=== PATIENT | male | born 1960 | race Caucasian/White ===

== ENCOUNTER → 2017-05-08 14:49 | Outpatient (CLI) | payer OTHER, SELFPAY ==
[2017-05-08 18:41] LABS: Microalbumin,Random Urine 9.8 mg/L (NO RANGE EST.); Microalbumin:Creatinine Ratio 6.6 mg/g CRE (<30 mg/g CRE)
[2017-05-08 18:47] LABS: Cholesterol 210 mg/dL (200); High Density Lipoprotein 43 mg/dL; Thyroid Stim Hormone (TSH) 1.05 uIU/mL (0.358-3.74); Triglycerides 196 mg/dL; Very Low Density Lipoprotein 39 mg/dL (5-40)
[2017-05-09 11:24] LABS: Vitamin B12 899 pg/mL (211-911)
== END ==
PROVIDERS: Family Provider Family Medicine; PCP Family Medicine; Visit Provider Family Medicine
DX: E78.00 Pure hypercholesterolemia, unspecified (principal); R20.2 Paresthesia of skin; I10 Essential (primary) hypertension
CPT/HCPCS: 36415; 80061; 82043; 82570; 82607; 84443

== ENCOUNTER → 2017-08-29 16:18 | Outpatient (CLI) | payer OTHER, SELFPAY ==
--- NOTE | 2017-08-29 | COLBX_PTH ---
PATIENT: ARI LEIGH LOC: [facility] U#:[id number] AGE/SX: 64/M ROOM: RE08/29/[address]: Dr. Jag Quintero MD : 1960 BED: DIS: SPEC #: [id number] RECD: 08/29/17 11:16 STATUS: LAITH JOSH #: [id number] JOSE: 08/29/17 00:[address]: Jag Quintero DEPT: SURGICAL PATHOLOGY RECD BY: Bob Hathaway ENTERED: 09/04/17 11:16 SP TYPE: COLON BX OTHR DR: Dr. Juan Polanco MD [facility] Tissues: Cecum, NOS Procedures: Surgery Specimen Level IV HEADER OPERATION: Colonoscopy with polypectomy PRE-OP DIAGNOSIS: Screening / polyp TISSUE SUBMITTED: Cecum polyp, rule out adenoma MICROSCOPIC DIAGNOSIS Cecal polyp, biopsy: Fragments of tubular adenoma. AM:terrell 09/05/17 MICROSCOPIC DESCRIPTION Slides are reviewed. GROSS DESCRIPTION Received in fixative is one container labeled with the patient's name and designated cecal biopsy. The specimen consists of multiple irregular fragments of light ho soft tissue that in aggregate measure 0.5 x 0.3 x 0.1 cm. The specimen is totally submitted in one cassette. / SJ:terrell 09/01/17 TC:5 CPT: 80199
== END ==
PROVIDERS: Family Provider Family Medicine; PCP Family Medicine; Visit Provider Internal Medicine Gastroenterology
DX: Z12.11 Encounter for screening for malignant neoplasm of colon (principal); D12.0 Benign neoplasm of cecum
CPT/HCPCS: 88305

== ENCOUNTER → 2018-08-10 12:10 | Outpatient (CLI) | payer BC, SELFPAY ==
--- NOTE | 2018-08-10 12:15 | US_ITS ---
STUDY: THYROID ULTRASOUND REASON FOR EXAM: Male, 57 years old. Nodule felt by physician TECHNIQUE: Ultrasound evaluation of the thyroid was performed with real-time and static kim-scale imaging. COMPARISON: None. FINDINGS: RIGHT LOBE: The right lobe of the thyroid gland measures 3.9 x 2.3 x 2.4 cm. There is a homogeneous echotexture. There are no demonstrated solid, cystic or complex lesions. LEFT LOBE: The left lobe of the thyroid gland measures 4.3 x 1.9 x 1.7 cm. There is a homogeneous echotexture. There is a solid 0.5 x 0.5 x 0.3 m nodule. This nodule is likely too small to be accurately evaluated with thyroid uptake study. Recommend a 6 month follow-up to assure stability. If it increases in size in the interim, biopsy would be recommended. ISTHMUS: The isthmus measures 0.4 cm. The regional lymph nodes are normal. US/Thyroid IMPRESSION: Normal sized homogeneous thyroid gland without 5 x 5 x 3 mm nodule in the mid left thyroid lobe. Recommend 6 month follow-up to assure stability Electronically Signed: Hernesto Titus MD at 18:09 EDT , Service support ,
== END ==
PROVIDERS: Family Provider Family Medicine; PCP Family Medicine; Referring Provider Family Medicine; Visit Provider Family Medicine
DX: E04.1 Nontoxic single thyroid nodule (principal)
CPT/HCPCS: 76536

== ENCOUNTER → 2018-10-20 12:19 | Outpatient (CLI) | payer BC, SELFPAY ==
[2018-10-20 14:28] LABS: ALB/GLOB Ratio 1.3 RATIO (0.9-2.4); AST(SGOT) 15 U/L (15-37); Alanine Aminotransfer ALT/SGPT 49 U/L (16-61); Albumin, Serum 4.1 g/dL (3.2-5.0); Alkaline Phosphatase 110 U/L (45-117); Anion Gap 8 (5-15); BUN 19 mg/dL (7-18); BUN/Creat Ratio 19.2 RATIO (10-20); Calcium,Total 9.5 mg/dL (8.5-10.1); Chloride 104 mmol/L (98-107); Cholesterol 177 mg/dL (200); Creatinine, Serum 0.99 mg/dL (0.70-1.30); EST Glomerular Filtration Rate 82 mL/min (>60); Est Glom Filt Rate - Afr Amer 99 mL/min (>60); Globulin 3.1 g/dL (2.2-4.2); Glucose 167 mg/dL (74-106); High Density Lipoprotein 46 mg/dL; Potassium 4.1 mmol/L (3.5-5.1); Protein, Total 7.2 g/dL (6.4-8.2); Sodium Level 140 mmol/L (136-145); Triglycerides 179 mg/dL; Very Low Density Lipoprotein 36 mg/dL (5-40)
[2018-10-20 14:30] LABS: Microalbumin,Random Urine 7.4 mg/L (NO RANGE EST.); Microalbumin:Creatinine Ratio 7.5 mg/g CRE (<30 mg/g CRE)
== END ==
PROVIDERS: Family Provider Family Medicine; PCP Family Medicine; Referring Provider Family Medicine; Visit Provider Family Medicine
DX: I10 Essential (primary) hypertension (principal); E78.00 Pure hypercholesterolemia, unspecified
CPT/HCPCS: 36415; 80053; 80061; 82043; 82570

== ENCOUNTER → 2018-11-19 12:18 | Outpatient (CLI) | payer BC, SELFPAY ==
[2018-11-19 13:52] LABS: Absolute Lymphocyte Count 1.36 X10^3/uL (0.83-4.51); Absolute Neutrophil Count 4.4 X10^3/uL (2.0-7.7); Basophil# 0.03 X10^3/uL; Basophil% 0.5 % (0-1); Eosinophil# 0.17 X10^3/uL; Eosinophils% 2.6 % (0-5); Hematocrit 40.2 % (40-54); Hemoglobin 13.4 g/dL (13.0-16.5); Lymphocyte # 1.36 X10^3/ul (4.0); Lymphocyte % 21.2 % (19-41); Mean Corp Hgb Conc 33.3 g/dL (32-36); Mean Corpuscular Hgb 32.3 pg (27.0-32.0); Mean Corpuscular Volume 96.9 fL (80-94); Mean Platelet Vol. 10.1 fl (6.2-12.0); Monocyte# 0.43 X10^3/uL; Monocyte% 6.7 % (0-10); NRBC Flagged by Analyzer 0 % (0-5); Neutrophil # 4.38 X10^3/uL (2.7-7.7); Neutrophil % 68.2 % (47-70); Platelet Count 207 K/mm3 (150-450); RBC Distribution Width CV 13.7 % (11.6-14.6); RBC Distribution Width SD 48.3 fl (35.1-43.9); Red Blood Count 4.15 M/mm3 (4.6-6.2); White Blood Count 6.4 K/mm3 (4.4-11.0)
== END ==
PROVIDERS: Family Provider Family Medicine; PCP Family Medicine; Referring Provider Internal Medicine Rheumatology; Visit Provider Internal Medicine Rheumatology
DX: D64.9 Anemia, unspecified (principal)
CPT/HCPCS: 36415; 85025

== ENCOUNTER → 2019-04-09 12:16 | Outpatient (CLI) | payer BC, SELFPAY ==
[2019-04-09 14:16] LABS: Color, Urine Yellow (Yellow); Glucose, Dipstick 1000 mg/dl (Normal); Ketone-Dipstick Negative (Negative); Leukocyte Esterase-Dipstick 25 /ul (Negative); Nitrite-Dipstick Negative (Negative); Occult Blood-Urine Negative /ul (Negative); Protein-Dipstick Negative (Negative); Specific Gravity, Urine 1.025 (1.002-1.030); Urine Bilirubin Dipstick Negative (Negative); Urine Clarity Clear (Clear); Urine Urobilinogen Normal (Normal)
[2019-04-09 14:17] LABS: Absolute Lymphocyte Count 1.37 X10^3/uL (0.83-4.51); Absolute Neutrophil Count 4.3 X10^3/uL (2.0-7.7); Basophil# 0.03 X10^3/uL; Basophil% 0.5 % (0-1); Eosinophil# 0.15 X10^3/uL; Eosinophils% 2.3 % (0-5); Hematocrit 45.9 % (40-54); Hemoglobin 15.2 g/dL (13.0-16.5); Lymphocyte # 1.37 X10^3/ul (4.0); Lymphocyte % 21.4 % (19-41); Mean Corp Hgb Conc 33.1 g/dL (32-36); Mean Corpuscular Hgb 31.1 pg (27.0-32.0); Mean Corpuscular Volume 94.1 fL (80-94); Mean Platelet Vol. 10.2 fl (6.2-12.0); Monocyte# 0.45 X10^3/uL; NRBC Flagged by Analyzer 0 % (0-5); Neutrophil % 67.4 % (47-70); Platelet Count 211 K/mm3 (150-450); RBC Distribution Width CV 13.4 % (11.6-14.6); RBC Distribution Width SD 45.6 fl (35.1-43.9); Red Blood Count 4.88 M/mm3 (4.6-6.2); White Blood Count 6.4 K/mm3 (4.4-11.0)
[2019-04-09 14:26] LABS: Bacteria RARE /hpf (None Seen); Mucous, Urine RARE /hpf (<or=2+); Red Blood Cells-Urine 0-5 SEEN /hpf (0-5); Squamous Epithelial Cells - UA 0-5 SEEN /hpf (0-5); White Blood Cells 0-5 SEEN /hpf (0-5)
[2019-04-09 14:40] LABS: Microalbumin,Random Urine 22.8 mg/L (NO RANGE EST.); Microalbumin:Creatinine Ratio 11.9 mg/g CRE (<30 mg/g CRE)
[2019-04-09 14:54] LABS: ALB/GLOB Ratio 1.1 RATIO (0.9-2.4); AST(SGOT) 24 U/L (15-37); Alanine Aminotransfer ALT/SGPT 57 U/L (16-61); Albumin, Serum 4.1 g/dL (3.2-5.0); Alkaline Phosphatase 129 U/L (45-117); Anion Gap 7 (5-15); BUN 18 mg/dL (7-18); BUN/Creat Ratio 16.8 RATIO (10-20); Chloride 103 mmol/L (98-107); Cholesterol 225 mg/dL (200); Creatinine, Serum 1.07 mg/dL (0.70-1.30); EST Glomerular Filtration Rate 75 mL/min (>60); Est Glom Filt Rate - Afr Amer 91 mL/min (>60); Globulin 3.8 g/dL (2.2-4.2); Glucose 224 mg/dL (74-106); High Density Lipoprotein 35 mg/dL; PSA,Total- Diagnostic 4.83 ng/mL (0.0-4.0); Potassium 4.1 mmol/L (3.5-5.1); Protein, Total 7.9 g/dL (6.4-8.2); Sodium Level 137 mmol/L (136-145); Triglycerides 175 mg/dL; Very Low Density Lipoprotein 35 mg/dL (5-40)
== END ==
PROVIDERS: Family Provider Family Medicine; PCP Family Medicine; Referring Provider Family Medicine; Visit Provider Family Medicine
DX: I10 Essential (primary) hypertension (principal); R35.8 Other polyuria; E88.81 Metabolic syndrome and other insulin resistance; E78.00 Pure hypercholesterolemia, unspecified
CPT/HCPCS: 36415; 80053; 80061; 81001; 82043; 82570; 83036; 84153; 85025

== ENCOUNTER → 2019-05-14 12:08 | Outpatient (CLI) | payer BC, SELFPAY ==
[2019-05-14 14:10] LABS: AST(SGOT) 12 U/L (15-37); Alanine Aminotransfer ALT/SGPT 38 U/L (16-61); Albumin, Serum 4.4 g/dL (3.2-5.0); Alkaline Phosphatase 93 U/L (45-117); Bilirubin, Direct 0.18 mg/dL (0.00-0.30); Globulin 3.2 g/dL (2.2-4.2); Protein, Total 7.6 g/dL (6.4-8.2)
== END ==
PROVIDERS: PCP Family Medicine; Referring Provider Internal Medicine Rheumatology; Visit Provider Internal Medicine Rheumatology
DX: R74.8 Abnormal levels of other serum enzymes (principal)
CPT/HCPCS: 36415; 80076

== ENCOUNTER 2019-08-17 13:44 | Outpatient (RCR) | payer BC, SELFPAY | END 2019-08-29 23:59 | LOC: DC 13:44 | PROVIDERS: PCP Family Medicine; Visit Provider Family Medicine | DX: Z71.3 Dietary counseling and surveillance (principal); E11.9 Type 2 diabetes mellitus without complications | CPT/HCPCS: 97802 ==

== ENCOUNTER 2019-09-21 13:00 | Outpatient (RCR) | payer BC, SELFPAY | END 2019-09-28 23:59 | LOC: DC 13:00 | PROVIDERS: PCP Family Medicine; Visit Provider Family Medicine | DX: Z71.3 Dietary counseling and surveillance (principal); E11.9 Type 2 diabetes mellitus without complications | CPT/HCPCS: 97803; G0108 ==

== ENCOUNTER 2019-10-06 12:24 | Outpatient (RCR) | payer BC, SELFPAY | END 2019-10-29 23:59 | LOC: DC 12:24 | PROVIDERS: PCP Family Medicine; Visit Provider Family Medicine | DX: Z71.3 Dietary counseling and surveillance (principal); E11.9 Type 2 diabetes mellitus without complications | CPT/HCPCS: G0108 ==

== ENCOUNTER 2019-11-03 14:11 | Outpatient (RCR) | payer BC, SELFPAY | END 2019-11-03 23:59 | disposition home or self-care (01) | LOC: DC 14:11 | PROVIDERS: PCP Family Medicine; Visit Provider Family Medicine | DX: Z71.3 Dietary counseling and surveillance (principal); E11.9 Type 2 diabetes mellitus without complications | CPT/HCPCS: 97803 ==

== ENCOUNTER → 2020-03-01 16:49 | Outpatient (CLI) | payer BC, SELFPAY ==
[2020-03-01 18:12] LABS: Absolute Lymphocyte Count 1.13 X10^3/uL (0.83-4.51); Absolute Neutrophil Count 3.4 X10^3/uL (2.0-7.7); Basophil# 0.03 X10^3/uL; Basophil% 0.6 % (0-1); Eosinophil# 0.14 X10^3/uL; Eosinophils% 2.8 % (0-5); Hematocrit 45.4 % (40-54); Hemoglobin 14.9 g/dL (13.0-16.5); Lymphocyte # 1.13 X10^3/ul (4.0); Lymphocyte % 22.9 % (19-41); Mean Corp Hgb Conc 32.8 g/dL (32-36); Mean Corpuscular Hgb 32.8 pg (27.0-32.0); Mean Platelet Vol. 10.2 fl (6.2-12.0); Monocyte% 4.1 % (0-10); NRBC Flagged by Analyzer 0 % (0-5); Neutrophil # 3.41 X10^3/uL (2.7-7.7); Neutrophil % 69.2 % (47-70); Platelet Count 223 K/mm3 (150-450); RBC Distribution Width CV 14.3 % (11.6-14.6); RBC Distribution Width SD 52.3 fl (35.1-43.9); Red Blood Count 4.54 M/mm3 (4.6-6.2); White Blood Count 4.9 K/mm3 (4.4-11.0)
[2020-03-01 18:46] LABS: Hemoglobin A1c 5.7 % (3.8-5.6)
[2020-03-01 19:09] LABS: ALB/GLOB Ratio 1.1 RATIO (0.9-2.4); AST(SGOT) 20 U/L (15-37); Alanine Aminotransfer ALT/SGPT 56 U/L (16-61); Albumin, Serum 4.3 g/dL (3.2-5.0); Alkaline Phosphatase 94 U/L (45-117); Anion Gap 9 (5-15); BUN 21 mg/dL (7-18); BUN/Creat Ratio 19.4 RATIO (10-20); Calcium,Total 9.8 mg/dL (8.5-10.1); Chloride 105 mmol/L (98-107); Cholesterol 222 mg/dL (200); Creatinine, Serum 1.08 mg/dL (0.70-1.30); EST Glomerular Filtration Rate 74 mL/min (>60); Est Glom Filt Rate - Afr Amer 89 mL/min (>60); Globulin 3.8 g/dL (2.2-4.2); Glucose 103 mg/dL (74-106); High Density Lipoprotein 59 mg/dL; PSA,Total- Diagnostic 4.53 ng/mL (0.0-4.0); Potassium 3.8 mmol/L (3.5-5.1); Protein, Total 8.1 g/dL (6.4-8.2); Sodium Level 139 mmol/L (136-145); Triglycerides 188 mg/dL; Very Low Density Lipoprotein 38 mg/dL (5-40)
== END ==
PROVIDERS: PCP Family Medicine; Referring Provider Family Medicine; Visit Provider Family Medicine
DX: M06.9 Rheumatoid arthritis, unspecified (principal); E11.9 Type 2 diabetes mellitus without complications; R97.20 Elevated prostate specific antigen [PSA]
CPT/HCPCS: 36415; 80053; 80061; 83036; 84153; 85025

== ENCOUNTER → 2020-06-09 12:24 | Outpatient (CLI) | payer BC, SELFPAY ==
[2020-06-09 15:06] LABS: AST(SGOT) 15 U/L (15-37); Alanine Aminotransfer ALT/SGPT 44 U/L (16-61); Albumin, Serum 4.2 g/dL (3.2-5.0); Alkaline Phosphatase 111 U/L (45-117); Bilirubin, Direct 0.13 mg/dL (0.00-0.30); Globulin 3.6 g/dL (2.2-4.2); Protein, Total 7.8 g/dL (6.4-8.2)
== END ==
PROVIDERS: PCP Family Medicine; Referring Provider Internal Medicine Rheumatology; Visit Provider Internal Medicine Rheumatology
DX: R74.8 Abnormal levels of other serum enzymes (principal)
CPT/HCPCS: 36415; 80076

== ENCOUNTER → 2020-08-11 10:16 | Outpatient (CLI) | payer BC, SELFPAY ==
[2020-08-11 12:08] LABS: Absolute Lymphocyte Count 1.18 X10^3/uL (0.83-4.51); Absolute Neutrophil Count 3.4 X10^3/uL (2.0-7.7); Basophil# 0.04 X10^3/uL; Basophil% 0.8 % (0-1); Eosinophils% 3.9 % (0-5); Hematocrit 41.7 % (40-54); Lymphocyte # 1.18 X10^3/ul (0.83-4.51); Lymphocyte % 22.8 % (19-41); Mean Corp Hgb Conc 33.6 g/dL (32-36); Mean Corpuscular Hgb 31.5 pg (27.0-32.0); Mean Corpuscular Volume 93.9 fL (80-94); Mean Platelet Vol. 10.4 fl (6.2-12.0); Monocyte% 5.8 % (0-10); NRBC Flagged by Analyzer 0 % (0-5); Neutrophil # 3.42 X10^3/uL (2.7-7.7); Neutrophil % 66.1 % (47-70); Platelet Count 226 K/mm3 (150-450); RBC Distribution Width CV 13.2 % (11.6-14.6); RBC Distribution Width SD 45.3 fl (35.1-43.9); Red Blood Count 4.44 M/mm3 (4.6-6.2); White Blood Count 5.2 K/mm3 (4.4-11.0)
[2020-08-11 12:56] LABS: Vitamin D,25 Hydroxy 43.1 ng/mL
[2020-08-11 12:59] LABS: ALB/GLOB Ratio 1.2 RATIO (0.9-2.4); AST(SGOT) 19 U/L (15-37); Alanine Aminotransfer ALT/SGPT 45 U/L (16-61); Alkaline Phosphatase 99 U/L (45-117); Anion Gap 8 (5-15); BUN 18 mg/dL (7-18); BUN/Creat Ratio 17.1 RATIO (10-20); Chloride 105 mmol/L (98-107); Cholesterol 189 mg/dL (200); Creatinine, Serum 1.05 mg/dL (0.70-1.30); EST Glomerular Filtration Rate 76 mL/min (>60); Est Glom Filt Rate - Afr Amer 92 mL/min (>60); Globulin 3.3 g/dL (2.2-4.2); Glucose 184 mg/dL (74-106); High Density Lipoprotein 46 mg/dL; PSA,Total- Diagnostic 4.46 ng/mL (0.0-4.0); Potassium 3.9 mmol/L (3.5-5.1); Protein, Total 7.3 g/dL (6.4-8.2); Sodium Level 139 mmol/L (136-145); Thyroid Stim Hormone (TSH) 1.26 uIU/mL (0.358-3.74); Triglycerides 140 mg/dL; Very Low Density Lipoprotein 28 mg/dL (5-40)
[2020-08-11 13:14] LABS: Hemoglobin A1c 7.7 % (3.8-5.6)
== END ==
PROVIDERS: PCP Family Medicine; Referring Provider Family Medicine; Visit Provider Family Medicine
DX: E11.65 Type 2 diabetes mellitus with hyperglycemia (principal); R97.20 Elevated prostate specific antigen [PSA]; M06.9 Rheumatoid arthritis, unspecified
CPT/HCPCS: 36415; 80053; 80061; 82306; 83036; 84153; 84443; 85025

== ENCOUNTER → 2020-09-01 07:43 | Outpatient (CLI) | payer BC, SELFPAY ==
--- NOTE | 2020-09-01 07:48 | US_ITS ---
STUDY: ABDOMINAL ULTRASOUND - RIGHT UPPER QUADRANT REASON FOR VISIT: Male, 59 years old ELEVATED LIVER ENZYMES TECHNIQUE: Ultrasound evaluation of the right upper quadrant was performed with real-time and static kim-scale imaging. TECHNICAL QUALITY: Adequate. COMPARISON: None. FINDINGS: Liver: The liver measures 14.9 cm. There is increased echogenicity consistent with fatty infiltration. The bile ducts are within normal limits. There is hepatic color flow. The direction of portal flow is hepatopetal. There is no demonstrated mass lesion. Gallbladder: Normal distended gallbladder. The gallbladder wall measures 2.6 mm. There is a negative sonographic Dillard''s sign. There is no pericholecystic fluid. There are no gallstones. Common Bile Duct (C.B.D.): The common bile duct measures 5.4 mm. Pancreas: Normal size of the head, body and tail of the pancreas. There is increased echogenicity of the pancreas. There is no demonstrated pancreatic mass or cyst. Right Kidney: Normal size of the right kidney. The right kidney measures 11.3 cm x 5.4 cm x 5.8 cm. Normal renal cortex. The right cortex measures 2 cm. There is no demonstrated renal mass or cyst. There is no right hydronephrosis. US/Liver IMPRESSION: Fatty infiltration of the liver. Electronically Signed: Nilson Payan MD at 13:09 EDT , Service support ,
== END ==
PROVIDERS: PCP Family Medicine; Visit Provider Internal Medicine Rheumatology
DX: R74.8 Abnormal levels of other serum enzymes (principal)
CPT/HCPCS: 76705

== ENCOUNTER → 2020-10-06 12:41 | Outpatient (CLI) | payer BC, SELFPAY ==
[2020-10-06 16:27] LABS: AST(SGOT) 14 U/L (15-37); Alanine Aminotransfer ALT/SGPT 40 U/L (16-61); Albumin, Serum 4.4 g/dL (3.2-5.0); Alkaline Phosphatase 95 U/L (45-117); Bilirubin, Direct 0.09 mg/dL (0.00-0.30); Globulin 3.6 g/dL (2.2-4.2)
== END ==
PROVIDERS: PCP Family Medicine; Referring Provider Internal Medicine Rheumatology; Visit Provider Internal Medicine Rheumatology
DX: R74.8 Abnormal levels of other serum enzymes (principal)
CPT/HCPCS: 36415; 80076

== ENCOUNTER 2021-05-15 09:00 | Outpatient (CLI) | payer BC, SELFPAY ==
[2021-05-15 10:58] LABS: Microalbumin,Random Urine 10.1 mg/L (NO RANGE EST.)
[2021-05-15 11:00] LABS: Hemoglobin A1c 5.9 % (3.8-5.6)
[2021-05-15 11:20] LABS: ALB/GLOB Ratio 1.1 RATIO (0.9-2.4); AST(SGOT) 19 U/L (15-37); Alanine Aminotransfer ALT/SGPT 49 U/L (16-61); Albumin, Serum 3.8 g/dL (3.2-5.0); Alkaline Phosphatase 84 U/L (45-117); Anion Gap 7 (5-15); BUN 18 mg/dL (7-18); Chloride 112 mmol/L (98-107); Cholesterol 186 mg/dL (200); Creatinine, Serum 1.06 mg/dL (0.70-1.30); EST Glomerular Filtration Rate 75 mL/min (>60); Est Glom Filt Rate - Afr Amer 91 mL/min (>60); Globulin 3.5 g/dL (2.2-4.2); Glucose 130 mg/dL (74-106); High Density Lipoprotein 42 mg/dL; PSA,Total - Annual Screen 5.46 ng/mL (0.00-4.00); Potassium 3.6 mmol/L (3.5-5.1); Protein, Total 7.3 g/dL (6.4-8.2); Sodium Level 143 mmol/L (136-145); Triglycerides 131 mg/dL; Very Low Density Lipoprotein 26 mg/dL (5-40)
== END 2021-05-15 23:59 | disposition home or self-care (01) ==
LOC: MFPLAB 09:04
PROVIDERS: PCP Family Medicine; Referring Provider Family Medicine; Visit Provider Family Medicine
DX: Z00.00 Encounter for general adult medical examination without abnormal findings (principal); E11.8 Type 2 diabetes mellitus with unspecified complications; N40.0 Benign prostatic hyperplasia without lower urinary tract symptoms
CPT/HCPCS: 36415; 80053; 80061; 82043; 82570; 83036; 84153; G0103

== ENCOUNTER 2021-07-03 11:53 | Outpatient (CLI) | payer BC, SELFPAY | END 2021-07-03 23:59 | disposition home or self-care (01) | LOC: MTLAB 11:54 | PROVIDERS: PCP Family Medicine; Referring Provider Family Medicine; Visit Provider Family Medicine | DX: R97.20 Elevated prostate specific antigen [PSA] (principal) | CPT/HCPCS: 36415; 84153 ==

== ENCOUNTER → 2021-10-04 | Outpatient (CLI) | payer BC, SELFPAY ==
--- NOTE | 2021-10-04 08:00 | PROSBIL_PTH ---
PATIENT: ARI LEIGH LOC: [facility] U#:[id number] AGE/SX: 60/M ROOM: RE10/04/[address]: Dr. Tawanda Benoit MD : 1960 BED: DIS: 10/04/2021 SPEC #: [id number] RECD: 10/04/21 16:23 STATUS: LAITH MORENO #: [id number] JOSE: 10/04/21 08:[address]: Tawanda Benoit DEPT: SURGICAL PATHOLOGY RECD BY: Jaylin Villa ENTERED: 10/05/21 08:38 SP TYPE: PROST BX [place] DR: Dr. Juan Polanco MD Tissues: A - PROSTATE RIGHT B - PROSTATE RIGHT C - PROSTATE RIGHT D - PROSTATE LEFT E - PROSTATE LEFT F - PROSTATE LEFT Procedures: PROSTATE BX HEADER OPERATION: Prostate biopsy PRE-OP DIAGNOSIS: Elevated PSA TISSUE SUBMITTED: A - Right apex, B - Right mid, C - Right base, D - Left apex, E - Left mid, F - Left base MICROSCOPIC DIAGNOSIS A. Right prostate, apex, core biopsy: Prostatic tissue, negative for malignancy. Focal mild chronic inflammation. B. Right prostate, mid, core biopsy: Prostatic tissue, negative for malignancy. C. Right prostate, base, core biopsy: Prostatic tissue, negative for malignancy. D. Left prostate, apex, core biopsy: Prostatic tissue, negative for malignancy. E. Left prostate, mid, core biopsy: Prostatic tissue, negative for malignancy. Focal atrophy and mild chronic inflammation. F. Left prostate, base, core biopsy: Prostatic tissue, negative for malignancy. SJ:terrell 10/08/2021 MICROSCOPIC DESCRIPTION Slides are reviewed. GROSS DESCRIPTION A - Received is one container designated prostate, right apex. The specimen consists of two elongated fragments of light ho-white soft tissue measuring 1.2 and 1.5 cm in length and 0.1 cm in diameter. The specimen is totally submitted in one cassette. B - Received is one container designated prostate, right mid. The specimen consists of two elongated fragments of light ho-white soft tissue measuring 0.8 and 1.7 cm in length and 0.1 cm in diameter. The specimen is totally submitted in one cassette. C - Received is one container designated prostate, right base. The specimen consists of one elongated fragment of light ho-white soft tissue measuring 2 cm in length and 0.1 cm in diameter. The specimen is totally submitted in one cassette. D - Received is one container designated prostate, left apex. The specimen consists of two elongated fragments of light ho-white soft tissue measuring 0.8 and 1.5 cm in length and 0.1 cm in diameter. The specimen is totally submitted in one cassette. E - Received is one container designated prostate, left mid. The specimen consists of two elongated fragments of light ho-white soft tissue measuring 0.3 and 1.2 cm in length and 0.1 cm in diameter. The specimen is totally submitted in one cassette. F - Received is one container designated prostate, left base. The specimen consists of two elongated fragments of light ho-white soft tissue measuring 1 and 1.5 cm in length and 0.1 cm in diameter. The specimen is totally submitted in one cassette. / SJ:rg 10/05/2021 TC:3 CPT: 89942 x6
== END | disposition home or self-care (01) ==
LOC: LABSPEC 16:39
PROVIDERS: PCP Family Medicine; Referring Provider Urology; Visit Provider Urology
DX: R97.20 Elevated prostate specific antigen [PSA] (principal)
CPT/HCPCS: 88305; G0416

== ENCOUNTER → 2021-11-22 | Outpatient (CLI) | payer BC, SELFPAY ==
--- NOTE | 2021-11-22 16:41 | RAD_ITS ---
STUDY: X-RAY - LEFT KNEE REASON FOR EXAM: Male, 61 years old. PAIN TECHNIQUE: 4 view(s) of the knee. Standing COMPARISON: None. FINDINGS: Normal visualized distal femur. Normal visualized proximal tibia and fibula. Normal proximal tibiofibular articulation. There is moderate degenerative arthrosis of the medial femorotibial compartment with moderate joint space narrowing. There is mild degenerative arthrosis of the lateral femorotibial compartment. There is mild degenerative arthrosis of the patellofemoral articulation. Moderate to severe medial compartment joint space height loss The soft tissue structures are unremarkable. RAD/Knee 4 or More Views IMPRESSION: Degenerative changes as above Electronically Signed: Clement Schaffer DO at 0:47 EDT ,
== END | disposition home or self-care (01) ==
LOC: MTRAD 16:41
PROVIDERS: PCP Family Medicine; Referring Provider Family Medicine; Visit Provider Family Medicine
DX: M25.562 Pain in left knee (principal)
CPT/HCPCS: 73564

== ENCOUNTER 2022-02-04 08:17 | Outpatient (RCR) | payer BC, SELFPAY ==
--- NOTE | 2022-02-04 09:27 | HP.OTEVAL ---
Patient's Visit Information REA LEIGH is a 61 year old M, referred to Occupational Therapy by Dr. Aaron Davis DO, with a diagnosis of Right Palmar fascial fibromatosis (Dupuytren's). Date of Evaluation: 02/04/22 Occupational Therapist: Suly Vera, CAESAR/Rossy, CHT - Subjective This 61 year old male was seen for OT eval with dx of left palmar fascial fibromatosis (Dupuytran's) and had the xiaflex injection with manipulation done- pt states he is in brace at night - and reports dr. 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 pt is right handed- - ROM MP: right LF -15/85 left LF-10/90 right RF -20/80 left -10/80 PIP: right LF +15/85 left LF -5/90 right RF +25/95 left -10/100 DIP: right LF 0/45 left LF 0/55 right RF 0/45 left RF 0/50 - Strength [employer] Director: right 95# left 85# Lateral Pinch: right 14# left 14# Tripod Pinch: right 16# left 14# - Sensation Sensation Comments: denies - - Quick DASH-Disab of Arm,Shoulder& Hand Quick DASH Score: 12.5000 - Goals Goal:ROM equal to unaffected hand: Yes Goal:Full use of affected hand in daily activities including: Yes - Rehabilitation General Assessment: pt arrives after having Ziaflex injection with manipulation on left LF to decrease MCP and PIP PIP contractures- pt presents today with great extension of left LF but limited ability to form a composite fist- Pt wants to make full composite fist so arrives today with questions on what he can do to gain ROM. Therapist ed. pt on dx, and PROM AROM and place hand hold ex. and scar massage- pt was given handout and demo. understanding of his Exercise and agree to POC. Rehabilitation Potential: Good - Anticipated Interventions A/AAROM/PROM, Orthoses, Home Program - Visit Plan TEXT: Thank you for the opportunity to evaluate your patient. For Medicare and Medicare HMO plans, please review the plan of care and approve it. It will need to be FAXED BACK to us at [phone] for Medicare purposes. Please let me know if there are questions or concerns regarding this plan of care. Physician Signature: Date:
--- NOTE | 2022-04-18 13:28 | HP.OT.NRP ---
REA CHRISTIANE CARRERAGARTNER was seen in my office for initial evaluation on 02/04/22. The following Plan of Care was established for this patient: Anticipated Interventions: A/AAROM/PROM, Orthoses, Home Program This patient was last seen in our office 02/04/22. Pertinent comments regarding their Occupational therapy will appear below: pt was seen for one OT session and at this time has not scheduled further apts. pt d/c due to time lapse in services. At this point I will be discontinuing this patient from occupational therapy. I would be happy to see this patient again in the future if found appropriate by the physician. Thank you! Suly Vera, OTR/L, CHT
== END 2022-02-04 19:00 | disposition home or self-care (01) ==
LOC: OT 08:17
PROVIDERS: PCP Family Medicine; Referring Provider Student in an Organized Health Care Education/Training Program; Visit Provider Student in an Organized Health Care Education/Training Program
DX: M72.0 Palmar fascial fibromatosis [Dupuytren] (principal)
CPT/HCPCS: 97110; 97166

== ENCOUNTER → 2022-03-08 | Outpatient (CLI) | payer BC, SELFPAY ==
[2022-03-08 15:47] LABS: AST(SGOT) 13 U/L (15-37); Alanine Aminotransfer ALT/SGPT 51 U/L (16-61); Albumin, Serum 4.3 g/dL (3.2-5.0); Alkaline Phosphatase 95 U/L (45-117); Bilirubin, Direct 0.14 mg/dL (0.00-0.30); Globulin 3.1 g/dL (2.2-4.2); Protein, Total 7.4 g/dL (6.4-8.2)
== END | disposition home or self-care (01) ==
LOC: MTLAB 12:33
PROVIDERS: PCP Family Medicine; Referring Provider Internal Medicine Rheumatology; Visit Provider Internal Medicine Rheumatology
DX: R74.8 Abnormal levels of other serum enzymes (principal)
CPT/HCPCS: 36415; 80076

== ENCOUNTER → 2022-04-04 | Outpatient (CLI) | payer BC, SELFPAY ==
[2022-04-04 14:12] LABS: PSA,Total- Diagnostic 5.19 ng/mL (0.0-4.0)
== END | disposition home or self-care (01) ==
LOC: LAB 12:31
PROVIDERS: PCP Family Medicine; Referring Provider Urology; Visit Provider Urology
DX: R97.20 Elevated prostate specific antigen [PSA] (principal)
CPT/HCPCS: 36415; 84153

== ENCOUNTER 2022-09-16 19:25 | Observation (INO) | payer OTHER, SELFPAY ==
[2022-09-16] VITALS (12 sets, daily range): BP systolic 164–213; BP diastolic 93–113; PULSE 77–88; RESP 12–20; TEMP 36.4–36.6; O2SAT 92–99; BMI 31.5; BMI 31.2
--- NOTE | 2022-09-16 19:38 | CT_ITS ---
We are attempting to reach an attending provider to discuss findings. An addendum with communication details will be sent when the communication is complete. INDICATION: Neuro deficit, acute, stroke suspected EXAMINATION: CT BRAIN - CT Head Stroke Protocol W/O Contrast Injection TECHNIQUE: Multiple axial images were obtained of the head without intravenous contrast. A radiation dose optimization technique was used for this scan. IV Contrast dosage and agent: None. COMPARISON: FINDINGS: BRAIN PARENCHYMA: No intra- or extra-axial hemorrhage. No evidence of acute infarct. No intracranial mass or mass effect. There is preservation of the kim/white matter interface. Posterior fossa structures are unremarkable. CSF SPACES: Appropriate for age. No hydrocephalus. Basal cisterns are patent. CALVARIUM, SKULL BASE, PARANASAL SINUSES AND MASTOID AIR CELLS: Clear. No discrete lytic or blastic abnormalities. ORBITS: Both globes, extraocular muscles, optic nerves and retrobulbar fat appear unremarkable. ASPECTS Score for Acute Strokes: 10 CT/STROKE Brain/Head without Cont IMPRESSION: Negative Brain CT without contrast. Electronically Signed: Alec Lee DO at 19:54 EDT ,
--- NOTE | 2022-09-16 19:45 | EDS_ITS ---
HPI History of Present Illness Chief Complaint: Stroke Alert Informant: patient Onset/Context/Timing Onset: Today Narrative Narrative: Patient presents to triage with stroke symptoms. Patient states he worked today and felt fine. Around 7 PM this evening he was doing dishes when he started feeling dizzy and his left knee popped. He states it fell like it gave out on him. Family reports that he had left-sided facial droop and he had some vision loss from his left eye. Symptoms are all improving at this time but he states is not quite back to baseline. He does report a history of diabetes. He does admit that he has been out of his diabetes medications and has not taken them in quite some time. [facility] Medical History Diabetes High cholesterol HTN (hypertension) Home Medications leucovorin calcium 5 mg tablet 5 mg PO QWEEK 09/16/22 [History Last Taken Unknown] methotrexate sodium 2.5 mg tablet 2.5 mg PO QWEEK 09/16/22 [History Last Taken Unknown] Allergy/AdvReac Type Severity Reaction Status Date / Time No Known Allergies Allergy Verified 09/16/22 19:31 Social History Smoking Status: Never smoker ROS ROS ED Constitutional Constitutional ED: Denies chills or fever(s) Eyes Eyes: Reports change in vision; Denies discharge from eye(s) ENT ENT ED: Denies discharge from eye(s), rhinorrhea or sore throat Cardiovascular Cardiovascular: Denies chest pain or palpitations Respiratory/Chest Respiratory/Chest: Denies cough or dyspnea Gastrointestinal Gastrointestinal: Denies abdominal pain, nausea or vomiting Genitourinary Genitourinary ED: Denies dysuria Musculoskeletal Musculoskeletal: Denies back pain or extremity pain Integumentary Denies Abrasions or rash Neurologic Neurologic: Reports paresthesias and weakness; Denies headache(s) Psychiatric Psychiatric: Denies anxiety or depression Allergic/Immunologic Allergic/Immunologic ED: Denies lip swelling or urticaria EXAM Physical Exam Const Vital Signs: 09/16/22 19:28 09/16/22 19:41 09/16/22 19:38 Temperature 97.5 F L Temperature Source Temporal Pulse Rate 86 88 83 Respiratory Rate 16 16 Blood Pressure 203/113 H 213/112 H Blood Pressure Mean 143 145 Pulse Ox 97 97 Oxygen Delivery Method Room Air 09/16/22 19:51 09/16/22 20:08 09/16/22 20:30 Temperature 97.9 F Temperature Source Oral Pulse Rate 85 87 87 Respiratory Rate 15 18 20 H Blood Pressure 200/93 H 184/93 H 164/100 H Blood Pressure Mean 128 123 121 Pulse Ox 93 92 97 Oxygen Delivery Method Room Air Room Air Room Air 09/16/22 21:00 09/16/22 21:30 Temperature Temperature Source Pulse Rate 86 77 Respiratory Rate 16 12 Blood Pressure 174/94 H 169/99 H Blood Pressure Mean 120 122 Pulse Ox 96 97 Oxygen Delivery Method Room Air Room Air Positive well nourished and well developed General Appearance ED: well developed HEENT Reports normocephalic and head/scalp atraumatic Eyes PERRL and EOMs intact bilaterally Neck supple Chest Wall inspection of chest normal and palpation of chest normal Resp normal respiratory effort and clear to auscultation bilaterally Cardio regular rate and regular rhythm GI normal to inspection, nondistended, normoactive bowel sounds Palpation: soft Extremity normal to inspection Neuro oriented x3 and no sensory deficits noted Sensorium / Orientation: alert Motor Exam: strength 5/5 throughout Psych mental status grossly normal Skin no rashes or lesions noted NIHSS NIHSS Initial: 1a Level of Consciousness: 0 1b LOC Questions (Score 2 if aphasic/stupor): 0 1c LOC Commands (Only score 1st attempt): 0 2 Best Gaze (If aphasic, use reflexive mvmts.): 0 3 Visual: 0 4 Facial Palsy: 0 5 Motor Arm Right (UN = amputation/fusion): 0 5 Motor Arm Left: 0 6 Motor Leg Right: 0 6 Motor Leg Left: 0 7 Limb ataxia (Only + if out of proportion): 0 8 Sensory (Aphasia/stupor=0 or 1, coma=2): 0 9 Best Language: 0 10 Dysarthria (mute, coma=2, intubated=UN): 0 11 Extinction and Inattention (only scored if +): 0 Total Score: 0 MDM MDM MDM Narrative Medical decision making narrative: Stroke work-up initiated. Neurologist from [facility] evaluate the patient online and again felt his NIH was 0. She recommended CTA to ensure no LVO but would require observation for the remainder of the stroke work-up. Lab Data Attestation: I reviewed the patient's lab results. Labs: Laboratory Results - last 24 hr 09/16/22 09/16/22 09/16/22 19:30 19:40 19:40 WBC 6.4 RBC 4.93 Hgb 15.7 Hct 45.1 MCV 91.5 MCH 31.8 MCHC 34.8 RDW Std Deviation 44.8 H RDW Coeff of Jason 13.4 Plt Count 185 MPV 10.3 Immature Gran % (Auto) 0.600 Neut % (Auto) 60.6 Lymph % (Auto) 27.8 [place] % (Auto) 7.5 Eos % (Auto) 3.0 Baso % (Auto) 0.5 Absolute Neuts (auto) 3.9 Absolute Lymphs (auto) 1.77 Nucleated RBC % 0 PT 12.6 INR 0.9 APTT 27.4 Sodium Potassium Chloride Carbon Dioxide Anion Gap BUN Creatinine Estim Creat Clear Calc Est GFR (MDRD) Af Amer Est GFR (MDRD) Non-Af BUN/Creatinine Ratio Glucose Calcium Troponin I High Sens POC Glucose 250 H 09/16/22 19:40 WBC RBC Hgb Hct MCV MCH MCHC RDW Std Deviation RDW Coeff of Jason Plt Count MPV Immature Gran % (Auto) Neut % (Auto) Lymph % (Auto) [place] % (Auto) Eos % (Auto) Baso % (Auto) Absolute Neuts (auto) Absolute Lymphs (auto) Nucleated RBC % PT INR APTT Sodium 139 Potassium 3.8 Chloride 107 Carbon Dioxide 26.0 Anion Gap 6 BUN 23 H Creatinine 1.12 Estim Creat Clear Calc 69.70 Est GFR (MDRD) Af Amer 85 Est GFR (MDRD) Non-Af 70 BUN/Creatinine Ratio 20.5 H Glucose 270 H Calcium 10.2 H Troponin I High Sens 6 POC Glucose Radiography Chest X-Ray - ED: 1 View, Read by ED Physician, Normal, Heart, Lungs and Medias tinum Diagnostic Testing: Clinical Impression(s) from Imaging Studies Brain CT 09/16/22 19:38 IMPRESSION: Negative Brain CT without contrast. Electronically Signed: Alec Lee DO at 19:54 EDT Reading Location ID and State: [facility] / [place] Tel [phone], Service support , ADDENDUM: 09/16/222001 IMPRESSION: Negative Brain CT without contrast. N.B. : The above Results were Read Back by Alec Lee DO to Jacinda Chung MD, and understanding confirmed on 09/16/2022 19:55:16 (ET). Electronically Signed: Alec Lee DO at 19:54 EDT , ADDENDUM: 09/16/222007 IMPRESSION: Negative Brain CT without contrast. N.B. : The above Results were Read Back by Alec Lee DO to Jacinda Chung MD, and understanding confirmed on 09/16/2022 20:01:11 (ET). Electronically Signed: Alec Lee DO at 19:54 EDT , Chest X-Ray 09/16/22 19:55 IMPRESSION: No radiographic evidence of acute cardiopulmonary disease. Electronically Signed: Alec Lee DO at 20:43 EDT , Head/Neck CTA 09/16/22 20:45 IMPRESSION: Short segment high-grade stenosis at the proximal right posterior cerebral artery. Moderate stenosis of the intracranial segment of right vertebral artery. Electronically Signed: Alec Lee DO at 21:19 EDT , EKG Initial EKG: Attestation: I personally reviewed and interpreted this EKG as follows: Interpretation: Sinus Rhythm (Sinus at 91 with PACs. No acute ischemia.) Treatment and Re-Evaluation Narrative: Patient has an NIH stroke score of 0 at this time and appears to have had a TIA. CBC is unremarkable. Coags are normal. Glucose on arrival is 250 and chemistry studies confirm a glucose of 270. Renal function reveals a BUN of 23 and a creatinine 1.12. Troponin is normal at 6. Portable chest x-ray per my interpretation is normal. Radiology interpretation is reviewed. Head CT noncontrast shows no acute findings. CTA of the head and neck reveals a 80 to 90% stenosis in the right posterior cerebral artery. I spoke with both Dr. Mayes as well as the stroke neurologist regarding this. They both agree that this is medical management and no intervention will be required. This is been discussed with the patient. I will speak with the hospitalist regarding admission for remainder of stroke work-up. Discharge Plan Triage Chief Complaint: Stroke Alert ED Provider: Jacinda Chung Dx/Rx/DC Orders Clinical Impression: Brain TIA Prescriptions: No Action methotrexate sodium 2.5 mg tablet 2.5 mg PO QWEEK Rx Instructions: FRIDAY leucovorin calcium 5 mg tablet 5 mg PO QWEEK Rx Instructions: FRIDAY Primary Care Provider: Juan Polanco Referrals: Juan Polanco MD [Primary Care Provider] - Disposition Disposition: Acute Care Hospital [facility]
[2022-09-16 19:52] LABS: Bedside Glucose 250 mg/dL (74-106)
--- NOTE | 2022-09-16 19:55 | RAD_ITS ---
INDICATION: Neuro deficit, acute, stroke suspected EXAMINATION/TECHNIQUE: X-RAY - XR Chest 1 View COMPARISON: FINDINGS: LINES/DEVICES: None. LUNGS: No consolidation, edema or effusion. No pneumothorax. MEDIASTINUM AND CARDIOVASCULAR STRUCTURES: Cardiac silhouette not enlarged. Central airways and mediastinal contour are unremarkable. BONES AND SOFT TISSUES: There are multiple probable old left rib fractures. RAD/Chest 1 View IMPRESSION: No radiographic evidence of acute cardiopulmonary disease. Electronically Signed: Alec Lee DO at 20:43 EDT ,
[2022-09-16 19:57] LABS: Absolute Lymphocyte Count 1.77 X10^3/uL (0.83-4.51); Absolute Neutrophil Count 3.9 X10^3/uL (2.0-7.7); Basophil# 0.03 X10^3/uL; Basophil% 0.5 % (0-1); Eosinophil# 0.19 X10^3/uL; Hematocrit 45.1 % (40-54); Hemoglobin 15.7 g/dL (13.0-16.5); Lymphocyte # 1.77 X10^3/ul (0.83-4.51); Lymphocyte % 27.8 % (19-41); Mean Corp Hgb Conc 34.8 g/dL (32-36); Mean Corpuscular Hgb 31.8 pg (27.0-32.0); Mean Corpuscular Volume 91.5 fL (80-94); Mean Platelet Vol. 10.3 fl (6.2-12.0); Monocyte# 0.48 X10^3/uL; Monocyte% 7.5 % (0-10); NRBC Flagged by Analyzer 0 % (0-5); Neutrophil # 3.86 X10^3/uL (2.7-7.7); Neutrophil % 60.6 % (47-70); Platelet Count 185 K/mm3 (150-450); RBC Distribution Width CV 13.4 % (11.6-14.6); RBC Distribution Width SD 44.8 fl (35.1-43.9); Red Blood Count 4.93 M/mm3 (4.6-6.2); White Blood Count 6.4 K/mm3 (4.4-11.0)
[2022-09-16 20:10] LABS: International Normalized Ratio 0.9; Prothrombin Time (Protime)PT. 12.6 SECONDS (11.7-14.9)
[2022-09-16 20:11] LABS: Partial Thromboplast Time 27.4 Seconds (24.1-36.2)
[2022-09-16 20:20] LABS: Anion Gap 6 (5-15); BUN 23 mg/dL (7-18); BUN/Creat Ratio 20.5 RATIO (10-20); Calcium,Total 10.2 mg/dL (8.5-10.1); Chloride 107 mmol/L (98-107); Creatinine, Serum 1.12 mg/dL (0.70-1.30); EST Glomerular Filtration Rate 70 mL/min (>60); Est Glom Filt Rate - Afr Amer 85 mL/min (>60); Glucose 270 mg/dL (74-106); Potassium 3.8 mmol/L (3.5-5.1); Sodium Level 139 mmol/L (136-145); Troponin-I HS 6 pg/mL (3.0-78.0)
--- NOTE | 2022-09-16 20:45 | CT_ITS ---
INDICATION: TIA EXAMINATION: CTA BRAIN/NECK WITH CONTRAST TECHNIQUE: Routine carotid CT angiogram protocol was performed without and with IV contrast. In addition, images were obtained of the [place] of [place]. NASCET criteria using the distal ICAs for comparison were used for evaluation of stenoses. 3D reconstructions were reviewed. A radiation dose optimization technique was used for this scan. IV Contrast dosage and agent: COMPARISON: None. FINDINGS: --CTA NECK: AORTIC ARCH AND BRANCHES: Normal anatomy, patent. RIGHT CCA: No occlusion, significant stenosis or dissection. RIGHT CAROTID BULB: Mild atherosclerotic calcifications with no hemodynamically significant stenosis. RIGHT ICA: No occlusion, significant stenosis or dissection. LEFT CCA: No occlusion, significant stenosis or dissection. LEFT CAROTID BULB: Mild atherosclerotic calcifications with no hemodynamically significant stenosis. LEFT ICA: No occlusion, significant stenosis or dissection. RIGHT VERTEBRAL ARTERY: No occlusion, significant stenosis or dissection. LEFT VERTEBRAL ARTERY: No occlusion, significant stenosis or dissection. NECK SOFT TISSUES: Unremarkable. --CTA HEAD: --Anterior circulation: ICAs: Atherosclerotic calcifications at the cavernous segments bilaterally with up to 50% luminal stenosis on the right and less than 50% on the left. ACAs: No significant stenosis at the visualized segments. ACOM: Present. MCAs: No significant stenosis at the visualized segments. --Posterior circulation: PCOMs: Nonvisualization bilaterally. 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 There is a 5 mm segment of 80-90% luminal stenosis at the proximal right posterior cerebral artery. BASILAR ARTERY: No significant stenosis. VERTEBRAL ARTERIES: Mildly calcified left vertebral artery without hemodynamically significant stenosis. Atherosclerotic calcifications and intraluminal thrombus at the intracranial segment of the right vertebral artery with approximately 70% luminal stenosis. No evidence of intracranial aneurysm or vascular malformation. CT/CTA Head AND Neck W/ Contrast IMPRESSION: Short segment high-grade stenosis at the proximal right posterior cerebral artery. Moderate stenosis of the intracranial segment of right vertebral artery. Electronically Signed: Alec Lee DO at 21:19 EDT ,
--- NOTE | 2022-09-16 22:09 | PCM.HP.STD ---
HPI - General General Date of Admission: 09/16/22 Date of Service: 09/16/22 Chief Complaint: Numbness and tingling of left side of lips. HPI Narrative ARI LEIGH, is a 61 M with a significant history of hypertension; diabetes mellitus and occasional cigar smoker who presented to emergency department with numbness and tingling of his left lip that started about 20 minutes before presentation. The numbness and tingling of his left lips is intermittent. Also patient felt lightheaded. His symptoms started while doing dishes. He heard a popping sound in his left knee. He reports that chronically he has left knee pain. Thereafter he was seen veering towards left side with ambulation. NIH assessment by ED doctor by stroke neurologist was 0. Patient was not deemed to be a candidate of tPA. CTA head and neck showed high-grade stenosis at the proximal right posterior cerebral artery. Moderate stenosis of the intracranial segment of the right artery. Emergency plan doctor discussed the case with stroke tele-neurologist at [facility], and vascular surgeon at [facility] and patient was deemed not to be a surgical candidate but rather a candidate of medical therapy. [facility] Medical History (Updated 09/17/22 @ 07:[address] Adam Real MD) Diabetes High cholesterol HTN (hypertension) Home Medications leucovorin calcium 5 mg tablet 5 mg PO QWEEK 09/16/22 [History Last Taken Unknown] methotrexate sodium 2.5 mg tablet 2.5 mg PO QWEEK 09/16/22 [History Last Taken Unknown] Allergy/AdvReac Type Severity Reaction Status Date / Time No Known Allergies Allergy Verified 09/16/22 19:31 Family History (Updated 09/16/22 @ 22:[address] Adam Real MD) Other CVA (cerebral vascular accident) Diabetes Surgical History no surgical history no surgical history Social History (Updated 09/16/22 @ 22:[address] Adam Real MD) Smoking Status: Current some day smoker tobacco type: cigars ROS ROS Narrative Pertinent positives and pertinent negatives as noted in HPI. All other systems were reviewed and are negative Vital Signs Vital Signs Vital Signs: 09/16/22 19:28 09/16/22 19:41 09/16/22 19:38 Temperature 97.5 F L Temperature Source Temporal Pulse Rate 86 88 83 Respiratory Rate 16 16 Blood Pressure 203/113 H 213/112 H Blood Pressure Mean 143 145 Pulse Ox 97 97 Oxygen Delivery Method Room Air 09/16/22 19:51 09/16/22 20:08 09/16/22 20:30 Temperature 97.9 F Temperature Source Oral Pulse Rate 85 87 87 Respiratory Rate 15 18 20 H Blood Pressure 200/93 H 184/93 H 164/100 H Blood Pressure Mean 128 123 121 Pulse Ox 93 92 97 Oxygen Delivery Method Room Air Room Air Room Air 09/16/22 21:00 09/16/22 21:30 Temperature Temperature Source Pulse Rate 86 77 Respiratory Rate 16 12 Blood Pressure 174/94 H 169/99 H Blood Pressure Mean 120 122 Pulse Ox 96 97 Oxygen Delivery Method Room Air Room Air Weight Weight: 99.79 kg Body Mass Index (BMI) 31.5 Physical Exam Narrative Physical exam: General: Well-nourished, well-developed. Head: Normocephalic, atraumatic, no tenderness Eyes: Vision is grossly intact. EOMI ENT, no trauma, moist mucous membranes, no rhinorrhea Neck: Nontender, No thyromegaly. CVS: Regular rate and rhythm. S1-S2 present. No murmur, gallop or rub. Respiratory : clear to auscultation bilaterally, chest wall nontender Abdomen: Soft, nontender, nondistended, normal bowel sounds, no masses : Deferred Back: Nontender, no CVA tenderness, no midline spinal tenderness, deformities, step-offs Extremities: Nontender full range of motion, no trauma Skin: Normal color, no trauma, abrasions Neuro: Alert, oriented, cranial nerves II through XII grossly intact. Psychiatry: Normal mood. Normal affect. Not depressed. Not anxious. Results Lab / Micro Data Result Diagrams: 09/17/22 05:45 09/17/22 05:45 Labs: Laboratory Results - last 24 hr 09/16/22 19:30: POC Glucose 250 H 09/16/22 19:40: WBC 6.4, RBC 4.93, Hgb 15.7, Hct 45.1, MCV 91.5, MCH 31.8, MCHC 34.8, RDW Std Deviation 44.8 H, RDW Coeff of Jason 13.4, Plt Count 185, MPV 10.3, Immature Gran % (Auto) 0.600, Neut % (Auto) 60.6, Lymph % (Auto) 27.8, [place] % (Auto) 7.5, Eos % (Auto) 3.0, Baso % (Auto) 0.5, Absolute Neuts (auto) 3.9, Absolute Lymphs (auto) 1.77, Nucleated RBC % 0 09/16/22 19:40: PT 12.6, INR 0.9, APTT 27.4 09/16/22 19:40: Sodium 139, Potassium 3.8, Chloride 107, Carbon Dioxide 26.0, Anion Gap 6, BUN 23 H, Creatinine 1.12, Estim Creat Clear Calc 69.70, Est GFR (MDRD) Af Amer 85, Est GFR (MDRD) Non-Af 70, BUN/Creatinine Ratio 20.5 H, Glucose 270 H, Calcium 10.2 H, Troponin I High Sens [address] 09/16/22 19:38 IMPRESSION: Negative Brain CT without contrast. Electronically Signed: Alec Lee DO at 19:54 EDT Reading Location ID and State: [facility] / [place] Tel [phone], Service support , ADDENDUM: 09/16/222001 IMPRESSION: Negative Brain CT without contrast. N.B. : The above Results were Read Back by Alec Lee DO to Jaicnda Chung MD, and understanding confirmed on 09/16/2022 19:55:16 (ET). Electronically Signed: Alec Lee DO at 19:54 EDT Reading Location ID and State: [facility] / [place] Tel [phone], Service support , ADDENDUM: 09/16/222007 IMPRESSION: Negative Brain CT without contrast. N.B. : The above Results were Read Back by Alec Lee DO to Jacinda Chung MD, and understanding confirmed on 09/16/2022 20:01:11 (ET). Electronically Signed: Alec Lee DO at 19:54 EDT Reading Location ID and State: [facility] / [place] Tel [phone], Service support , Chest X-Ray 09/16/22 19:55 IMPRESSION: No radiographic evidence of acute cardiopulmonary disease. Electronically Signed: Alec Lee DO at 20:43 EDT , Head/Neck CTA 09/16/22 20:45 IMPRESSION: Short segment high-grade stenosis at the proximal right posterior cerebral artery. Moderate stenosis of the intracranial segment of right vertebral artery. Electronically Signed: Alec Lee DO at 21:19 EDT , Assessment & Plan Assessment/Plan (1) Brain TIA: (2) High cholesterol: (3) Diabetes: (4) HTN (hypertension): PLAN: Plan Acute CVA Serial NINDS NIH Scale ordered Impression of head/neck CTA by radiology: Short segment high-grade stenosis at the proximal right posterior cerebral artery. Moderate stenosis of the intracranial segment of right vertebral artery. Upon my personal head CT image review: I agree with radiologist interpretation Lipid profile and A1c ordered. Physical therapy, and occupational therapy to work with patient. N.p.o. until bedside swallow eval. Daily aspirin and Plavix. High intensity statin Permissive hypertension. Control blood pressure with labetalol for systolic blood pressure of more than 220 or diastolic blood pressure of more than 120. MRI of head ordered Echocardiogram ordered. Hypertension Blood pressure is severely elevated. Consider as a permissive hypertension. Treatment and parameters as above. Trend blood pressures. Diabetes mellitus Patient with hyperglycemia on presentation Accu-Chek with correction scale insulin ordered. DVT prophylaxis: SCDs ordered. Charges/Coding Visit Charges Inpatient E&M: 18693 Init Hosp L3
--- NOTE | 2022-09-16 23:11 | ECHOCS_ITS ---
Reason For Study: TIA/CVA Procedure This was a 2D Doppler, Color Flow transthoracic echocardiogram. The study was technically difficult. Contrast injection was performed. Exam performed portable in patient room. Left Ventricle Normal size and thickness. The left ventricular ejection fraction is 60 %. Normal diastology for age. Right Ventricle Normal right ventricle. Atria The left and right atria are normal. Bubble contrast study is negative for PFO/ASD. Mitral Valve Trivial mitral valve insufficiency. Tricuspid Valve Trivial tricuspid valve insufficiency. Unable to estimate RV systolic pressure due to insufficient tricuspid regurgitant envelope. Aortic Valve Normal aortic valve. Pulmonic Valve The pulmonic valve is not well visualized. Great Vessels Normal sized aortic root. Pericardium/Pleural No pericardial effusion. Medication Diluted definity 2ml given slow IV push to enhance endocardial definition. Performed a rapid injection of agitated mix of 9 cc saline and 1cc air to assess for atrial septal defect. MMode/2D Measurements & Calculations Ao root diam: 3.6 cm LAV(MOD-bp): 57.3 ml LVAd ap4: 36.8 cm2 LAV(MOD-bp) Indexed: 26.5 ml/m2 LVLd ap4: 9.2 cm LAV(MOD-sp2): 41.9 ml EDV(MOD-sp4): 122.8 ml LAV(MOD-sp4): 60.2 ml EDV(sp4-el): 124.4 ml LVAs ap4: 20.0 cm2 LVLs ap4: 7.3 cm ESV(MOD-sp4): 47.0 ml ESV(sp4-el): 46.5 ml EF(MOD-sp4): 61.7 % EF(sp4-el): 62.6 % SV(MOD-sp4): 75.8 ml SV(sp4-el): 77.9 ml LA A4 area: 20.9 cm2 LA dimension(2D): 3.6 cm RA A4 area: 13.5 cm2 Time Measurements MV dec time: 0.26 sec Doppler Measurements & Calculations MV E max tyrone: 56.0 cm/sec Lat Peak E' [place]: 10.8 cm/sec Med Peak E' [place]: 6.0 cm/sec MV A max tyrone: 81.5 cm/sec E/E' lat: 5.2 E/E' med: 9.4 MV E/A: 0.69 MV V2 max: 86.7 cm/sec MV dec slope: 218.0 cm/sec2 Ao V2 max: 117.3 cm/sec MV max P.0 mmHg Ao max P.5 mmHg MV V2 mean: 50.7 cm/sec Ao V2 mean: 84.3 cm/sec MV mean P.2 mmHg Ao mean P.2 mmHg MV V2 VTI: 25.8 cm Ao V2 VTI: 25.0 cm AV (velocity ratio): 0.79 LV V1 max: 102.3 cm/sec PA V2 max: 80.7 cm/sec LV V1 max P.2 mmHg PA V2 mean: 60.4 cm/sec LV V1 mean P.2 mmHg LV V1 mean: 68.6 cm/sec LV V1 VTI: 19.8 ECHO/Echo Complete W/ Contrast Interpretation Summary The left ventricular ejection fraction is 60 %. Bubble contrast study is negative for PFO/ASD. Ordering Physician: Adam Real Referring Physician: Juan Polanco MD Performed By: Bebe Tabares RCS
[2022-09-17 00:12] VITALS: BMI 31.2
[2022-09-17 01:24] VITALS: O2SAT 100
[2022-09-17] MEDS: Acetaminophen 325 MG Tablet 650 MG PO (02:29)
[2022-09-17 02:30] VITALS: BP 171/103; PULSE 75; RESP 18; TEMP 36.7; O2SAT 98
[2022-09-17 05:45] VITALS: BP 185/98; PULSE 78; RESP 18; TEMP 36.8; O2SAT 97
[2022-09-17 06:08] LABS: Absolute Lymphocyte Count 1.17 X10^3/uL (0.83-4.51); Absolute Neutrophil Count 4.8 X10^3/uL (2.0-7.7); Basophil# 0.04 X10^3/uL; Basophil% 0.6 % (0-1); Eosinophil# 0.21 X10^3/uL; Eosinophils% 3.2 % (0-5); Hematocrit 41.4 % (40-54); Hemoglobin 14.4 g/dL (13.0-16.5); Lymphocyte # 1.17 X10^3/ul (0.83-4.51); Lymphocyte % 17.6 % (19-41); Mean Corp Hgb Conc 34.8 g/dL (32-36); Mean Corpuscular Hgb 31.8 pg (27.0-32.0); Mean Corpuscular Volume 91.4 fL (80-94); Mean Platelet Vol. 10.3 fl (6.2-12.0); Monocyte# 0.34 X10^3/uL; Monocyte% 5.1 % (0-10); NRBC Flagged by Analyzer 0 % (0-5); Neutrophil # 4.81 X10^3/uL (2.7-7.7); Neutrophil % 72.6 % (47-70); Platelet Count 170 K/mm3 (150-450); RBC Distribution Width CV 13.2 % (11.6-14.6); RBC Distribution Width SD 43.7 fl (35.1-43.9); Red Blood Count 4.53 M/mm3 (4.6-6.2); White Blood Count 6.6 K/mm3 (4.4-11.0)
[2022-09-17 06:50] LABS: Anion Gap 6 (5-15); BUN 20 mg/dL (7-18); BUN/Creat Ratio 18.9 RATIO (10-20); Calcium,Total 9.3 mg/dL (8.5-10.1); Chloride 106 mmol/L (98-107); Cholesterol 171 mg/dL (200); Creatinine, Serum 1.06 mg/dL (0.70-1.30); EST Glomerular Filtration Rate 75 mL/min (>60); Est Glom Filt Rate - Afr Amer 91 mL/min (>60); Estimated Creatinine Clearance 73.65 ml/min; Glucose 261 mg/dL (74-106); High Density Lipoprotein 39 mg/dL; Potassium 3.7 mmol/L (3.5-5.1); Sodium Level 137 mmol/L (136-145); Triglycerides 228 mg/dL; Very Low Density Lipoprotein 46 mg/dL (5-40)
[2022-09-17 07:14] VITALS: O2SAT 96
[2022-09-17] MEDS: Aspirin 81 MG TAB.CHEW PO (08:53)
[2022-09-17 08:55] VITALS: BP 177/95; PULSE 88; RESP 16; TEMP 36.7; O2SAT 97
[2022-09-17 09:21] LABS: Bedside Glucose 241 mg/dL (74-106)
--- NOTE | 2022-09-17 09:30 | MRI_ITS ---
HISTORY: Acute CVA, left facial droop, left vision loss, and dizziness. TECHNIQUE: Multiplanar and multisequence MR images of the brain were obtained without contrast. 279 images. COMPARISON: CT prior day. FINDINGS: BRAIN PARENCHYMA: Very mild periventricular white matter changes. No abnormal focus of restricted diffusion. No acute intracranial hemorrhage identified. CSF SPACES: Mild generalized volume loss. No significant midline shift or other mass effect.No extra-axial fluid collection. VASCULAR SYSTEM: Major intracranial flow voids are maintained. PARANASAL SINUSES AND MASTOID AIR CELLS: Mild bubbly fluid in the right frontal sinus again seen. Small right maxillary sinus mucous retention cyst. Trace fluid in the left mastoid air cells. ORBITS: Symmetric contents. MRI/Brain without Contrast IMPRESSION: No evidence for acute infarct. Mild chronic involutional and white matter changes. Electronically Signed: Cyn Lee MD at 10:58 EDT ,
--- NOTE | 2022-09-17 10:15 | PN.HOSP_ITS ---
Reason for Visit Reason for Visit: Diagnoses Type 2 diabetes mellitus without complications (09/16/22) Pure hypercholesterolemia, unspecified (09/16/22) Transient cerebral ischemic attack, unspecified (09/16/22) Essential (primary) hypertension (09/16/22) Subjective Subjective Patient sitting up in bed, finishing breakfast. Observed NIHSS performed w/bedside RN. He denies concerns or questions at this time. States that he feels fine, just has a tingling to his top lip and left fingertips. Objective Data Objective Data Vital Signs: Vital Signs Temp Pulse Resp BP Pulse Ox O2 Del Method 98.1 F 88 16 177/95 H 97 Room Air 09/17/22 08:55 09/17/22 08:55 09/17/22 08:55 09/17/22 08:55 09/17/22 08:55 09/17/22 09:17 Oxygen Delivery Method Room Air Weight: 98.8 kg Body Mass Index (BMI) 31.2 Lab / Micro Data Result Diagrams: 09/17/22 05:45 09/17/22 05:45 Labs: Laboratory Results - last 24 hr 09/16/22 19:30: POC Glucose 250 H 09/16/22 19:40: WBC 6.4, RBC 4.93, Hgb 15.7, Hct 45.1, MCV 91.5, MCH 31.8, MCHC 34.8, RDW Std Deviation 44.8 H, RDW Coeff of Jason 13.4, Plt Count 185, MPV 10.3, Immature Gran % (Auto) 0.600, Neut % (Auto) 60.6, Lymph % (Auto) 27.8, [place] % (Auto) 7.5, Eos % (Auto) 3.0, Baso % (Auto) 0.5, Absolute Neuts (auto) 3.9, Absolute Lymphs (auto) 1.77, Nucleated RBC % 0 09/16/22 19:40: PT 12.6, INR 0.9, APTT 27.4 09/16/22 19:40: Sodium 139, Potassium 3.8, Chloride 107, Carbon Dioxide 26.0, Anion Gap 6, BUN 23 H, Creatinine 1.12, Estim Creat Clear Calc 69.70, Est GFR (MDRD) Af Amer 85, Est GFR (MDRD) Non-Af 70, BUN/Creatinine Ratio 20.5 H, Glucose 270 H, Calcium 10.2 H, Troponin I High Sens 6 09/17/22 05:45: WBC 6.6, RBC 4.53 L, Hgb 14.4, Hct 41.4, MCV 91.4, MCH 31.8, MCHC 34.8, RDW Std Deviation 43.7, RDW Coeff of Jason 13.2, Plt Count 170, MPV 10.3, Immature Gran % (Auto) 0.900, Neut % (Auto) 72.6 H, Lymph % (Auto) 17.6 L, [place] % (Auto) 5.1, Eos % (Auto) 3.2, Baso % (Auto) 0.6, Absolute Neuts (auto) 4.8, Absolute Lymphs (auto) 1.17, Nucleated RBC % 0 09/17/22 05:45: Sodium 137, Potassium 3.7, Chloride 106, Carbon Dioxide 25.0, Anion Gap 6, BUN 20 H, Creatinine 1.06, Estim Creat Clear Calc 73.65, Est GFR (MDRD) Af Amer 91, Est GFR (MDRD) Non-Af 75, BUN/Creatinine Ratio 18.9, Glucose 261 H, Calcium 9.3, Triglycerides 228 H, Cholesterol 171, LDL Cholesterol 86, VLDL Cholesterol 46 H, HDL Cholesterol 39 L 09/17/22 08:52: POC Glucose 241 H Radiography Diagnostic Testing: Radiology Impression Brain CT 09/16/22 19:38 IMPRESSION: Negative Brain CT without contrast. Electronically Signed: Alec Lee DO at 19:54 EDT Reading Location ID and State: [facility] / [place] Tel [phone], Service support , ADDENDUM: 09/16/222001 IMPRESSION: Negative Brain CT without contrast. N.B. : The above Results were Read Back by Alec Lee DO to Jacinda Chung MD, and understanding confirmed on 09/16/2022 19:55:16 (ET). Electronically Signed: Alec Lee DO at 19:54 EDT , ADDENDUM: 09/16/222007 IMPRESSION: Negative Brain CT without contrast. N.B. : The above Results were Read Back by Alec Lee DO to Jacinda Chung MD, and understanding confirmed on 09/16/2022 20:01:11 (ET). Electronically Signed: Alec Lee DO at 19:54 EDT , Chest X-Ray 09/16/22 19:55 IMPRESSION: No radiographic evidence of acute cardiopulmonary disease. Electronically Signed: Alec Lee DO at 20:43 EDT , Head/Neck CTA 09/16/22 20:45 IMPRESSION: Short segment high-grade stenosis at the proximal right posterior cerebral artery. Moderate stenosis of the intracranial segment of right vertebral artery. Electronically Signed: Alec Lee DO at 21:19 EDT , NIHSS NIHSS 1a. Level of Consciousness: Alert; keenly responsive 1b. LOC Questions: Answers BOTH questions correctly. 1c. LOC Commands: Performs both tasks correctly. 2. Best Gaze: Normal 3. Visual: No visual loss 4. Facial Palsy: Normal symmetrical movements 5a. Left Arm: No drift; arm holds 90 (or 45) degrees for full 10 seconds 5b. Right Arm: No drift; arm holds 90 (or 45) degrees for full 10 seconds 6a. Left Leg: No drift; leg holds 30-degree position for full 5 seconds 6b. Right Leg: No drift; leg holds 30-degree position for full 5 seconds 7. Limb Ataxia: Absent 8. Sensory: Normal; no sensory loss 9. Best Language: No aphasia; normal 10. Dysarthria: Normal 11. Extinction and Inattention: No abnormality Total: 0 Physical Exam Const alert, oriented x3, no apparent distress and healthy appearing HEENT head/scalp atraumatic and moist oral mucous membranes Eyes PERRL, EOMs intact bilaterally and conjunctivae normal Neck supple and no JVD Resp normal respiratory effort, no retractions, no use of accessory muscles and clear to auscultation bilaterally Cardio regular rate, regular rhythm, S1 normal heart sound, S2 normal heart sound, no murmurs, no rub, no gallops and no clicks GI normal to inspection, nondistended, normoactive bowel sounds, soft to palpation and non-tender Extremity normal to inspection, full ROM and no clubbing, cyanosis or edema Neuro CN's II-XII intact bilaterally, moves all extremities, no focal motor deficits and no sensory deficits noted Neuro Narrative: Only mild complaints of tingling, no numbness to upper left side of lip and left fingertips. No loss of sensation. Motor Exam: strength 5/5 throughout Psych affect normal Assessment & Plan Assessment/Plan (1) HTN (hypertension): (2) Brain TIA: (3) High cholesterol: (4) Diabetes: PLAN: Plan 1. Brain TIA * 05/01/22: Blood Flow Screening completed as outpatient; normal carotid artery screening, normal aortic ultrasound, normal ankle/brachial index. * no complaints of ALBARADO, occasional dizziness upon position changes, no balance issues, gait steady. * 09/17 Brain MRI pending 2. HTN * known history of, pt not willing to take medicine to control it prior to this hospitalization; counseled importance of maintaining BP control to lessen increasing stenosis of arteries and general health complications. 3. HLD/DM II * started atorvastatin, counseled diet modification and limited fat intake to reduce likelihood of increasing plaque formation to carotid arteries. Pt, and family, educated on plaque formation narrowing carotid arteries and being a source of clotting material that could obstruct the blood supply to the brain and cause a stroke. * counseled monitoring carbohydrate intake, pt states he really does not want to take any additional medicines. Encouraged pt * 4. Rheumatoid arthritis * continue home regimen of weekly methotrexate and leucovorin, takes on Sundays. Maintain monitoring appointments for serum levels of drugs, CBC, BUN/Cr, and LFTs per PCP. DVT: SCDs
[2022-09-17 11:00] LABS: Bedside Glucose 286 mg/dL (74-106)
[2022-09-17 11:34] LABS: Hemoglobin A1c 9.8 % (3.8-5.6)
--- NOTE | 2022-09-17 12:32 | DCINST_ITS ---
Discharge Instructions Diet Discharge Diet: Low fat / Low cholesterol Activity Discharge Activity: Return to Normal Activity Dressing / Incision Call your doctor if you observe: Fever of 101 or Higher, Shortness of breath, Dizziness, Fainting spells, Swelling in the ankles, Chest pain and Increased palpitations (irregular heartbeat) Follow Up Care Test Results: Test results from this visit will be discussed in further detail at your follow- up appointment, if applicable. Discharge Plan Admission Admit Date/Time: 09/16/22 22:09 Attending Provider: Aaron Hdez Primary Care Provider: Juan Polanco Consulting Providers: Adam Real Discharge Orders/Prescriptions Prescriptions: New atorvastatin 80 mg Tablet 80 mg PO QHS 30 Days Qty: 30 0RF aspirin 81 mg Tablet,Chewable 81 mg PO BREAKFAST 30 Days Qty: 30 0RF amlodipine [Norvasc] 10 mg tablet 10 mg PO DAILY Qty: 30 0RF Continued methotrexate sodium 2.5 mg tablet 2.5 mg PO QWEEK Rx Instructions: FRIDAY leucovorin calcium 5 mg tablet 5 mg PO QWEEK Rx Instructions: FRIDAY Referrals / Follow Up: Juan Polanco MD [Primary Care Provider] - Within 1 Week Disposition Disposition (needs filled in before D/C Order can be placed): Home, Self Care
--- NOTE | 2022-09-17 12:34 | PCM.DC.SUM ---
Providers Date of Admission: 09/16/22 Primary Care Physician: Dr. Juan Polanco MD Reason For Visit: ACUTE CVA Diagnosis Discharge Diagnosis (1) HTN (hypertension): Status: Chronic Code(s): I10 - Essential (primary) hypertension (2) Brain TIA: Status: Acute Code(s): G45.9 - Transient cerebral ischemic attack, unspecified (3) High cholesterol: Status: Acute Code(s): E78.00 - Pure hypercholesterolemia, unspecified (4) Diabetes: Status: Acute Code(s): E11.9 - Type 2 diabetes mellitus without complications Medications at Discharge Home Medications leucovorin calcium 5 mg tablet 5 mg PO QWEEK 09/16/22 methotrexate sodium 2.5 mg tablet 2.5 mg PO QWEEK 09/16/22 amlodipine 10 mg tablet (Norvasc) 10 mg PO DAILY #30 tabs 09/17/22 aspirin 81 mg chewable tablet 81 mg PO BREAKFAST 30 days #30 tabs 09/17/22 atorvastatin 80 mg tablet 80 mg PO QHS 30 days #30 tabs 09/17/22 Hospital Course Operations None Procedures 2-D Echocardiogram Summary of Care Provided Minutes Spent on Discharge: 36 Hospital Course: Per HPI: ARI LEIGH, is a 61 M with a significant history of hypertension; diabetes mellitus and occasional cigar smoker who presented to emergency department with numbness and tingling of his left lip that started about 20 minutes before presentation.? The numbness and tingling of his left lips is intermittent.? Also patient felt lightheaded.? His symptoms started while doing dishes.? He heard a popping sound in his left knee.? He reports that chronically he has left knee pain.? Thereafter he was seen veering towards left side with ambulation.? NIH assessment by ED doctor by stroke neurologist was 0.? Patient was not deemed to be a candidate of tPA. CTA head and neck showed high-grade stenosis at the proximal right posterior cerebral artery.? Moderate stenosis of the intracranial segment of the right artery.? Emergency plan doctor discussed the case with stroke tele-neurologist at [facility], and vascular surgeon at [facility] and patient was deemed? not to be a surgical candidate but rather a candidate of medical therapy. Hospital Course: 1. TIA/HTN/HLD?61-year-old male presents to the hospital with signs and symptoms consistent of a TIA versus CVA. CTA of the head and neck showed posterior blood vessel stenosis however vascular surgery was contacted and felt that he was not a surgical candidate and recommended medical management. He was supposed to be on blood pressure as well as cholesterol medications as an outpatient however he never got refills. MRI of his brain was negative for any acute infarct, and echo was unremarkable. Most of his symptoms have resolved, he still has some numbness in his fingertips as well as his left lip. I discussed with him and his family the plan for possible discharge today and they both expressed understanding of the risk benefits going home and would like to go home today. We will continue with his home rheumatoid arthritis medications as well as adding Lipitor, aspirin, and Norvasc. I recommended he follow-up with his PCP in 3 to 5 days to monitor his blood pressure and make any medication additions necessary. 2. Rheumatoid arthritis?I discussed with him that coronary artery disease is a risk with rheumatoid arthritis and so he does need to continue these medications indefinitely. Prior to admission he did notice that his left knee popped and he does have a little bit of a joint effusion however he does have an appointment with rheumatology at the [facility], I discussed with him the need to contact his mechanical operator for possible steroid injection or adjustment on medications. He denies any significant pain in his left knee and mobility is intact. Physical Exam Narrative General: Alert, Oriented x3, Cooperative, No apparent distress HEENT: Atraumatic, PERRLA, EOMI, Normocephalic Oral: Moist Mucosa Neck: Supple, No JVD Lungs: Clear to auscultation, Normal air movement, No rhonchi, No wheeze, No rales Cardiovascular: Regular rate, Regular Rhythm, Normal S1, Normal S2, No murmurs Abdomen: Soft, Non Tender, Non-Distended, No Hepato-splenomegaly Extremities: No edema, Capillary Refill Less than 3 Seconds Skin: No rashes, No breakdown Musculoskeletal: No Tenderness to Palpation of Joints or Extremities Neurological: Cranial nerves II-XII grossly intact, Motor Exam 5/5 strength throughout, Sensory exam intact to light touch and pain Psych/Mental Status: Normal Affect, Appropriate Weight / BMI Weight Weight: 217 lb 13.067 oz Body Mass Index (BMI) 31.2 ABG / Lab / Microbiology Data Result Diagrams: 09/17/22 05:45 09/17/22 05:45 Laboratory: Laboratory Results - last 24 hr 09/16/22 19:30: POC Glucose 250 H 09/16/22 19:40: WBC 6.4, RBC 4.93, Hgb 15.7, Hct 45.1, MCV 91.5, MCH 31.8, MCHC 34.8, RDW Std Deviation 44.8 H, RDW Coeff of Jason 13.4, Plt Count 185, MPV 10.3, Immature Gran % (Auto) 0.600, Neut % (Auto) 60.6, Lymph % (Auto) 27.8, Harding % (Auto) 7.5, Eos % (Auto) 3.0, Baso % (Auto) 0.5, Absolute Neuts (auto) 3.9, Absolute Lymphs (auto) 1.77, Nucleated RBC % 0 09/16/22 19:40: PT 12.6, INR 0.9, APTT 27.4 09/16/22 19:40: Sodium 139, Potassium 3.8, Chloride 107, Carbon Dioxide 26.0, Anion Gap 6, BUN 23 H, Creatinine 1.12, Estim Creat Clear Calc 69.70, Est GFR (MDRD) Af Amer 85, Est GFR (MDRD) Non-Af 70, BUN/Creatinine Ratio 20.5 H, Glucose 270 H, Calcium 10.2 H, Troponin I High Sens 6 09/17/22 05:45: WBC 6.6, RBC 4.53 L, Hgb 14.4, Hct 41.4, MCV 91.4, MCH 31.8, MCHC 34.8, RDW Std Deviation 43.7, RDW Coeff of Jason 13.2, Plt Count 170, MPV 10.3, Immature Gran % (Auto) 0.900, Neut % (Auto) 72.6 H, Lymph % (Auto) 17.6 L, Harding % (Auto) 5.1, Eos % (Auto) 3.2, Baso % (Auto) 0.6, Absolute Neuts (auto) 4.8, Absolute Lymphs (auto) 1.17, Nucleated RBC % 0 09/17/22 05:45: Sodium 137, Potassium 3.7, Chloride 106, Carbon Dioxide 25.0, Anion Gap 6, BUN 20 H, Creatinine 1.06, Estim Creat Clear Calc 73.65, Est GFR (MDRD) Af Amer 91, Est GFR (MDRD) Non-Af 75, BUN/Creatinine Ratio 18.9, Glucose 261 H, Calcium 9.3, Triglycerides 228 H, Cholesterol 171, LDL Cholesterol 86, VLDL Cholesterol 46 H, HDL Cholesterol 39 L 09/17/22 05:45: Hemoglobin A1c 9.8 H 09/17/22 08:52: POC Glucose 241 H 09/17/22 10:40: POC Glucose 286 H Radiography Diagnostic Testing: Radiology Impression Brain CT 09/16/22 19:38 IMPRESSION: Negative Brain CT without contrast. Electronically Signed: Alec Lee DO at 19:54 EDT , ADDENDUM: 09/16/222001 IMPRESSION: Negative Brain CT without contrast. N.B. : The above Results were Read Back by Alec Lee DO to Jacinda Chung MD, and understanding confirmed on 09/16/2022 19:55:16 (ET). Electronically Signed: Alec Lee DO at 19:54 EDT , ADDENDUM: 09/16/222007 IMPRESSION: Negative Brain CT without contrast. N.B. : The above Results were Read Back by Alec Lee DO to Jacinda Chung MD, and understanding confirmed on 09/16/2022 20:01:11 (ET). Electronically Signed: Alec Lee DO at 19:54 EDT , Chest X-Ray 09/16/22 19:55 IMPRESSION: No radiographic evidence of acute cardiopulmonary disease. Electronically Signed: Alec Lee DO at 20:43 EDT , Head/Neck CTA 09/16/22 20:45 IMPRESSION: Short segment high-grade stenosis at the proximal right posterior cerebral artery. Moderate stenosis of the intracranial segment of right vertebral artery. Electronically Signed: Alec DO Jesus at 21:19 EDT , Echocardiogram 09/16/22 23:11 Interpretation Summary The left ventricular ejection fraction is 60 %. Bubble contrast study is negative for PFO/ASD. Ordering Physician: Adam Real Referring Physician: Juan Polanco MD Performed By: Bebe Tabares RCS Brain MRI 09/17/22 09:30 IMPRESSION: No evidence for acute infarct. Mild chronic involutional and white matter changes. Electronically Signed: Cyn Lee MD at 10:58 EDT , D/C Instructions Discharge Diet: Low fat / Low cholesterol Call your doctor if you observe: Fever of 101 or Higher, Shortness of breath, Dizziness, Fainting spells, Swelling in the ankles, Chest pain and Increased palpitations (irregular heartbeat) Meaningful Use Info Meaningful Use Diagnoses (Choose all that apply): None applicable Discharge Plan Admission Admit Date/Time: 09/16/22 22:09 Attending Provider: Aaron Hdez Primary Care Provider: Juan Polanco Consulting Providers: Adam Real Discharge Orders/Prescriptions Prescriptions: New atorvastatin 80 mg Tablet 80 mg PO QHS 30 Days Qty: 30 0RF aspirin 81 mg Tablet,Chewable 81 mg PO BREAKFAST 30 Days Qty: 30 0RF amlodipine [Norvasc] 10 mg tablet 10 mg PO DAILY Qty: 30 0RF Continued methotrexate sodium 2.5 mg tablet 2.5 mg PO QWEEK Rx Instructions: FRIDAY leucovorin calcium 5 mg tablet 5 mg PO QWEEK Rx Instructions: FRIDAY Referrals / Follow Up: Juan Polanco MD [Primary Care Provider] - Within 1 Week Disposition Disposition (needs filled in before D/C Order can be placed): Home, Self Care Charges/Coding Visit Charges Inpatient E&M: 62968 Disch Hosp >30min
[2022-09-17 13:34] VITALS: BMI 31.2
[2022-09-17 13:46] VITALS: BP 168/100; PULSE 68; RESP 16; TEMP 36.9; O2SAT 98
--- NOTE | 2022-09-17 14:31 | PHA.DC.MC ---
Pharmacy Service has performed discharge medication reconciliation and counseling for this patient. 1. ATORVASTATIN 80MG PO QHS 2. ASPIRIN 81MG PO QHS 3. AMLODIPINE 10MG PO DAILY The patient's discharge medication list was reviewed for discrepancies and discrepancies were resolved. Home Medications leucovorin calcium 5 mg tablet 5 mg PO QWEEK 09/16/22 methotrexate sodium 2.5 mg tablet 2.5 mg PO QWEEK 09/16/22 amlodipine 10 mg tablet (Norvasc) 10 mg PO DAILY #30 tabs 09/17/22 aspirin 81 mg chewable tablet 81 mg PO BREAKFAST 30 days #30 tabs 09/17/22 atorvastatin 80 mg tablet 80 mg PO QHS 30 days #30 tabs 09/17/22 The patient was counseled on the following discharge medications and changes in medications for homegoing were reviewed. The Reason for Use, instructions for use, and potential side effects were reviewed for all new medications. The patient's questions regarding all of their medications were answered. The patient was able to verbally demonstrate an understanding of their discharge medications. Patient counseled by pharmacy innovation assistantJs.
[2022-09-17] MEDS: amLODIPine 10 MG Tablet PO (14:46)
== END 2022-09-17 12:34 | disposition home or self-care (01) ==
LOC: ED 22:06 → PCU 23:55
PROVIDERS: Admitting Provider Hospitalist; Emergency Provider Emergency Medicine; PCP Family Medicine; Visit Provider Family Medicine
DX: G45.9 Transient cerebral ischemic attack, unspecified (principal); M06.9 Rheumatoid arthritis, unspecified; E11.9 Type 2 diabetes mellitus without complications; I10 Essential (primary) hypertension; E78.00 Pure hypercholesterolemia, unspecified; R29.810 Facial weakness; R42 Dizziness and giddiness; H53.9 Unspecified visual disturbance; Z79.899 Other long term (current) drug therapy; F17.290 Nicotine dependence, other tobacco product, uncomplicated; R20.2 Paresthesia of skin
CPT/HCPCS: 36415; 70450; 70496; 70498; 70551; 71045; 80048; 80061; 82962; 83036; 84484; 85025; 85610; 85730; 93005; 93306; 94762; 97161; 97166; 99221; 99285; Q9957; Q9967; A4216; C8929; G0378

== ENCOUNTER 2022-09-18 11:20 | Emergency (ER) | payer OTHER, SELFPAY ==
[2022-09-18 11:21] VITALS: BP 172/102; PULSE 75; RESP 16; TEMP 36.3; O2SAT 97; BMI 30.8
[2022-09-18 11:33] VITALS: PULSE 78; RESP 14; O2SAT 96
[2022-09-18] MEDS: Metoclopramide 10 MG/2 ML Vial IV (12:31)
[2022-09-18] MEDS: DiphenhydrAMINE 50 MG/ML Syringe 25 MG IV (12:31)
--- NOTE | 2022-09-18 12:34 | EX.ED.DYSGE1 ---
HPI History of Present Illness Chief Complaint: Hypertension Narrative Narrative: 61-year-old male presenting with headache. He states he has a pressure in the right side of his head which has been there for a few days. Patient recently admitted to the hospital for strokelike symptoms. He had CT imaging done as well as an MRI. He continues to have pain. Apparently the patient had not been on his blood pressure medicines and had restarted them yesterday when he was discharged home. He is on amlodipine 10 mg. states she is trying to get him some relief and gave him Sudafed. She is also concerned because his blood pressure is still elevated. Patient denies any new or changing symptoms. He has had some intermittent tingling in his fingers which is not new on the left hand. He also states he has a visual deficit in the left visual field which has also been there for 3 days. Patient's called the primary care office to see what they can give him to relieve his headache pressure and they were told to come to the emergency room. The patient's states already has been in the hospital and had a stroke work-up and is started on his blood pressure medicines and she states they still make her come to the emergency room. Her primary care doctor was out of the office today. [facility] Medical History Diabetes High cholesterol HTN (hypertension) Home Medications leucovorin calcium 5 mg tablet 5 mg PO QWEEK 09/16/22 [History Last Taken Unknown] methotrexate sodium 2.5 mg tablet 2.5 mg PO QWEEK 09/16/22 [History Last Taken Unknown] amlodipine 10 mg tablet (Norvasc) 10 mg PO DAILY #30 tabs 09/17/22 [Rx Last Taken Unknown] aspirin 81 mg chewable tablet 81 mg PO BREAKFAST 30 days #30 tabs 09/17/22 [Rx Last Taken Unknown] atorvastatin 80 mg tablet 80 mg PO QHS 30 days #30 tabs 09/17/22 [Rx Last Taken Unknown] Allergy/AdvReac Type Severity Reaction Status Date / Time No Known Allergies Allergy Verified 09/18/22 11:24 Family History Other CVA (cerebral vascular accident) Diabetes Social History Smoking Status: Current some day smoker tobacco type: cigars ROS ROS ED Constitutional Constitutional ED: Denies chills or fever(s) Eyes Eyes: Denies change in vision or diplopia ENT ENT ED: Denies rhinorrhea or sore throat Cardiovascular Cardiovascular: Denies chest pain or palpitations Respiratory/Chest Respiratory/Chest: Denies cough or dyspnea Gastrointestinal Gastrointestinal: Denies abdominal pain, nausea or vomiting Genitourinary Genitourinary ED: Denies dysuria or hematuria Musculoskeletal Musculoskeletal: Denies arthralgias or back pain Neurologic Neurologic: Reports headache(s) and paresthesias LUE Psychiatric Psychiatric: Denies anxiety EXAM Physical Exam Const Vital Signs: 09/18/22 11:21 09/18/22 11:33 Temperature 97.4 F L Temperature Source Temporal Pulse Rate 75 78 Respiratory Rate 16 14 Blood Pressure 172/102 H Blood Pressure Mean 125 Pulse Ox 97 96 Oxygen Delivery Method Room Air Room Air Positive well nourished General Appearance ED: NAD HEENT Reports moist mucous membranes Eyes PERRL and EOMs intact bilaterally Resp normal respiratory effort Cardio regular rate and regular rhythm GI normal to inspection, nondistended, normoactive bowel sounds Neuro oriented x3 Sensorium / Orientation: alert Motor Exam: strength 5/5 throughout Skin no rashes or lesions noted MDM MDM MDM Narrative Medical decision making narrative: Patient presenting with pressure in his head. He also has had some tingling in his fingertips in the left hand. None of the symptoms are new. His blood pressure was 172/102 on arrival. When I saw him in the room was 176/99. When I trend his blood pressures this is about where its been since he has been hospitalized. There is no new changes in his blood pressure. Patient and his expressed frustration that they just want to follow-up and headache relief. IV line was established and I gave the patient Reglan and Benadryl to try to help with headache. I do not believe he needs blood work or imaging. I did speak with Dr. Palacios who is on-call for his PCP and after discussing this with her she felt that the patient could follow-up in office in the next 2 days before the weekend. She recommended keeping a blood pressure diary. I had a long discussion with the and the family about blood pressure control and help with slowly normalize over time. Discussed with them that he might have some fatigue over this timeframe especially since he was just discharged from the hospital. Impression: 1. Headache 2. Hypertension Lab Data Attestation: I reviewed the patient's lab results. Discharge Plan Triage Chief Complaint: Hypertension ED Provider: Aayush Delacruz Dx/Rx/DC Orders Prescriptions: No Action methotrexate sodium 2.5 mg tablet 2.5 mg PO QWEEK Rx Instructions: FRIDAY leucovorin calcium 5 mg tablet 5 mg PO QWEEK Rx Instructions: FRIDAY atorvastatin 80 mg Tablet 80 mg PO QHS 30 Days Qty: 30 0RF aspirin 81 mg Tablet,Chewable 81 mg PO BREAKFAST 30 Days Qty: 30 0RF amlodipine [Norvasc] 10 mg tablet 10 mg PO DAILY Qty: 30 0RF Primary Care Provider: Juan Polanco Referrals: Juan Polanco MD [Primary Care Provider] -
== END 2022-09-18 13:08 | disposition home or self-care (01) ==
PROVIDERS: Emergency Provider Student in an Organized Health Care Education/Training Program; PCP Family Medicine; Visit Provider Student in an Organized Health Care Education/Training Program
DX: R51.9 Headache, unspecified (principal); E11.9 Type 2 diabetes mellitus without complications; I10 Essential (primary) hypertension; E78.00 Pure hypercholesterolemia, unspecified; F17.290 Nicotine dependence, other tobacco product, uncomplicated; Z79.899 Other long term (current) drug therapy; Z79.82 Long term (current) use of aspirin
CPT/HCPCS: 96374; 96375; 99284; A4216

== ENCOUNTER 2022-09-20 09:41 | Outpatient (CLI) | payer OTHER, SELFPAY ==
[2022-09-20 10:33] LABS: Absolute Lymphocyte Count 1.44 X10^3/uL (0.83-4.51); Absolute Neutrophil Count 5.9 X10^3/uL (2.0-7.7); Basophil# 0.04 X10^3/uL; Basophil% 0.5 % (0-1); Eosinophil# 0.27 X10^3/uL; Eosinophils% 3.3 % (0-5); Hematocrit 49.9 % (40-54); Hemoglobin 16.7 g/dL (13.0-16.5); Lymphocyte # 1.44 X10^3/ul (0.83-4.51); Lymphocyte % 17.4 % (19-41); Mean Corp Hgb Conc 33.5 g/dL (32-36); Mean Corpuscular Hgb 31.7 pg (27.0-32.0); Mean Corpuscular Volume 94.7 fL (80-94); Mean Platelet Vol. 10.2 fl (6.2-12.0); Monocyte% 7.3 % (0-10); NRBC Flagged by Analyzer 0 % (0-5); Neutrophil # 5.85 X10^3/uL (2.7-7.7); Neutrophil % 70.7 % (47-70); Platelet Count 211 K/mm3 (150-450); RBC Distribution Width CV 13.4 % (11.6-14.6); RBC Distribution Width SD 45.2 fl (35.1-43.9); Red Blood Count 5.27 M/mm3 (4.6-6.2); White Blood Count 8.3 K/mm3 (4.4-11.0)
[2022-09-20 10:52] LABS: Erythrocyte Sedimentation Rate 20 mm/hr (0-20)
[2022-09-20 11:06] LABS: AST(SGOT) 18 U/L (15-37); Alanine Aminotransfer ALT/SGPT 41 U/L (16-61); Albumin, Serum 3.8 g/dL (3.2-5.0); Alkaline Phosphatase 125 U/L (45-117); Anion Gap 7 (5-15); BUN 20 mg/dL (7-18); CRP 6.01 mg/L (0.0-3.0); Calcium,Total 10.1 mg/dL (8.5-10.1); Chloride 103 mmol/L (98-107); Creatinine, Serum 1.25 mg/dL (0.70-1.30); EST Glomerular Filtration Rate 62 mL/min (>60); Est Glom Filt Rate - Afr Amer 75 mL/min (>60); Glucose 334 mg/dL (74-106); Potassium 4.4 mmol/L (3.5-5.1); Protein, Total 7.8 g/dL (6.4-8.2); Sodium Level 135 mmol/L (136-145); Thyroid Stim Hormone (TSH) 1.74 uIU/mL (0.358-3.74)
[2022-09-20 11:14] LABS: Syphilis Antibodies Non-reactive
[2022-09-20 11:15] LABS: Hemoglobin A1c 9.6 % (3.8-5.6)
[2022-09-23 14:08] LABS: Lyme Scn Total Ab w/Rflx Negative (Negative); PROEL- A/G Ratio 1.3 (0.7-1.7); PROEL- Albumin 3.9 g/dL (2.9-4.4); PROEL- Alpha-1 Globulin 0.2 g/dL (0.0-0.4); PROEL- Alpha-2 Globulin 0.8 g/dL (0.4-1.0); PROEL- Beta Globulin 1.3 g/dL (0.7-1.3); PROEL- Gamma Globulin 0.7 g/dL (0.4-1.8); PROEL- TOTAL PROTEIN 6.9 g/dL (6.0-8.5)
== END 2022-09-20 23:59 | disposition home or self-care (01) ==
LOC: MFPLAB 09:42
PROVIDERS: PCP Family Medicine; Visit Provider Family Medicine
DX: R53.81 Other malaise (principal); M06.9 Rheumatoid arthritis, unspecified; E11.8 Type 2 diabetes mellitus with unspecified complications; R06.9 Unspecified abnormalities of breathing
CPT/HCPCS: 36415; 80053; 83036; 84165; 84443; 85025; 85652; 86140; 86431; 86618; 86780

== ENCOUNTER 2022-09-21 07:57 | Emergency (ER) | payer OTHER, SELFPAY ==
[2022-09-21 07:58] VITALS: BP 140/90; PULSE 86; RESP 18; TEMP 36.6; O2SAT 94; BMI 30.6
--- NOTE | 2022-09-21 08:07 | ED.RN ---
PER DR. DOZIER, NO STROKE ALERT.
[2022-09-21 09:04] VITALS: BP 161/92; PULSE 85; RESP 12; O2SAT 96
--- NOTE | 2022-09-21 09:05 | CT_ITS ---
We are attempting to reach an attending provider to discuss findings. An addendum with communication details will be sent when the communication is complete. INDICATION: headache EXAMINATION: CT BRAIN - CT Head or Brain W/O Contrast Injection TECHNIQUE: Multiple axial images were obtained of the head without intravenous contrast. A radiation dose optimization technique was used for this scan. IV Contrast dosage and agent: None. RADIATION DOSAGE (If Supplied By Facility): CTDIvol = ( 44.99 ) mGy, DLP = ( 796.11 ) mGycm COMPARISON: Prior exam of 09/16/2022. FINDINGS: BRAIN PARENCHYMA: Newly developed patchy low-density areas in the right occipital lobe. Small low-density lesion in the right thalamus new since previous exam. No evidence of intracranial hemorrhage or subdural hematoma. Possible new low-density lesion in the left occipital lobe as well. Atherosclerotic calcifications of the cavernous internal carotid arteries. CSF SPACES: Appropriate for age. No hydrocephalus. Basal cisterns are patent. CALVARIUM, SKULL BASE, PARANASAL SINUSES AND MASTOID AIR CELLS: Clear. No discrete lytic or blastic abnormalities. ORBITS: Both globes, extraocular muscles, optic nerves and retrobulbar fat appear unremarkable. CT/Brain/Head without Contrast IMPRESSION: New hypodense lesions/acute infarct in the right occipital lobe and right thalamus and probably left occipital lobe. Further evaluation with MRI of the brain is recommended. Electronically Signed: Hayder Landon MD at 9:53 EDT ,
--- NOTE | 2022-09-21 09:41 | ED.RN ---
PER DR. DOZIER, PT HAD BASIC LABS COMPLETED BY PCP YESTERDAY, WE DO NO NEED TO REPEAT CBC AND CHEMISTRY.
--- NOTE | 2022-09-21 10:03 | EDS_ITS ---
HPI History of Present Illness Chief Complaint: Neuro S/Sx Narrative Narrative: 61-year-old male presenting to the ED for paresthesias in the right leg and right arm which have been fairly intermittent but persistent now. He states he has had some tingling in his fingers which went away and he had some perioral tingling that also went away. He went to ophthalmology today because he was recently admitted to the hospital for TIA and had some residual vision loss and it was determined by the ground control approach technician that he had a left-sided hemianopsia. He states that Dr. Ruiz said he definitely had a stroke. He called his PCP Dr. Juan Polanco who called in to talk to me about this and was wanting to get another MRI given the patient's new mild symptoms of numbness and tingling and the fact that with his hemianopsia he must of had a stroke. [facility] Medical History Diabetes High cholesterol HTN (hypertension) Home Medications leucovorin calcium 5 mg tablet 5 mg PO QWEEK 09/16/22 [History Last Taken Unknown] methotrexate sodium 2.5 mg tablet 2.5 mg PO QWEEK 09/16/22 [History Last Taken Unknown] amlodipine 10 mg tablet (Norvasc) 10 mg PO DAILY #30 tabs 09/17/22 [Rx Last Taken Unknown] aspirin 81 mg chewable tablet 81 mg PO BREAKFAST 30 days #30 tabs 09/17/22 [Rx Last Taken Unknown] atorvastatin 80 mg tablet 80 mg PO QHS 30 days #30 tabs 09/17/22 [Rx Last Taken Unknown] diphenhydramine HCl 25 mg capsule (Benadryl) 25 mg PO QHS #14 caps 09/18/22 [Rx Last Taken Unknown] metoclopramide HCl 10 mg tablet (Reglan) 10 mg PO Q6H PRN nausea and vomiting #14 tabs 09/18/22 [Rx Last Taken Unknown] doxycycline hyclate 100 mg tablet 100 mg PO BID 09/21/22 [History Last Taken Unknown] metformin 500 mg tablet 1,000 mg PO QHS 09/21/22 [History Last Taken Unknown] metformin 500 mg tablet 500 mg PO DAILY 09/21/22 [History Last Taken Unknown] ramipril 1.25 mg capsule 1.25 mg PO DAILY 09/21/22 [History Last Taken Unknown] Allergy/AdvReac Type Severity Reaction Status Date / Time No Known Allergies Allergy Verified 09/21/22 07:57 Family History Other CVA (cerebral vascular accident) Diabetes Social History Smoking Status: Current some day smoker tobacco type: cigars ROS ROS ED Constitutional Constitutional ED: Denies chills or fever(s) Eyes Eyes: Reports change in vision bilateral ENT ENT ED: Denies rhinorrhea Cardiovascular Cardiovascular: Denies chest pain or palpitations Respiratory/Chest Respiratory/Chest: Denies cough or dyspnea Gastrointestinal Gastrointestinal: Denies abdominal pain Genitourinary Genitourinary ED: Denies dysuria or hematuria Musculoskeletal Musculoskeletal: Denies arthralgias or back pain Neurologic Neurologic: Reports headache(s) and paresthesias LUE and LLE Psychiatric Psychiatric: Reports anxiety Endocrine Endocrinology: Denies polydipsia or polyphagia EXAM Physical Exam Const Vital Signs: 09/21/22 07:58 09/21/22 09:04 09/21/22 10:36 Temperature 97.9 F Temperature Source Oral Pulse Rate 86 85 87 Respiratory Rate 18 12 16 Blood Pressure 140/90 H 161/92 H 127/82 H Blood Pressure Mean 106 115 97 Pulse Ox 94 96 95 Oxygen Delivery Method Room Air Room Air Room Air 09/21/22 10:39 Temperature Temperature Source Pulse Rate 87 Respiratory Rate 16 Blood Pressure 127/82 H Blood Pressure Mean 97 Pulse Ox 95 Oxygen Delivery Method Positive well nourished General Appearance ED: NAD HEENT Reports moist mucous membranes atraumatic Eyes PERRL and EOMs intact bilaterally Eyes Narrative: Left-sided vision cuts in bilateral eyes Chest Wall inspection of chest normal Resp normal respiratory effort and clear to auscultation bilaterally Cardio no murmurs GI normal to inspection, nondistended, normoactive bowel sounds Neuro oriented x3 Sensorium / Orientation: alert Motor Exam: strength 5/5 throughout Psych mental status grossly normal Skin no wounds NIHSS NIHSS Initial: 1a Level of Consciousness: 0 1b LOC Questions (Score 2 if aphasic/stupor): 0 1c LOC Commands (Only score 1st attempt): 0 2 Best Gaze (If aphasic, use reflexive mvmts.): 0 3 Visual: 2 4 Facial Palsy: 0 5 Motor Arm Right (UN = amputation/fusion): 0 5 Motor Arm Left: 0 6 Motor Leg Right: 0 6 Motor Leg Left: 0 7 Limb ataxia (Only + if out of proportion): 0 8 Sensory (Aphasia/stupor=0 or 1, coma=2): 1 9 Best Language: 0 10 Dysarthria (mute, coma=2, intubated=UN): 0 11 Extinction and Inattention (only scored if +): 0 Total Score: 3 MDM MDM MDM Narrative Medical decision making narrative: Patient presents again with neurologic symptoms which are now progressing. He had a negative stroke work-up including CT brain, MRI, echocardiogram with bubble study. His blood pressures come down nicely as he has been on his amlodipine and it is now 140/90 today. He still having a mild headache but that has not changed. He does have a left hemianopsia. He does have decreased sensation in the left arm and left leg but otherwise his NIH stroke scale score is normal and with that he has a stroke scale score of 3. He is definitely outside the window for any sort of thrombolytics. He has been placed on aspirin, atorvastatin appropriately and amlodipine was to control his blood pressure. The daughter expressed to me that he might be having some absence seizures here and there and stares off for a few minutes then he does not recall them. Given this I discussed the patient with the hospitalist who stated that he would probably need a facility that has 24-hour EEG and neurology. I discussed the case with Dr. Camargo at [facility] she was the neurologist on-call and she was actually able to review the MRI and states that she sees a right-sided EDITING INTERN subocclusive clot. She speculates that it is probably complete now and she mitch mmended just getting a CT brain to make sure there is no intracranial hemorrhage and she would be happy to take the patient for further care. Patient had blood work yesterday including CBC and BMP which were unremarkable. Due to the confusion I obtained an ammonia level which was normal and a urinalysis. She requested that I give the patient 2000 mg of Keppra for seizure. The patient and family were informed of these findings. The patient was consented for transfer and they are amenable to transfer to [facility]. I spoke with the radiologist today regarding the CT brain and there are new hypodense lesions/acute infarcts in the right occipital lobe and the right thalamus and probably left occipital lobe. I discussed this with Dr. Camargo these findings. Discussed them with the family as well. Patient transferred in stable condition. Impression: 1. Right occipital stroke 2. Right thalamic stroke 3. Left occipital stroke Lab Data Attestation: I reviewed the patient's lab results. Labs: Laboratory Results - last 24 hr 09/21/22 09:00 Ammonia 20.0 Radiography Diagnostic Testing: Clinical Impression(s) from Imaging Studies Brain CT 09/21/22 09:05 IMPRESSION: New hypodense lesions/acute infarct in the right occipital lobe and right thalamus and probably left occipital lobe. Further evaluation with MRI of the brain is recommended. Electronically Signed: Hayder Landon MD at 9:53 EDT , ADDENDUM: 09/21/22 1009 IMPRESSION: New hypodense lesions/acute infarct in the right occipital lobe and right thalamus and probably left occipital lobe. Further evaluation with MRI of the brain is recommended. N.B. : The above Results were Read Back by Hayder Landon MD to Aayush Delacruz DO, and understanding confirmed on 09/21/2022 10:02:29 (ET). Electronically Signed: Hayder Landon MD at 9:53 EDT , Discharge Plan Triage Chief Complaint: Neuro S/Sx ED Provider: Aayush Delacruz Dx/Rx/DC Orders Prescriptions: No Action methotrexate sodium 2.5 mg tablet 2.5 mg PO QWEEK Rx Instructions: FRIDAY leucovorin calcium 5 mg tablet 5 mg PO QWEEK Rx Instructions: FRIDAY atorvastatin 80 mg Tablet 80 mg PO QHS 30 Days Qty: 30 0RF aspirin 81 mg Tablet,Chewable 81 mg PO BREAKFAST 30 Days Qty: 30 0RF amlodipine [Norvasc] 10 mg tablet 10 mg PO DAILY Qty: 30 0RF metoclopramide HCl [Reglan] 10 mg tablet 10 mg PO Q6H PRN (Reason: nausea and vomiting) Qty: 14 0RF diphenhydramine HCl [Benadryl] 25 mg capsule 25 mg PO QHS Qty: 14 0RF metformin 500 mg Tablet 500 mg PO DAILY metformin 500 mg Tablet 1,000 mg PO QHS doxycycline hyclate 100 mg tablet 100 mg PO BID ramipril 1.25 mg capsule 1.25 mg PO DAILY Primary Care Provider: Juan Polanco Referrals: Juan Polanco MD [Primary Care Provider] - Disposition Disposition: Acute Care Hospital Discharge Location: [facility] Discharge Date/Time: 09/21/22 10:37
[2022-09-21 10:36] VITALS: BP 127/82; PULSE 87; RESP 16; O2SAT 95
[2022-09-21 10:39] VITALS: BP 127/82; PULSE 87; RESP 16; O2SAT 95
[2022-09-24 15:08] LABS: KEPPRA (LEVETIRACETAM) <2.0 ug/mL (10.0-40.0)
== END 2022-09-21 10:37 | disposition short-term general hospital (02) ==
PROVIDERS: Emergency Provider Student in an Organized Health Care Education/Training Program; PCP Family Medicine; Visit Provider Student in an Organized Health Care Education/Training Program
DX: I63.9 Cerebral infarction, unspecified (principal); E11.9 Type 2 diabetes mellitus without complications; I10 Essential (primary) hypertension; E78.00 Pure hypercholesterolemia, unspecified; F17.290 Nicotine dependence, other tobacco product, uncomplicated; Z79.899 Other long term (current) drug therapy; Z79.82 Long term (current) use of aspirin; Z79.84 Long term (current) use of oral hypoglycemic drugs
CPT/HCPCS: 70450; 80177; 82140; 99284; A4216

== ENCOUNTER → 2022-10-02 | Outpatient (CLI) | payer OTHER, SELFPAY ==
--- NOTE | 2022-10-02 10:17 | ECHOD_ITS ---
Reason For Study: TIA Procedure This was a 2D Doppler, Color Flow transthoracic echocardiogram. Exam performed in department. Left Ventricle Normal LV size. The estimated ejection fraction is 65 %. No evidence for diastolic dysfunction. No regional wall motion abnormalities noted. Right Ventricle Normal RV size. Normal systolic function. Atria Normal left atrium. Normal right atrium. No doppler evidence for ASD. Mitral Valve There is mild mitral annular calcification. There is no mitral valve stenosis. No mitral valve insufficiency. Tricuspid Valve There is no tricuspid stenosis. Unable to estimate RV systolic pressure due to inadequate jet, pulmonary artery pressure probably normal. Aortic Valve Trisinus/trileaflet aortic valve. There is no aortic stenosis. No aortic valve insufficiency. Pulmonic Valve There is no pulmonic valvular stenosis. No pulmonic valve insufficiency. Great Vessels Normal aortic root. Pericardium/Pleural No pericardial effusion. MMode/2D Measurements & Calculations LVIDd: 4.1 cm IVSd: 1.7 cm LVOT diam: 2.1 cm LVIDs: 2.3 cm LVPWd: 1.1 cm LVOT area: 3.4 cm2 RVDd: 3.6 cm FS: 43.9 % Ao root diam: 4.4 cm LAV(MOD-bp): 21.3 ml LVAd ap4: 21.0 cm2 LAV(MOD-bp) Indexed: 9.9 ml/m2 LVLd ap4: 7.4 cm LAV(MOD-sp2): 23.6 ml EDV(MOD-sp4): 47.6 ml LAV(MOD-sp4): 19.0 ml EDV(sp4-el): 50.7 ml LVAs ap4: 13.1 cm2 LVLs ap4: 7.1 cm ESV(MOD-sp4): 20.9 ml ESV(sp4-el): 20.6 ml EF(MOD-sp4): 56.1 % EF(sp4-el): 59.5 % LVAd ap2: 29.2 cm2 SV(MOD-sp4): 26.7 ml SV(MOD-sp2): 54.0 ml LVLd ap2: 7.9 cm EDV(MOD-sp2): 85.7 ml EDV(sp2-el): 91.1 ml LVAs ap2: 16.5 cm2 LVLs ap2: 7.0 cm ESV(MOD-sp2): 31.8 ml ESV(sp2-el): 33.0 ml EF(MOD-sp2): 62.9 % SV(sp4-el): 30.2 ml LA dimension(2D): 3.2 cm LA A4 area: 10.3 cm2 RA A4 area: 11.3 cm2 TAPSE: 1.4 cm Time Measurements MV dec time: 0.25 sec Doppler Measurements & Calculations MV E max tyrone: 44.0 cm/sec Lat Peak E' Tyrone: 9.9 cm/sec Med Peak E' Tyrone: 5.0 cm/sec MV A max tyrone: 89.2 cm/sec E/E' lat: 4.5 E/E' med: 8.8 MV E/A: 0.49 Ao V2 max: 95.1 cm/sec LV V1 max: 78.4 cm/sec MV dec slope: 175.2 cm/sec2 Ao max P.6 mmHg LV V1 max P.5 mmHg Ao V2 mean: 68.7 cm/sec LV V1 mean P.5 mmHg Ao mean P.1 mmHg LV V1 mean: 58.1 cm/sec Ao V2 VTI: 16.5 cm LV V1 VTI: 12.6 cm AV (velocity ratio): 0.77 DAMIAN(I,D): 2.6 cm2 DAMIAN(V,D): 2.8 cm2 SV(LVOT): 42.8 ml PA V2 max: 85.3 cm/sec PA max PG (full): 1.7 mmHg ECHO/Echo Complete Interpretation Summary The estimated ejection fraction is 65 %. No evidence for diastolic dysfunction. Ordering Physician: DANIEL KIM Referring Physician: Juan Polanco MD Performed By: Ainsley Nixon RDCS
== END | disposition home or self-care (01) ==
PROVIDERS: PCP Family Medicine
DX: I63.9 Cerebral infarction, unspecified (principal)
CPT/HCPCS: 93306

== ENCOUNTER 2022-11-14 08:00 | Outpatient (RCR) | payer OTHER, SELFPAY ==
--- NOTE | 2022-10-03 08:37 | HP.OTEVAL_ITS ---
Patient's Visit Information Visit Information Visit Information: ARI LEIGH is a 61 year old M, referred to Occupational Therapy by DANIEL KIM, with a diagnosis of ischemic stroke. Date of Evaluation: 09/30/22 Occupational Therapist: Diamante Cheng Subjective Subjective: Patient arrived with his daughter and s/p stroke 09/16/22. Patient sustained a left and right occipital stroke and a right thalamic stroke. Patient was in and out of the ER at [place], then transferred to [facility] FridaySeptember 21 - and discharged home. Patient reoports still experiencing some numbness and tingling in L hand/fingers and weakness in the L side. 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 Prior to stroke pt indep /c driving, golfing on Wednesdays, poker on . He hopes to resume all of these activities. Patient has a follow-up with eye doctor end of September, then they are going to work toward drivers evaluation to resume driving depending on what eye doctor says. history of rheumatoid arthritis, using a cane right now for stability outside the home (not using it at home), previously had antalgic gait due to the arthritis. Also wears a neoprene L knee brace for arthritis mgmt. Denies headaches or pain. ADLs Comments: indep with ADL's, reports he stands to shower and did not have any difficulty ROM Shoulder: WNL Elbow: WNL Forearm: WNL Wrist: WNL ROM Comments: B UE ROM WNL Strength Shoulder: L flexion: 25.7/extension 38.8; R flexion: 26.8/extension 33.5 Elbow: L elbow flexion: 26.9/extension 25.1; R flexion 23.4/extension 24.6 Wrist: L wrist flexion: 21.6/extension 21.5; R flexion 21.6/ extension 25.4 Foreign Banknote Teller: R 102, 101, 100; L 102, 103, 95 Lateral Pinch: L 15, R 15 Tripod Pinch: R 16; L 14 Tip-to-Tip Pinch: R 8 L 8 Strength Comments: strength grossly equal and intact Edema Other: no edema noted or reported Sensation Sensation Comments: reports L hand/wrist numbness a little tingling in L fingertips reports slight numbness in L leg 2.44 level sensation B fingers according to monofilament testing, intact sensation Visual/Perceptual Skills Comments: left hemianopsia wears glasses all the time Cognitive Skills Follows Directions: Yes Short Term Memory Impaired: Yes Cognitive Comments: family and patient report some confusion - asks what day/time it is, asks if he needs to go to work using an apple watch as a supportive tool to assist with orientation of date/time decreased attention to prolonged tasks, yawning and family answering for patient often or redirecting him to answer. Patient appeared fatigued but they report since his d/c from the hospital he's been mostly sleeping/resting at home. Attention Attention: Fair Transfers Transfers: modified indep, reports feeling pretty steady on his feet. Pt's reports he will run into things at times at home due to the L hemianopsia but he hasn't shown any balance concerns. No LOB or falls. Nine Hole Peg Right: 26.9 Left: 33.7 Comments: tripod grasp and good control Quick DASH-Disab of Arm,Shoulder& Hand Quick DASH Score: 18.1800 Goals Goal:: Patient will improve overall activity tolerance and endurance with ability to participate in 20 minutes of functional activity/strengthening without needing rest break. Goal:: Patient will improve L hand dexterity/coordination with improvement in 9 hole peg test by 5 seconds by discharge. Goal:: Patient will complete visual saccades and/or visual tracking exercises with 90% acccuracy using compensatory techniques as needed (turning head). Goal:: Patient will improve cognitive endurance and working memory evidenced by ability to read or listen to and answer questions from a short story with 90% accuracy. Rehabilitation General Assessment: Patient presents with family after sustaining a stroke on 09/16/22 and receiving care at [facility] and then [facility]. Patient has been home for about 1 week and focusing on rest/recovery, reporting he's been sleeping most of the time. Based on OT evaluation, his biggest deficits are overall mental and physical endurance, vision, and cognitive function. He presents with L hemianopsia, some disorientaiton/confusion at times, and decre ased tolerance to activity. He would benefit from skilled OT services to improve these areas. Recommending 2x/week for 4 weeks. Rehabilitation Potential: Good Anticipated Interventions Anticipated Interventions: Strengthening, Fine Motor Coord/[place], Visual/Perceptual Skills and Cognitive Skills Visit Plan Frequency: 2x /Week Duration: 4 Weeks General Plan: 2x/week 30 min sessions for 4 weeks to improve strength, endurance, cognition, vision, and fine motor dexterity TEXT: Thank you for the opportunity to evaluate your patient. For Medicare and Medicare HMO plans, please review the plan of care and approve it. It will need to be FAXED BACK to us at [phone] for Medicare purposes. Please let me know if there are questions or concerns regarding this plan of care. Physician Signature: Date:
--- NOTE | 2022-10-07 08:55 | HP.PTEVAL_ITS ---
Patient's Visit Information Visit Information Visit Information: ARI LEIGH is a 61 year old M referred to Physical Therapy by DANIEL KIM with a diagnosis of CVA. Date of Evaluation: 10/07/22 Physical Therapist: Juan Canseco, DPT, OCS, CSCS Visit Plan Frequency: 3x /Week Duration: 4-6 Weeks Plan: 3x/week for 4 weeks for 1. L leg proprioception and SLS 2. overall body strength with machines to Gault when I 3. focus core and hip strength via HEP early on for L trendelnberg gait Lots of walking and steps for fatigue. Golf swing practice Subjective Subjective: and dtr present. I had a stroke 09/16 ...was very dizzy and vision impaired and blurry and high blood pressure and tingling in L hand and could not see L eye. Treated as TIA and released the next day. back to ER Friday with ALBARADO. Lost 50% vision R eye. Woke up with tingling L arm and back to the ER for third time. Sent to [facility] and had two strokes, spent two days At [facility]. Now sent for PT. I have OA in L knee and had pain prior. Seeing OT for shoulder. Family's biggest concern is fatigue, sleeps 3-4 hour increments at at time. No weakness in L hand. Has walked funny for long time due to L knee. Not worse since stroke. No falls. Balance feels OK now. Activitiy is limited though. 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 Fatigue is limiting factor now. Basic ADLs are done I. Spends day: sitting all day, walks to get mail, tries to walk, gets exhausted easily. has puzzle books an activity books. Plays cards. Went to [employer] and then to family birthday constitution party. No regular exercises but did golf on Wednesdays. None since. Hobbies : golf, drive [employer] which he cannot do, is a movie watcher. Pain L shoulder: Pain Intensity (Out of 10): 0 Pain Intensity Range: 0 and 1 L knee: Pain Intensity (Out of 10): 0 Pain Intensity Range: 0 and 8 Comment: no changes to this Objective Objective: L trenedelnberg gait is obvious when faitgued adn not using cane. Ambulates with cane 200 feet I today and without AD 200 feet I and for FGA. Trasnfers without UE I chair. Steps tends to use R due to L knee pain, some weakness in L side but I with rail. Strength tests L [id number] at ankle hip and knee but hips are both weak abd, extension and show er on contralateral side with flexion testing. Sensation In LE to gross light touch is symmetrical but proprioception worse on L with SLS 2 seconds vs 10+ on R. coordination to reciprocal toe tap is good and heel tap is slightly harder. Heel to cameron test is normal. Flexibility is tight in B HS and gastroc minimally. reflexes 1/3 L patella dn 2/3 R patella and 2/3 B achilles Fatiuges quickly qiht walking as he fees tired adn gets larger trendelenberg as he goes. No SOB, no other signs of fatigue. Balance/Special Test Scores Functional Gait Assessment Score: 27 % Disability: 10.0000 CATSIB Score (Max score 120 seconds): 120 Lower Extremity Functional Score: 35 Goals Goal 1:: Walk up and down street without faituge at home Goal Time Frame: 4-6 Weeks Goal 2:: I appropriate HEP for strength core, hips, body to Gault Goal Time Frame: 4-6 Weeks Goal 3:: Pt confident swiniging golf club Goal Time Frame: 4-6 Weeks Goal 4:: Ready to return to work Goal Time Frame: 4-6 Weeks Goal 5:: 55 LEFS Goal Time Frame: 4-6 Weeks Rehabilitation Potential Physical Therapy Diagnosis: s/p CVA with fatigue and some functional weakness Rehabilitation Potential: Good Anticipated Interventions Patient/Client Instruction: Educate patient on: Condition and Plan of Care For the Purpose of:: To increase ROM, To improve nutrient delivery to tissue, To improve muscle performance and motor function, To increase tolerance to activity/condition/position and To improve gait and locomotor functions Therapeutic Exercise to Include: Strength training, Balance training, Flexibilty training and Gait and locomotor training For the Purpose of:: To improve nutrient delivery to tissue, To improve muscle performance and motor function, To increase tolerance to activity/condition/position and To improve gait and locomotor functions Text: Thank you for the opportunity to evaluate your patient. For Medicare and Medicare HMO plans, please review the plan of care and approve it. It will need to be FAXED BACK to us at [phone] for Medicare purposes. For Medicare only, by signing this I certify the plan of care. Please let me know if there are questions or concerns regarding this plan of care. Physician Signature: Date:
--- NOTE | 2022-10-09 10:42 | HP.SP.EV_ITS ---
History History Date of Eval: 10/02/22 Attending Doctor: DANIEL KIM Referring Doctor: DANIEL KIM Reason for Referral: ISCHEMIC STROKE Medical Diagnosis (from RX): CVA Date of Onset of Diagnosis: September 16, 2022 Previous speech therapy: No Other Relevant Medical History/Diagnoses/Surgery: Rheumatoid arthritis, Diabetes Smoking Status: Current some day smoker Hx Tobacco Use: Yes Pain Is pain an issue with your current prescribed condition?: No Personal Preferred language: Latvian Patient Allergies Allergies Allergies: Allergies No Known Allergies Allergy (Verified 09/21/22 07:57) * Pediatric & Adult patients Adult Objective Cog/Ling/Com Test Administered Lojoosivg-Jxumkjlidq-Kfdepcxmqztzw Assessment Administered: Yes Molyuzkpe-Pydjvwgjvy-Aizsxycxrctxg Assessment: Cognitive ? Linguistic skills were evaluated using patient/family interview, skilled observation and informal evaluation through tasks completed by the patient. Orientation Orientation: Person, Place, Birthdate and Medical Diagnosis Answer Yes/No Questions Simple: WNL Complex: WNL Follows Commands Complex: WNL Conversational Tasks Comments: No word finding deficits noted during conversation. Recall Percent recall of paragraph information (y/n questions): 65% short paragraph of 3 sentences. Numerical Skills Telling Time: Able to tell time on analog clock. CLQT CLQT CLQT Administered: Yes CLQT: Cognitive Linguistic Quick Test (CLQT) is a criterion - referenced assessment designed for adults between the ages of 18 and 89 with known or suspected neurological dysfuntions. The CLQT is to assess strength and weaknesses in five cognitive domains. Severity ratings are within normal limits, mild, moderate, severe deficits. The subtests are as follows: Date: 10/09/22 Attention Attention: Mild Memory Memory: Mild and Moderate Executive Functions Executive Functions: Mild Language Language: Mild Visuospatial Skills Visuospatial Skills: Mild Composite Severity Rating Composite Severity Rating: Mild CLQT Comments Comments: -: Overall Salvador did well. He met the cutoff criterion score for personal facts, symbol cancellation, confrontational naming, symbol trails, design memory and generative naming. He did not meet the cut off for story retelling, mazes and design generation. His deficits are in recall and high level cognitive items such as a problem solving, details, mental flexibility and critical thinking. 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 Reference: Neuro-QoL instrument Radiation Oncology Patient Plan Plan Plan: Speech therapy is recommended for cognitive skills as he demonstrates deficits in high level cognitive tasks as well as recall. Recommendations Treatment Warranted: Yes Treatment Warranted: Cognition Progress Prognosis: Good Frequency Additional (Frequency): Two times a week for 4 weeks then reduced to one time per week as the patient has limited insurance visits. Patient/Family Goal Patient/Family Goal: Patient would like to return to work. Goals that are Established Determination:: Goals will be added/modified as deemed necessary and appropriate. Therapy will be discontinued when results of re-evaluation indicate therapy is no longer needed or lack of progress has been documented. Goal #1-5 Goal #1: Salvador will complete problem solving and judgement tasks with 80% accuracy to facilitate ability to return to work as well as functional home tasks including daily living activities. Goal #2: Salvador will create an organizational system to allow for all materials to be in one place for work tasks and demonstrate use to therapist through simulated tasks. Goal #3: Salvador will use recall strategies during memory tasks on 4/5 trials as needed for 80% accuracy for recall of material presented both orally and in written form. Education Patient has Indicated that the Following Identified Educational Needs: None The Patient has indicated that they have no educational or learning abilities that may effect their care.: Yes Patient Instruction Patient Education: Diagnosis and Treatment Plan Person Taught: Patient and Significant Other Response to teaching: Verbalize understanding
--- NOTE | 2022-10-29 07:46 | HP.OTDCSUM_ITS ---
Discharge Summary D/C Summary: It has been my pleasure to treat ARI LEIGH under orders from DANIEL KIM, for the diagnosis of ischemic stroke for a total of 8 visit(s). Please see the following information for a summary of their discharge status. Overall Improvement % Improvement: 90 Objective Objective/Function: 9 HPT L Current 29 sec Prior 33.7 R Current 23 sec Prior 26.9 pt reports no concerns with FMS or computer work at this time feels his endurance is better. Goals Patient Goals: Regain Strength, Return to Work, Improve Fine Motor Skills, Impro ve Visual/Perceptual Skills and Resume Former Household Responsibilities (Cooking,Cleaning,Yard, etc.) Goal:: Patient will improve overall activity tolerance and endurance with ability to participate in 20 minutes of functional activity/strengthening without needing rest break. (goal Met) Goal:: Patient will improve L hand dexterity/coordination with improvement in 9 hole peg test by 5 seconds by discharge. ( goal met) Goal:: Patient will complete visual saccades and/or visual tracking exercises with 90% acccuracy using compensatory techniques as needed (turning head). Goal:: Patient will improve cognitive endurance and working memory evidenced by ability to read or listen to and answer questions from a short story with 90% accuracy. Plan Plan: Pt was seen for 8 skilled OT visits. Pt progressed well and met all goals. Discussed driving rehab to safely return back to driving, encouraged patient and patient's to schedule an appointment since they have a referral. D/C Information Discharge Comments: pt was seen for 8 OT session. He made great gains in endurance and FMS. Pt has met goals and is ready for D/C with [facility]. Pts will schedule driving assessment to ensure pt can return to driving. pt and agree with POC and d/c. d/c sentence: If there are questions or concerns regarding this patient's occupational therapy, please fell free to call me at [phone]. Thank you for the referral of this patient. Sincerely, Suly Vera, OTR/L, CHT
--- NOTE | 2022-11-01 10:59 | HP.PTREVAL ---
Re-Evaluation Intro: DANIEL KIM, It has been my pleasure to treat ARI LEIGH over the last 11 visits for CVA. Please see the progress note below for an update on the physical therapy plan of care! Subjective Subjective: Walking better and getting around easier. Fatigues more slowly. Sleeps well. Not really painful. back pain now and then. Activities: not back to work. 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 family says his knee holds him back with his arthritis. Objective Objective/Function: No SOB with ambulation, has slight L trendelenberg which is better than day one. Steps up without rail and down with one rail. Overall has some L knee pain from OA and some fatigue but admittedly noncompliant with HEP. feels like he can continue HEP 3x/week and join for gym ex 3x/week on his own rather than more therapy. New goal and fair prognosis. Plan Plan Plan: f/u two weeks to ensure compliance and progress. Check FGA, steps, L knee and progress gym ex if helping Balance/Gait/Functional tests Balance/Special Test Scores Functional Gait Assessment Score: 25 % Disability: 16.6700 CATSIB Score (Max score 120 seconds): 120 Lower Extremity Functional Score: 52 Goals Goals Goal 1:: Walk up and down street without faituge at home Goal Time Frame: 4-6 Weeks Goal Progress: Progressing Goal 2:: I appropriate HEP for strength core, hips, body to [place] Goal Time Frame: 4-6 Weeks Goal Progress: met, compliance? Goal 3:: Pt confident swiniging golf club Goal Time Frame: 4-6 Weeks Goal Progress: Goal Met Goal 4:: Ready to return to work Goal Time Frame: 4-6 Weeks Goal Progress: ??, not sure with stress Goal 5:: 55 LEFS Goal Time Frame: 4-6 Weeks Goal Progress: Progressing Goal 6:: Ensure progress and compliance HEP for 2 weeks Goal Time Frame: 2 Weeks Anticipated Interventions Anticipated Interventions Patient/Client Instruction: Educate patient on: Condition and Plan of Care For the Purpose of:: To increase ROM, To improve nutrient delivery to tissue, To improve muscle performance and motor function, To increase tolerance to activity/condition/position and To improve gait and locomotor functions Therapeutic Exercise to Include: Strength training, Balance training, Flexibilty training and Gait and locomotor training For the Purpose of:: To improve nutrient delivery to tissue, To improve muscle performance and motor function, To increase tolerance to activity/condition/position and To improve gait and locomotor functions Re-Evaluation Ending Re-evaluation ending: Please do not hesitate to contact me at [phone] by phone or if you have questions or concerns regarding this new plan of care! Sincerely, Juan Canseco, DPT, OCS, CSCS
--- NOTE | 2022-11-14 08:26 | HP.PTDCSUM ---
Discharge Summary D/C summary: It has been my pleasure to treat ARI LEIGH referred by DANIEL KIM, with the diagnosis of CVA for a total of 12 visit(s). Discharge Date: 11/14/22 Please see the following information for a summary of their discharge status. Subjective Subjective: Working out in gym on own and going well 3x/week. Overall doing well, feeling stronger, fatigued a little at end of day but better. Activities are OK. Not working yet but feels like he could. Went out golfing with dtr and was fatiguing but did OK. Ready to be on own. 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 Pain L shoulder: Pain Intensity (Out of 10): 1 L knee: Pain Intensity (Out of 10): 2 Overall Improvement % Improvement: 90 Objective Objective/Function: walking around easily and I without problems, no concerns with worwkout but wanted more so instructed in that today. Feels ready to be on his own. 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 Goals Goal 1:: Walk up and down street without faituge at home Goal Progress: Goal Met Goal 2:: I appropriate HEP for strength core, hips, body to G[place] Goal Progress: Goal Met, HP Goal 3:: Pt confident swiniging golf club Goal Progress: Goal Met Goal 4:: Ready to return to work Goal Progress: Goal Met Goal 5:: 55 LEFS Goal Progress: Progressing Goal 6:: Ensure progress and compliance HEP for 2 weeks Goal Progress: Goal Met Plan Plan: d/c to I gym program D/C Information Discharge Comments: Doing well and will contact doctor regarding RTW which is appropriate. d/c sentence: If there are questions or concerns regarding this patient's physical therapy, please feel free to call me at [phone]. Thank you for the referral of this patient. Sincerely, Juan Canseco, DPT, OCS, CSCS Balance/Gait/Functional tests Balance/Special Test Scores Functional Gait Assessment Score: 25 % Disability: 16.6700 CATSIB Score (Max score 120 seconds): 120 Lower Extremity Functional Score: 52
== END 2022-11-14 19:00 | disposition home or self-care (01) ==
LOC: PT 08:00
PROVIDERS: PCP Family Medicine
DX: I63.9 Cerebral infarction, unspecified (principal)
CPT/HCPCS: 92507; 92523; 97110; 97129; 97130; 97162; 97164; 97166; 97530

== ENCOUNTER → 2023-04-28 | Outpatient (CLI) | payer OTHER, SELFPAY ==
--- OUTSIDE RECORDS SUMMARY | 2023-04-28 12:43 | XMS RPT_ITS | CCD ---
Author Name Unknown Address [address] [place] [address] Organization [facility] Care Team Providers Care Signals Collector/Analyst Name Role Phone Edvin Polanco MD Primary Care Provider EDVIN POLANCO Primary Care Unavailable EDVIN POLANCO Primary Care Unavailable BASSAM HECTOR Attending Unavailable TIFFANI CAMARGO Referring Unavailable TIFFANI CAMARGO Admitting Unavailable EDVIN POLANCO Primary Care Unavailable CONSULT, NEUROLOGY-STROKE ALERT Consulting Unavailable MATT DOZIER JR. Referring Unavailabl e TIFFANI CAMARGO Attending Unavailable Ventura Wells MD Unavailable Medications Current Medications Medication Drug Class(es) Dates Sig (Normalized) Sig (Original) aspirin 81 mg chewable tablet (4 sources) Platelet Aggregation Inhibitor, Nonsteroidal Anti-inflammatory Drug Start: 09-21-2022 End: 03-22-2023 aspirin 81 MG Chew Tab chewable tablet Chew 1 tablet daily. 30 tablet 5 09/23/2022 03/22/2023 Active clopidogrel 75 mg oral tablet (4 sources) P2Y12 Platelet Inhibitor Start: 09-22-2022 End: 12-20-2022 take 1 tablet by mouth once daily Clopidogrel 75 MG tablet Take 1 tablet by mouth daily. 30 tablet 2 09/23/2022 12/20/2022 Active empagliflozin 10 mg oral tablet (1 source) Sodium-Glucose Cotransporter 2 Inhibitor take 1 tablet by mouth once daily in the morning Empagliflozin (Jardiance) 10 MG tablet Take 1 tablet by mouth daily every morning. 0 Active glipiZIDE er 10 mg 24 hr extended release oral tablet (2 sources) Sulfonylurea Start: 09-20-2022 glipiZIDE 10 MG tablet XL leucovorin 5 mg oral tablet (3 sources) Folate Analog Start: 08-15-2022 End: 09-23-2022 take 1 tablet by mouth every week leucovorin 5 MG tablet Take 1 tablet by mouth once a week. Friday evening 0 08/15/2022 Active metFORMIN hydrochloride 500 mg oral tablet (1 source) Biguanide Start: 10-18-2022 take 1 tablet by mouth twice daily metFORMIN 500 MG tablet Take 1 tablet by mouth 2 times daily. 0 10/18/2022 Active [place]-3 Fatty Acids ([place]-3 Microgel) 600 MG capsule (1 source) [place]-3 Fatty Acids ([place]-3 Microgel) 600 MG capsule Take 600 capsules by mouth 2 times daily. 0 Active omeprazole 20 mg delayed release oral capsule (1 source) Proton Pump Inhibitor take 1 capsule by mouth once daily omeprazole [address] capsule Take 1 capsule by mouth daily. 0 Active ramipril 1.25 mg oral capsule (2 sources) Angiotensin Converting Enzyme Inhibitor Start: 09-20-2022 take 1 capsule by mouth at bedtime ramipril 1.25 MG capsule Take 1 capsule by mouth at bedtime. 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] Onset: 09-21-2022 09-21-2022 Episodic Diabetes mellitus with complications (3 sources) Diabetes mellitus; Translations: [Type 2 diabetes mellitus with hyperglycemia] Onset: 09-22-2022 09-22-2022 Chronic Headache; including migraine (1 source) Headache; Translations: [Nonintractable headache, unspecified chronicity pattern, unspecified headache type] 09-21-2022 Episodic Headache; including migraine (2 sources) Headache; including migraine; Translations: [Headache, unspecified] Onset: 09-21-2022 Other aftercare (1 source) Patient encounter status; Translations: [residential (current) use of antithrombotics/anti platelets] 11-25-2022 Episodic Other aftercare (1 source) Post-discharge follow-up; Translations: [Encounter for follow-up examination after completed treatment for conditions other than malignant neoplasm] 11-25-2022 Episodic Residual codes; unclassified (1 source) History of noncompliance with medication regimen; Translations: [History of medication noncompliance] 11-25-2022 Episodic Results Test Name Value Interpretation Reference Range Facil ity Vital Signs Date Time Vital Sign Value Performing Clinician Faci lity 11-01-2022 14:14-0400 Body height 177.8 cm Bassam Phillipadam [employer] Work Phone: [facility] 11-01-2022 14:14-0400 Body mass index (BMI) [Ratio] 29.69 kg/m2 Bassam Phillipadam [employer] Work Phone: [facility] 11-01-2022 14:14-0400 Body temperature 98.01 [degF] Bsasam Phillipadam [employer] Work Phone: [facility] 11-01-2022 14:14-0400 Body weight 93.85 kg Bassam Hector [employer] Work Phone: [facility] 11-01-2022 14:14-0400 Diastolic blood pressure 87 mm[Hg] Bassam Phillipadam [employer] Work Phone: [facility] 11-01-2022 14:14-0400 Heart rate 92 /min Bassam Hector [employer] Work Phone: [facility] 11-01-2022 14:14-0400 Systolic blood pressure 129 mm[Hg] Bassam Phillipadam [employer] Work Phone: [facility] 09-23-2022 11:40-0400 SaO2% (BldA) [Mass fraction] 97 % Robel Johansen MD Work Phone: [facility] 09-23-2022 09:43-0400 Diastolic blood pressure 101 mm[Hg] Robel Johansen MD Work Phone: [facility] 09-23-2022 09:43-0400 Systolic blood pressure 158 mm[Hg] Robel Johansen MD Work Phone: [facility] 09-23-2022 09:30-0400 Heart rate 105 /min Robel Johansen MD Work Phone: [facility] 09-23-2022 09:20-0400 Respiratory rate 21 /min Robel Johansen MD Work Phone: [facility] 09-23-2022 07:46-0400 Body temperature 98.01 [degF] Robel Johansen MD Work Phone: [facility] 09-22-2022 06:01-0400 Body height 177.8 cm Robel Johansen MD Work Phone: [facility] 09-22-2022 06:01-0400 Body mass index (BMI) [Ratio] 34.15 kg/m2 Robel Johansen MD Work Phone: [facility] 09-22-2022 06:01-0400 Body weight 107.96 kg Robel Johansen MD Work Phone: [facility] Encounters Encounter Date Encounter Type Care Provider Facility Start: 11-01-2022 ambulatory [facility] Facility:[facility] Start: 11-01-2022 End: 11-01-2022 Office outpatient visit 40 minutes Bassam Hector [employer] Work Phone: [facility] Procedures Date Procedure Procedure Detail Performing Clinician Start: 09-23-2022 Glucose measurement, blood Tiffani Camargo MD Work Phone: Start: 09-23-2022 Glucose measurement, blood Tiffani Camargo MD Work Phone: Start: 09-23-2022 CONTINUOUS CARDIAC MONITORING STRIP Other Other Start: 09-23-2022 Electrolyte panel Inna Matthews [employer] Work Phone: Start: 09-22-2022 Glucose measurement, blood Tiffani Camargo MD Work Phone: Start: 09-22-2022 Glucose measurement, blood Tiffani Camargo MD Work Phone: Start: 09-22-2022 Glucose measurement, blood Tiffani Camargo MD Work Phone: Start: 09-22-2022 Glucose measurement, blood Tiffani Camargo MD Work Phone: Start: 09-22-2022 Lipid 1996 panel - S sheila or Plasma Robel Johansen MD Work Phone: Start: 09-22-2022 Hemoglobin glycosyla eve a1c Patti Morelos MD, MPH Work Phone: Start: 09-22-2022 Hepatic function panel Patti Morelos MD, MPH Work Phone: Start: 09-21-2022 Glucose measurement, blood Tiffani Camargo MD Work Phone: Start: 09-21-2022 Glucose measurement, blood Tiffani Camargo MD Work Phone: Start: 09-21-2022 Drug tst prsmv instr mnt chem analyzers pr date Deepthi Yi MD Work Phone: Start: 09-21-2022 EXTRA MICRO Deepthi segundo MD Work Phone: Start: 09-21-2022 Urnls dip stick/tabl et rgnt auto w/o microscopy Deepthi Yi MD Work Phone: Start: 09-21-2022 Ct angiography head w/contrast/noncontrast Patti Morelos MD, MPH Work Phone: Start: 09-21-2022 Assay of magnesium Memoi molly Johansen MD Work Phone: Start: 09-21-2022 CBC AND ELECTRONIC DIFF Deepthi Yi MD Work Phone: Start: 09-21-2022 Complete blood count with white cell differential, automated Deepthi Yi MD Work Phone: Start: 09-21-2022 GOLD TOP TUBE David Johansen MD Work Phone: Start: 09-21-2022 Hepatic function panel Deepthi Yi MD Work Phone: Start: 09-21-2022 LAVENDER TOP TUBE Sreedhar Johansen MD Work Phone: Start: 09-21-2022 LT BLUE TOP TUBE Jak Johansen MD Work Phone: Start: 09-21-2022 MINT GREEN TOP TUBE Chr alan Johansen MD Work Phone: Start: 09-21-2022 RAINBOW DRAW Danie oJhansen MD Work Phone: Start: 09-21-2022 Glucose measurement, blood Robel Johansen MD Work Phone: Plan of Treatment Date Care Activity Detail Author Start: 08-03-2028 Tetanus vaccination TETANUS [facility] Start: 09-23-2027 Lipid panel LIPID SCREENING [facility] Start: 09-23-2023 Lipid panel LIPIDS [facility] Start: 03-24-2023 Hemoglobin A1c measurement HBA1C TEST [facility] Start: 11-29-2022 Influenza vaccination [facility] Start: 11-01-2022 End: 11-01-2022 Patient encounter procedure 11/01/2022 2:20 PM EDT Office Visit [facility] [address] [place] [address] Bassam Hector, [employer] [address] [facility] [address] [place] [address] [facility] Start: 09-23-2022 End: 09-24-2023 Echocardiography ECHOCARDIOGRAM Echocardiography Routine Ischemic stroke Expected: 09/23/2022, Expires: 09/24/2023 [facility] Immunizations Immunization Date Immunization Notes Care Provider Silvestre jon 02-04-2018 influenza virus vaccine, unspecified formulation Robel Johansen MD Work Phone: [facility] Payers Date Payer Category Payer Unknown [employer] [id number] 2022-Present [address] [place] [address] [id number] 2022 Unknown [id number] 1960 Unknown [id number] 1960 Unknown [id number] 1960 Unknown [id number] Social History Date Type Detail Facility Start: 09-22-2022 Tobacco smoking status NHIS Never smoked tobacco [facility] Start: 09-22-2022 Tobacco use and exposure Smokeless tobacco non-user [facility] Start: 09-22-2022 End: 11-01-2022 History of Social function [facility] Start: 09-22-2022 End: 11-01-2022 Tobacco use panel [facility] Start: 1960 Sex Assigned At Not on file [facility] Start: 09-12-2022 End: 09-22-2022 Exposure to SARS-CoV-2 (event) Not sure [facility] NEGATED: Highlighted rowStart: NINF History of tobacco use Passive smoker [facility] Clinical Notes 09-21-2022 to 11-01-2022 Bassam Hector, [employer] - 11/01/2022 2:20 PM EDTPatient InstructionsNursing Notes - Jag Alvarez RN - 09/23/2022 1:56 PM EDTNursing Notes - Jag Alvarez RN - 09/23/2022 1:56 PM EDT Note Date & Type Note Facility 11-01-2022 History of Presen t illness Narrative [facility] Department of Neurology Section of Cerebrovascular Disease and [facility] Follow Up IDENTIFYING PATIENT INFORMATION: Ari Santiago MR# [id number] 11/01/2022 CHIEF COMPLAINT: Follow up after hospitalization HISTORY OF PRESENT ILLNESS: The patient Ari Santiago is a 62 y.o. male has a past medical history of Diabetes mellitus, Essential hypertension, benign, Hyperlipidemia, and TIA (transient ischemic attack). Ari Santiago for follow-up after recent hospitalization. For details, please refer to the discharge summary dated 09/23/22. In summary, the patient presented with left hemianopsia. Per chart review, on 09/16, patient had left facial numbness and decreased vision in L eye. He went to [place] where a CTH and CTA were reportedly negative. He was monitored for 24h and discharged on ASA. On 09/18, patient developed a ALBARADO and dizziness and was evaluated in the ED but was discharged without a diagnosis. On 09/19, he went to see an eye doctor due to vision loss who said he had a stroke based on clinical symptoms of L hemianopsia. On 09/21, he went to [facility] where CTH showed acute R occipital and thalamic strokes. He was then transferred to [facility] ED. On arrival, initial NIHSS was 4 (2-vision, 1- sensory, 1-LOC questions). He was not a candidate for thrombolysis or thrombectomy as he was outside the window. CTA on arrival confirmed R P2 stenosis, confirming intracranial atherosclerosis as etiology of stroke. Stroke work up: CTH: acute infarcts in R occipital, R thalamus and probably L occipital stroke CTA brain/neck: R P2 severe stenosis, moderate R cavernous/carotid syphon ICA stenosis, mod-severe RV stenosis MRI brain 09/17 at [facility]: no acute stroke TTE: outpatient ECG: normal sinus rhythm LDL 56 HgbA1c 9.5 Diagnosed with acute infarcts in R occipital, R thalamus and probably L occipital stroke with likely etiology of intracranial atherosclerosis. Evidence of sleep apnea during hospital stay so sleep study recommended OP. Discharged on ASA 81mg and Plavix 75mg for 90 days (until 12/20/22) followed by ASA 81mg indefinitely. Plan to continue Atorvastatin 80mg for secondary stroke risk reduction. PAST MEDICALHISTORY: Past Medical History: Diagnosis Date Diabetes mellitus Essential hypertension, benign Hyperlipidemia TIA (transient ischemic attack) PAST SURGICAL HISTORY: No past surgical history on file. CURRENT MEDICATIONS: Current Outpatient Medications Medication Sig Dispense Refill amLODIPine 10 MG tablet Take 1 tablet by mouth daily. aspirin 81 MG Chew Tab chewable tablet Chew 1 tablet daily. 30 tablet 5 atorvastatin 80 MG tablet Take 1 tablet by mouth daily. Clopidogrel 75 MG tablet Take 1 tablet by mouth daily. 30 tablet 2 Empagliflozin (Jardiance) 10 MG tablet Take 1 tablet by mouth daily every morning. leucovorin 5 MG tablet Take 1 tablet by mouth once a week. Friday evening metFORMIN 500 MG tablet Take 1 tablet by mouth 2 times daily. methotrexate 2.5 MG tablet Take 1 tablet by mouth every 7 days. Take 6 tabs by mouth every Friday [place]-3 Fatty Acids ([place]-3 Microgel) 600 MG capsule Take 600 capsules by mouth 2 times daily. omeprazole [address] capsule Take 1 capsule by mouth daily. ramipril 1.25 MG capsule Take 1 capsule by mouth at bedtime. glipiZIDE 10 MG tablet XL (Patient not taking: Reported on 11/01/2022) No current facility-administered medications for this visit. ALLERGIES: No Known Allergies SOCIAL HISTORY: Social History Tobacco Use Smoking status: Never Passive exposure: Never Smokeless tobacco: Never Psycho-Social History: He reports that he has never smoked. He has never been exposed to tobacco smoke. He has never used smokeless tobacco. No history on file for alcohol use and drug use. FAMILY HISTORY: No family history of early strokes PAIN ASSESSMENT (Patient reports Pain): none FALL ASSESSMENT: none MEDICATION COMPLIANCE: Takes medication as prescribed without missed doses RECENT HOSPITALIZATION: none HOME HEALTH NEEDS: none FUNCTIONAL ASSESSMENT (Able to perform all ADLs): Performs all ADL's independently REVIEW OF SYSTEMS: No history of fever, chills, sweats, weight loss, fatigue, double vision,visual scintillations, blurring, hearing loss, tinnitus, voice change, speech problems, chest pain, dyspnea, palpitations, cough, swallowing difficulties, nausea, vomiting, diarrhea, constipation, hematuria, dysuria, frequency, joint pain, joint swelling, rash, easy bruising, bleeding, headache, memory loss, dizzy, LOC, focal motor weakness, sensory loss, numbness, tingling, tremors, twitches, seizures, balance problems, gait problems, coordination difficulties, depression, fatigue, or insomnia. Positive Review of Systems:vision loss PHYSICAL EXAM: Vitals: 11/01/22 1414 BP: 129/87 Pulse: 92 Temp: 98 degrees F (36.7 degrees C) TempSrc: Infrared Weight: 93.8 kg (206 lb 14.4 oz) Height: 1.778 m (5' 10 ) Neurological examination: General: The patient appears nutritionally appropriate, well-groomed, and appears comfortable in no acute distress. Mental Status: The patient s mental status was normal including orientation, memory, attention span, concentration, and fund of knowledge. Language was intact. Cranial nerves: L hemianopsia, pupils were equal and reactive to light, and extra-ocular motion was intact. Face motion and sensation were symmetric. . Palate was symmetric. Bilateral shoulder shrug was intact. Tongue was midline with normal movement. There was no dysarthria. Motor: Normal strength and tone in all four extremities. No pronator drift. Sensation: Intact light touch bilaterally, no extinction. Coordination: LUE decreased finger tap Gait: Gait was narrow-based and steady. NIH STROKE SCALE 1a. Level of consciousness: 0 1b. Level of consciousness questions: 0 1c. Level of consciousness commands: 0 2. Best Gaze: 0 3. Visual: 1 4. Facial Palsy: 0 5a. Motor left arm: 0 5b. Motor right arm: 0 6a. Motor left le 6b. Motor right le 7. Limb Ataxia: 0 8. Sensory: 0 9. Best Language: 0 10. Dysarthria: 0 11. Extinction and Inattention: 0 TOTAL: 1 Modified [facility]: 2 DATA: HgBA1c: Lab Results Component Value Date HGBA1C 9.5 (H) 09/22/2022 Lipid panel: Lab Results Component Value Date CHOLESTEROL 120 09/22/2022 TRIG 172 (H) 09/22/2022 HDL 30 (L) 09/22/2022 LDLCALC 56 09/22/2022 ASSESSMENT: The patient is a 62 y.o. male with a history of has a past medical history of Diabetes mellitus, Essential hypertension, benign, Hyperlipidemia, and TIA (transient ischemic attack). who presents to outpatient stroke clinic for follow-up after recent hospitalization. Ari Magdalena Reese status post R occipital, R thalamus and probable L occipital stroke with likely etiology of intracranial atherosclerosis. Patient in clinic today to discuss mechanism, etiology, pharmacological management, and ongoing stroke prevention. Would not recommend angioplasty/stenting, since [facility] found no benefit of interventional treatment compared to aggressive medical management for symptomatic high grade intracranial atherosclerotic disease. Discussed secondary stroke risk factors DM, HTN, HLD, CATHY, medication noncompliance. Per patient, he had stopped taking his medications for a couple of months. Evidence of sleep apnea during hospital stay so sleep study recommended and ordered OP. Patient with HgbA1c of 9.5. Endorses medication compliance and eating healthier. Reviewed pertinent medication related to stroke prevention. Discharged on ASA 81mg and Plavix 75mg for 90 days (until 12/20/22) followed by ASA 81mg indefinitely. Plan to continue Atorvastatin 80mg. Neurological examination shows LUE ataxia, decreased LUE finger tap, left hemianopsia, decreased spacial awareness (running into furniture). NIHS 1, mRS 2 (not driving). Discussed natural history, prognosis, and treatment of stroke as well as recovery issues.For secondary stroke prevention, the patient should continue daily anti-platelet medication and vascular risk factor modification. Addressed the following issues: Cancer screenings Up to date per patient No unexplained weight loss/gain/bruising/bleeding Essential HTN goal SBP <140 in setting of stroke. Fatigue Discussed incidence and natural history of post stroke fatigue. Tobacco abuse Ocassional cigar in the past. Encouraged cessation. CATHY Referral to sleep medicine PLAN: ? Anti-platelet medication: continue DAPT 12/20/22 and then ASA lifelong ? Physical therapy/Speech therapy/Rehabilitation ? To reduce the risk of future ischemic stroke, the patient needs continued vascular risk factor modification. The following are the recommended guidelines*: ? LDL Goal: < 70 mg/dL ? Smoking Cessation ? Diabetes management: Goal <6.5 ? Blood pressure control: should achieve <140/80 mmHg. BP management should aim to achieve terminal make up operator control in a reasonable amount of time, taking into consideration the individual patient's requirements and characteristics. ? Weight Management: Goal for BMI is 18.5-24.9 kg/m2. ? Alcohol: No more than 2 drinks/day for men or 1 drink/day for non- women. ? Promote lifestyle modification: weight control, physical activity, moderation of alcohol intake, moderate sodium intake. ? Follow-up with [facility] (plan to follow up closer to home). ADDITIONAL RECOMMENDATIONS: Will defer any further evaluation that may be warranted to patients primary care physician. Thank you for allowing me to participate in the care of Ari Jorgegartner. If you have any questions or concerns please contact me. OLIVER Stewart 11/01/2022 2:30 PM I spent about 40 minutes today with patient, reviewing history, and hospital records, MRs, CTs, labs, examining patient, discussing impressions, answering questions and charting. *References: (1) Renny et al, Stroke 2011, 42:227-276; (2) Purdy et al, Stroke 2006, 4814-5453; (3) Liz et al, Stroke 2006; 37: 577-617; (4) Olga Montero. KAMILLA 2003, 289:4357-0632; (5) Purdy, et al, Circulation 2001, 103-163; (6) Jorgensen et al, Stroke 1998, 8868-9693;(7) ATP III. See also http:///nhlbi.nih.gov/guidelines/ cholesterol/index.htm documented in this encounter [facility] 11-01-2022 Instructions OLIVER Stewart - 11/01/2022 2:20 PM EDT ASA 81mg and Plavix 75mg for 90 days (until 12/20/22) Please send TTE results to [facility] documented in this encounter [facility] 09-23-2022 Nurse Note AVS completed with patient and family at bedside, all questions and concerns answered with discharge education reviewed and completed final NIH completed and charted per metric. IV successfully removed with no complications per policy and procedure. Patient escorted down by this RN via wheelchair, discharge successful. [facility] 09-23-2022 Miscellaneous Notes AVS completed with patient and family at bedside, all questions and concerns answered with discharge education reviewed and completed final NIH completed and charted per metric. IV successfully removed with no complications per policy and procedure. Patient escorted down by this RN via wheelchair, discharge successful. Stroke patient education has been reviewed and all required elements are complete and personalized. Care plan documentation complete and patient adequate for discharge. Next dose medication details have been added to the AVS as appropriate. Problem: OT - ADLs Goal: Toileting Description: Pt will navigate to bathroom & complete toileting task including clothing management with supervision and standby assistance for improved ability to safely complete self-care activities. Outcome: Ongoing Goal: Bathing Description: Pt will perform full body bathing/dressing routine with modified independence and supervision while seated for improved ability to complete self-care activities. Outcome: Ongoing Problem: OT - Visual Scanning Goal: Visual Scanning Functional Mobility Description: Pt will use appropriate visual scanning techniques with supervision and standby assistance 100% of the time during functional mobility to promote safety and success during daily routine. Outcome: Ongoing Goal: Visual Scanning ADL Description: Pt will employ use of visual compensatory strategies with less than 30% cues to increase participation and safety in ADLs. Outcome: Ongoing Problem: Patient Care Overview Goal: Plan of Care Review Outcome: Met This Shift Goal: Interdisciplinary Rounds/Family Conf Outcome: Met This Shift Problem: Patient Care Overview Goal: Individualization & Mutuality Outcome: Ongoing Problem: Stroke (Ischemic) (Adult) Goal: Signs and Symptoms of Listed Potential Problems Will be Absent, Minimized or Managed (Stroke) Description: Signs and symptoms of listed potential problems will be absent, minimized or managed by discharge/transition of care (reference Stroke (Ischemic) (Adult) CPG). Outcome: Ongoing Problem: Patient Care Overview Goal: Discharge Needs Assessment Outcome: Progressing Toward Goal Patient receiving class B hazardous medication. All precautions observed. Sign hung in room. Patient & family educated on keeping toilet covered & flushing twice after voiding. Patient & family verbalized understanding. I certify that this patient requires inpatient services at this time. I anticipate the expected length of stay will include at least two midnights. Inpatient services are due to the following medical concerns stroke. Plans for post hospitalization care will be discharge to pending. documented in this encounter [facility] 09-23-2022 Nurse Note Stroke patient education has been reviewed and all required elements are complete and personalized. Care plan documentation complete and patient adequate for discharge. Next dose medication details have been added to the AVS as appropriate. 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 Barriers to discharge home: 1:1 assist needed for IADL's including medication management and finances Supporting factors for discharge setting: Impaired cognitive skills limiting independence Acute ETCHER APPRENTICE Outcomes Tracking Communicate basic wants and needs?: yes Demo insight/appreciation of deficits?: yes Complete basic problem solving?: yes Current therapy frequency recommendation in acute: Speech/Lang/Cog Therapy Frequency: no therapy warranted (in acute care setting) Clinical Impression: Ari Santiago presents with mild cognitive deficits, characterized by deficits in the areas of attention, immediate/delayed recall, and executive function/sequencing 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 The patient with L visual field cut, requiring compensatory strategies to scan for reading, writing, and other ADLs/iADLs. He is aware of L visual difficulties but will benefit from ongoing therapy to assist with utilizing and implementing compensatory strategies. These deficits result in functional limitations in ability to complete iADLs. Patient Instruction/Education this session: Stroke education provided to Patient and patient's and daughter. Focus on ETCHER APPRENTICE role in plan of care as well as education of need for assistance with initial medication management set up/administration, benefit of alarms/reminders, encouragement to follow precautions already recommended by PT/OT team and medical team (not using stove alone, not driving) . Education provided in Verbal format, with demonstration of understanding with teach back of education, appropriate follow-up questions and report of no further education needed. Plan for next session: None in the setting. The patient will benefit from outpatient ETCHER APPRENTICE services at discharge to target aforementioned impairments. Subjective: Patient is awake, alert, eating lunch at bedside fully dressed to go home. Patient's and daughter are present - very supportive, ask good questions about patient's plan of care. Report that they will be able to provide patient with assistance at discharge. Pain: General Pain Documentation (Adult, OB, Peds) Presence of Pain: complains of pain/discomfort DVPRS (Defense and Veterans Pain Rating Scale) DVPRS: Rest: 4- mild pain DVPRS: Activity: 4- mild pain Lines/Drains/Tubes: Lines/Tubes/Drains (Rehab Status): No critical lines at this time Patient History Comments: Per chart: Lc Santiago is a 61 y.o. male with a history of RA on methotrexate, HTN, HLD, T2DM who on 09/16 developed symptoms of L hemianopsia and L sided numbness. LKW: 09/16 On 09/16, patient had L facial numbness and decreased vision in L eye. He went to [place] where a CTH and CTA were reportedly negative. He was monitored for 24h and discharged on ASA. On 09/18, he had a ALBARADO and dizziness so went back to the ED but was discharged again without a diagnosis. On 09/19, he went to see an eye doctor due to vision loss who said he had a stroke based on clinical symptoms of L hemianopsia. On 09/21, he went to [facility] where CTH showed acute R occipital and thalamic strokes. He was then transferred to [facility] ED. On arrival, initial NIHSS was 4 (2-vision, 1- sensory, 1-LOC questions). He was not a candidate for thrombolysis or thrombectomy as he was outside the window. Prior Level of Function: Independent prior to admission. 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 Residence: House Lives With: spouse, child(charanjit) IADL History IADLs: independent Primary Language: Bel[place]an IADL Comments: Pt normally independent at baseline Respiratory Status: Room Air EXPRESSIVE LANGUAGE: Intact Task: Automatic Speech Intact Phrase Completion Intact Confrontation Naming Intact Answering 'wh' Questions Intact Repetition Intact Verbalize Basic Wants and Needs Intact Functional Participation in Conversation Intact RECEPTIVE LANGUAGE: Intact Task: Follow 1-Step Commands Intact Follow 2+ Step Commands Intact Answers Basic Y/N Questions Intact Answers Complex Y/N Questions Intact Conversational Comprehension Intact READING: Impaired Task: Letter Identification Intact Single Words Aloud Intact Single Word Comprehension Intact Sentence Comprehension Intact Functional Environmental Reading Impaired (scanning difficulties) WRITING: Intact Task: Functional Writing Intact SOCIAL INTERACTION/PRAGMATICS: Intact Task: Initiates Conversation Intact Takes Turns in Communication Intact Maintains Eye Contact Intact Maintains Topic Intact Shifts Topics Appropriately Intact Affect Intact Responds Appropriately to Questions Intact COGNITION: Impaired Task: Arousal/Alertness Delayed responses to stimuli (mildly delayed intermittently) Orientation Level Oriented X4 Safety Judgment Decreased awareness of need for safety Awareness of Errors Assistance required to correct errors made, Assistance required to identify errors made Deficits Decreased awareness of deficits Attention Span Difficulty dividing attention Memory Decreased short term memory (decreased immediate memory vs difficulty with repetition) Problem Solving Assistance required to generate solutions, Assistance required to identify errors made Cognition Comments CRANIAL NERVE EXAMINATION: Cranial Nerve Exam CN V (Trigeminal) equal sensation on forehead, cheeks, and jaw CN VII (Facial) strong bilateral movement of upper and lower face CN IX (glossopharyngeal) voice quality strong and clear CN X (Vagus) uvula is midline CN XI (Accessory) strong and equal rotation of head, strong and equal shoulder shrug CN XII (Hypoglossal) clearly articulated speech MOTOR SPEECH TASKS: Intact Task: Imitate Motor Movements Intact Imitate Sounds and Words Intact Rapid Alternating Movements Intact Speech Intelligibility Intact Fluency Intact Saliva Management Intact VOCAL PARAMETERS: Intact Task: Breath Support Intact Coordination of Respiration and Phonation Coordination of respiration and phonation: Intact Duration of Phonation Intact Pitch Control Intact Loudness Intact Vocal Quality WDL Subjective Voice Evaluation Grade of dysphonia (G): 0 Roughness (R): 0 Breathiness (B): 0 Asthenia (A): 0 Strain (S): 0 ETCHER APPRENTICE Outcomes: The Orientation Log (O-Log) is designed to be a quick quantitative measure of orientational status for use at bedside with rehabilitation inpatients. Place, time, and situational (Etiology/Event + Pathology/Deficits) domains are assessed. Patient responses are scored according to the following criteria: 3 = correct spontaneously or upon first free recall attempt; 2 = correct upon logical cueing (e.g., That was yesterday, so today must be ); 1 = correct upon multiple choice or phonemic cuing; and 0 = incorrect despite cueing, inappropriate response, or unable to respond. Total Score: this . The Cognitive Log (Cog-Log) is designed to be a quick quantitative measure of cognition for use at bedside with rehabilitation patients. It is intended for individuals who have achieved consistent accurate orientation, such as measured by the Orientation Log (O-Log). The Cog-Log can be used to document cognitive progress on a daily basis, in the areas of immediate memory, reasoning, thought organization and attention. All items are scored from 0 to 3 for a total possible score of 30, which can be graphed for quick reference. Total Score: this . Goal #1: The patient will participate with speech/language/cognitive evaluation in order to pinpoint deficits and assist in determining most appropriate discharge plan for patient - Goal met. I was assisted by no one for today's session. and I used gloves and facemask in today's patient interaction. Speech Language Pathologist: TINY Zelaya Time In: 1140 Time Out: 1205 Total Visit Time: 25 minutes Total Treatment Time (skilled, billable minutes): 25 minutes Patient location at end of session: bed with head of bed elevated Alarms on at end of session: RN aware and no alarms were changed/manipulated during this encounter. Needs in reach. ETCHER APPRENTICE Evaluation and Treatment Time Speech Sound Production Eval W/ Lang Comp and Exp Time Entry: 25 Upon discontinuation of Acute Care Speech Therapy Services or patient discharge from the hospital this note represents the current Speech Therapy Discharge Summary Acute Care Speech-Language Pathology Note Received consult for swallow evaluation. However, pt passed Sod Swallow Screening by nursing. Swallow eval by ETCHER APPRENTICE will not be completed at this time unless this service notified of change in status or re-consult for swallow eval placed. ETCHER APPRENTICE to proceed with speech/language/cognitive evaluation per order. Thank you. No charge Lynne Salas MS [facility]-ETCHER APPRENTICE #[id number] Pager# [phone] Can also be reached via [facility] secure chat Mon-Fri between [phone] Acute Occupational Therapy Evaluation Prior to Admission AM-PAC Score: PRIOR LEVEL AM-PAC Activity Raw Score: 24 PRIOR LEVEL AM-PAC Mobility Raw Score: 24 Current AM-PAC score(s): CURRENT AM-PAC Mobility Raw Score: 19 CURRENT AM-PAC Activity Raw Score: 18 Based on the above AM-PAC score(s) and OT clinical judgment, discharge destination recommendation is: Home with family 21/10 supervision/assist and Outpatient Rehab Services. Barriers to discharge home: Patient needs assistance with functional mobility, Patient needs assistance with ADLs, Patient needs assistance with IADLs (see note below), Patient needs assistance with medication management, Patient needs assistance with self-care for medical condition (see note below) Mobility equipment available at home: none used ADL equipment available at home: none Equipment recommendations for discharge: shower chair Current therapy frequency recommendation(s) in acute: 3 times a week Precautions and Weightbearing Status:Fall OT Existing Precautions/Restrictions: fall No critical lines at this time Patient Safety Communication Prior to Visit: Nursing Subjective: Pt supine with family at bed side. Required max coaching for visual scanning left using compensatory head turn. 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 Daughter is a teacher and she has the summer off. 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 IADL History IADLs: independent Primary Language: [place]an Home Management Skills: independent Medication Management: independent Meal Prep Responsibility: Secondary Laundry Responsibility: Secondary IADL Comments: Indep with all IADL's/driving Objective/Observation: Vitals/Vitals Responses to Treatment: VSS O2 Device: room air Vision Screen Currently wearing corrective lenses: No Clinical Observations: L homonymous Hemianopsia Visual Impairments Observed?: Yes Confrontation Visual Field - Left: Deficits observed in left upper quadrant, Deficits observed in left lower quadrant Further vestibular assessment recommended: Yes Speech Speech: no gross deficits noted Successful Methods (Communication Strategies): verbal speech Hearing Hearing: no gross deficits noted Cognition Overall Cognitive Status: (at risk) Arousal/Alertness: Appropriate responses to stimuli Orientation Level: Oriented X4 Following Commands: Follows all commands and directions without difficulty Safety Judgment: Decreased awareness of need for assistance Awareness of Errors: Assistance required to correct errors made Deficits: Decreased awareness of deficits Attention Span: Difficulty dividing attention Memory: Decreased short term memory Problem Solving: Assistance required to identify errors made, Assistance required to generate solutions Cognition Comments: Fair processing speed ADLs assessment: ADL Assessment: Bathing Deficit, Toileting Deficit Eating Assistance: Set up supervision Eating Location: chair Eating Deficit: Increased time to complete Eating Skilled Rationale (Verbal/Tactile/Visual/Demonstrat ion): Visual scanning and environmental awareness, Supervision, Setup Grooming Assistance: Stand by Grooming Location: standing at sink Grooming Deficit: Increased time to complete Grooming Skilled Rationale (Verbal/Tactile/Visual/Demonstrat ion): Visual scanning and environmental awareness, Supervision, Setup Bathing Assistance: Modified independent Bathing Location: seated in chair Bathing Deficit: Increased time to complete Bathing Skilled Rationale (Verbal/Tactile/Visual/Demonstrat ion): Setup, Supervision, Visual scanning and environmental awareness UE Dressing Assistance: Independent UE Dressing Location: edge of bed LE Dressing Assistance: Set up supervision LE Dressing Location: edge of bed LE Dressing Deficit: Don/doff R sock, Don/doff L sock, Increased time to complete LE Dressing Skilled Rationale (Verbal/Tactile/Visual/Demonstrat ion): Visual scanning and environmental awareness Toilet Assistance: Stand by Toileting Location: toilet Toileting Deficit: Increased time to complete Toilet Skilled Rationale (Verbal/Tactile/Visual/Demonstrat ion): Cues for increased safety, Visual scanning and environmental awareness Extremity Assessments: RUE Assessment RUE Assessment: AROM WFL, Strength WFL, Tone WFL LUE Assessment LUE Assessment: AROM WFL, Tone WFL Left UE Assessment Details: MMT composite grasp 4-/5 Balance: Sitting Balance Static Sitting-Level of Assistance: Independent Dynamic Sitting-Level of Assistance: Standby Skilled Rationale: Hand placement, Verbal cues Standing Balance Static Standing-Level of Assistance: Stand-by assist Dynamic Standing-Level of Assistance: Contact guard Standing-Balance Support: Gait belt Skilled Rationale: Full extension to upright positioning/posture, Upright gaze/neck extension, Verbal cues Standing Balance Skilled Intervention/Details: Cues for visual attention/scanning left Neuro: Sensation Overall Sensation: Impaired Light Touch: Diminished, Left, Upper extremity Sharp/Dull: Intact Localization: Inconsistent, Left, Upper extremity Stereognosis: Partial deficits in the LUE Temperature: Diminished, Left, Upper extremity Sensation Comments: Reports numbness/tingling left Proprioception Proprioception: intact Gross Coordination Gross Coordination: bilat UE intact Fine Motor Coordination Additional Documentation: Yes Fine Motor Coordination Left Hand, Finger To Nose: mild impairment Right Hand, Finger To Nose: normal performance Left Hand Thumb/Finger Opposition Skills: mild impairment Right Hand Thumb/Finger Opposition Skills: normal performance Left Hand, Manipulation of Objects: mild impairment Right Hand, Manipulation of Objects: normal performance Skin and Edema: Skin Integrity Skin Integrity Description: WFL Edema Edema: none noted Mobility Assessment: Supine to Sit Mobility [place] Level: Supine->Sit: supervision Bed Features/Set-up: Supine->Sit: Head of bed elevated Skilled Rationale: Verbal cues, Cues for increased safety Skilled Intervention/Details: Supine->Sit: use for scanning left Transfer Assessment: Sit to Stand Transfer [place] Level: Sit->Stand: contact guard assist Physical Assist: Sit->Stand: (1 person) Assistive Device: Sit->Stand: gait belt Skilled Rationale: Verbal cues, Hand placement, Technique of activity, Cues for increased safety Skilled Intervention/Details: Sit->Stand: Cues to assess/scan environment Stand to Sit Transfer [place] Level: Stand->Sit: contact guard assist Physical Assist: Stand->Sit: (1 person) Assistive Device: Stand->Sit: gait belt, armed chair Skilled Rationale: Positioning, Hand placement, Verbal cues, Cues for increased safety Skilled Intervention/Details: Stand->Sit: Cues for visual scanning and proximity to chair Toilet Transfer [place] Level: Toilet: stand-by assist Assistive Device: Toilet: gait belt, grab bars Skilled Rationale: Verbal cues, Technique of activity, Cues for increased safety Skilled Intervention/Details: Toilet: Cues to use visual compensatory strategies Functional Mobility: Functional Mobility [place] Level: Functional Mobility/Gait: contact guard assist Physical Assist: Functional Mobility/Gait: (1 person) Assistive Device: Functional Mobility/Gait: gait belt Functional Mobility Distance: Distance needed to access restroom, Distance needed for common household mobility Ambulation Distance (Feet): 100 Functional Mobility Deficits: Vision, Balance Functional Mobility Skilled Rationale: Cues for increased safety, Proper pacing, Upright gaze/neck extension, Verbal cues, Visual scanning and environmental awareness Skilled Intervention/Details - Functional Mobility/Gait: Max coaching for safe navigation dn visual scanning environment due to left field deficits Outcome Score(s): Fugl-May Assessment of Physical Performance Fugl-May Selection of Upper Extremity: Left Left Flexor synergy (out of 12): 12 Left Extensor synergy (out of 6): 6 Left Volitional movement mixing synergies (out of 6) : 6 Left Volitional Movement with little or no synergy (out of 6): 6 Left Wrist (out of 10): 10 Left Hand (out of 14): 12 Left Coordination/Speed (out of 6): 5 LUE Fugl-May Score (out of 60): 57 CURRENT AM-[facility] Daily Activity Inpatient Short Form Putting on/Taking Off Lower Body Clothin - A Little Assistance Bathin - A Little Assistance Toiletin - A Little Assistance Putting on/Taking Off Upper Body Clothin - A Little Assistance Groomin - A Little Assistance Eatin - A Little Assistance CURRENT AM-PAC Activity Raw Score: 18 CURRENT AM-PAC Activity Functional Limitation/Modifier: 46.65% Currently Impaired in Daily Activity - CK Interventions: Intervention 1 Intervention Name: Education on visual compensatory strategies Details: Pt and family (spouse/daughter) Educated in methods to train patient to scan environment and use compensatory strategies to promote independence and safety during ADL and house hold navigation. Provided mobility-ADL related education including fall precautions associated with current visual deficits (left Hemianopsia) to promote safe mobility and self care performance. Assessment & Plan: Lc Santiago is a 61 y.o. male with a history of RA on methotrexate, HTN, HLD, T2DM who on 09/16 developed symptoms of L hemianopsia and L sided numbness. LKW: 09/16 Patient was admitted for stroke alert and seen for therapy evaluation related to left hemianopsia and left numbness impacting safe mobility, transfers and ADL performance. Exam findings include impairments in: balance, vision. These impairments contribute to occupational performance limitations including bathing, dressing, functional mobility, ADL transfers, work/school integration, home management tasks, shopping/errands, driving/transportation. The following factors impact the plan of care: Vision deficits Patient will benefit from skilled occupational therapy to address these impairments, occupational performance limitations, and participation restrictions. Patient's rehab potential is: good, to achieve stated therapy goals. Planned Therapy Interventions (OT Eval): ADL retraining, IADL retraining, balance training Patient Instruction/Education this session: Patient Instruction: Role of OT/plan of care. OT provided formal education to pt and pt's spouse & daughter regarding discharge recommendations & techniques for safe/efficient performance of functional transfers/activities with current deficits. Specifically, therapist provided education on the following topics: 1. Use of shower seat and set-up/supervision level of care with bathing for fall prevention 2. Direct supervision/assist with medication and money management 3. Home discharge planning including environment modification, removing throw rugs and other tripping hazards, modifying home ADL techniques to maximize safe modified independence 4. Discussed in length safety due to pt's visual deficits (left hemianopsia) impacting pts ability to safely and properly read medication labels, documents. It further impacts his ability for safely completing ADL/IADL tasks such as cooking with a hot stove, completing laundry, bathing, dressing, etc. Education provided in Verbal and Demonstration format, and demonstration of understanding with teach back of education and appropriate follow-up questions. All questions answered. Plan for next session: Vision scanning (compensatory strategies)/Modified ADL's Acute OT Goals Plan of Care by Briana Murry OT at 09/23/2022 9:43 AM Version 1 of 1 Problem: OT - ADLs Goal: Toileting Description: Pt will navigate to bathroom & complete toileting task including clothing management with supervision and standby assistance for improved ability to safely complete self-care activities. Outcome: Ongoing Goal: Bathing Description: Pt will perform full body bathing/dressing routine with modified independence and supervision while seated for improved ability to complete self-care activities. Outcome: Ongoing Problem: OT - Visual Scanning Goal: Visual Scanning Functional Mobility Description: Pt will use appropriate visual scanning techniques with supervision and standby assistance 100% of the time during functional mobility to promote safety and success during daily routine. Outcome: Ongoing Goal: Visual Scanning ADL Description: Pt will employ use of visual compensatory strategies with less than 30% cues to increase participation and safety in ADLs. Outcome: Ongoing OT treatment consisted of the following to work and progress towards the above goal(s): OT Evaluation and Treatment Time OT Evaluation (Moderate) Time Entry: 30 Therapeutic Activity Time Entry: 11 Evaluating Therapist: Briana Murry OT Additional Details: Co-evaluation/co-treatment performed?: Yes, simultaneous billable skilled care This co-evaluation session performed between OT and PT was beneficial, necessary and provided distinct services in establishing this person's individual plan of care. Medical complexity with functional deficits necessitated two skilled therapy disciplines working concurrently to determine each discipline's goals. This co-treatment was medically necessary due to patient's: initial safe mobilization assessment I used facemask, protective eye shield, and gloves in today's patient interaction. OT Evaluation Complexity Occupational Profile and Client History: Moderate - expanded history Assessment of Occupational Performance: Moderate (3-5 performance deficits) Clinical Decision/Performance Deficits: Moderate (detailed assessments w/several treatment options) Time In: 901 Time Out: 942 Total Visit Time: 41 minutes Total Treatment Time (skilled, billable minutes): 41 minutes Patient location at end of session: chair Alarms on at end of session: family visiting Needs in reach. Upon discontinuation of Acute Care Occupational Therapy Services or patient discharge from the hospital this note represents the current Occupational Therapy Discharge Summary. Acute Physical Therapy Evaluation Prior to Admission AMPA score(s): PRIOR LEVEL AM-PAC Mobility Raw Score: 24 Current AM-PAC score(s): CURRENT AM-PAC Mobility Raw Score: 19 Based on the above AM-PAC score(s) and PT clinical judgment, patient is a good candidate for discharge to Home with Outpatient Rehab Services Barriers to discharge home: None Mobility equipment available at home: none used ADL equipment available at home: none Equipment needed for discharge: none Current therapy frequency recommendation in acute: Therapy Frequency: 5 times a week Precautions and Weightbearing Status: Existing Precautions/Restrictions: fall No critical lines at this time Patient Safety Communication Prior to Visit: Nursing Subjective: Pt able to state the names of his and daughter. Pt agreeable to therapy. 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 Daughter is a teacher and she has the summer off. 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 Objective/Observation: Vitals/Vitals Responses to Treatment: Patient Vitals for the past 2 hrs: Pulse Heart Rate Source Resp BP MAP (mmHg) BP Method BP Location BP Position 09/23/22 0910 97 -- (!) 31 -- -- -- -- -- 09/23/22 0915 97 -- 19 (!) 181/147 (!) 158 mmHg -- -- -- 09/23/22 0919 94 Monitor 18 (!) 157/96 (!) 119 mmHg Automatic Left arm Sitting 09/23/22 0920 93 -- 21 (!) 157/96 (!) 119 mmHg Automatic Left arm Sitting 09/23/22 0930 105 -- -- (!) 158/101 (!) 123 mmHg -- -- -- O2 Device: room air Cognition Overall Cognitive Status: Impaired Arousal/Alertness: Appropriate responses to stimuli Orientation Level: Oriented X4 Following Commands: Follows one step commands without difficulty Safety Judgment: Decreased awareness of need for safety Awareness of Errors: Assistance required to identify errors made, Assistance required to correct errors made, Decreased awareness of errors Deficits: Decreased awareness of deficits Vision Screen Currently wearing corrective lenses: No Visual Impairments Observed?: Yes Confrontation Visual Field - Left: (decreased L visual field) Speech Speech: no gross deficits noted Hearing Hearing: no gross deficits noted Extremity Assessments: RLE Assessment RLE Assessment: Within Functional Limits LLE Assessment LLE Assessment: Within Functional Limits Sensation Overall Sensation: Impaired Light Touch: Diminished, Left, Lower extremity (on the lateral border on the L foot) Sensation Comments: Nunbness and tinggling from Left knee to Left toes Mobility Assessment: Supine to Sit Mobility [place] Level: Supine->Sit: supervision Bed Features/Set-up: Supine->Sit: Head of bed elevated Skilled Rationale: Positioning, Sequencing, Hand placement, Verbal cues, Cues for increased safety Balance: Sitting Balance Static Sitting-Level of Assistance: Supervision Dynamic Sitting-Level of Assistance: Standby Skilled Rationale: Positioning, Sequencing, Hand placement, Verbal cues, Cues for increased safety Sitting Balance Skilled Intervention/Details: pt sat EOB ~4 min without LOB Standing Balance Static Standing-Level of Assistance: Stand-by assist Dynamic Standing-Level of Assistance: Contact guard Standing-Balance Support: Gait belt Skilled Rationale: Positioning, Sequencing, Hand placement, Verbal cues, Cues for increased safety Transfer Assessment: Sit to Stand Transfer [place] Level: Sit->Stand: contact guard assist Assistive Device: Sit->Stand: gait belt Skilled Rationale: Positioning, Hand placement, Sequencing, Verbal cues, Cues for increased safety Stand to Sit Transfer [place] Level: Stand->Sit: contact guard assist Assistive Device: Stand->Sit: gait belt Skilled Rationale: Positioning, Sequencing, Hand placement, Verbal cues, Cues for increased safety Skilled Intervention/Details: Stand->Sit: Cueing on slow movement to promote safety Gait/Functional Mobility: Gait Assessment [place] Level: Gait: contact guard assist Assistive Device: Gait: gait belt Ambulation Distance (Feet): 150 (x2) Gait Deviations Identified: left, decreased ivon, decreased gait speed, path deviation Gait Skilled Rationale: verbal, tactile, upright posture, increase step length, increase step width, safety to avoid obstacles Skilled Intervention/Details - Gait: Pt ambulated 150ft x2 with CGA without LOB. Cueing on visual scanning to his left to compensate his left visual loss and to increase safety awareness during gait. Pt was able to carry on the left visual scanning throughout the session and cues were faded. Intermittent verbal cues were provided to correct his left drifted path. Stairs: Stairs Assessment [place] Level: Stair Negotiation: contact guard assist Assistive Device: Stair Negotiation: gait belt, right rail (ascending), left rail (ascending) Number of stairs: a flight of stairs Stairs Skilled Rationale: verbal, tactile, demonstration, reciprocal pattern Skilled Intervention/Details - Stairs: Pt able to negotiate a flight of stairs, CGA and railing on boh side, without LOB. Verbal cues were provided on foot placement on the steps to promote safety. Cueing on visual scanning to his left to increase his awareness to environment Outcome Score(s): CURRENT AM-PAC Basic Mobility Inpatient Short Form Turning over in bed: 4 - No Assistance Sitting/standing from chair: 3 - A Little Assistance Moving from lying on back to sittin - A Little Assistance Moving to and from bed to chair: 3 - A Little Assistance Walk in hospital room: 3 - A Little Assistance Climbing 3-5 steps with a railin - A Little Assistance CURRENT AM-[facility] Mobility Raw Score: 19 CURRENT AM-[facility] Mobility Functional Limitation/Modifier: 41.77% Currently Impaired in Basic Mobility - CK Assessment & Plan: Patient was admitted for stroke in occipital lobe in R thalamus and L occipital lobe resulting L hemianopsia and L sided numbness and seen for therapy evaluation related to impaired mobility d/t stroke. Exam findings include impairments in: Vision, Sensation, Gait/Locomotion, Aerobic capacity/endurance. These impairments contribute to functional limitations including Decreased ambulation distance/endurance, Increased fall risk, Decreased functional mobility. Current clinical presentation is Stable - unchanging or predictable (Low). Patient history factors impacting Plan Of Care include Past Medical History: Diagnosis Date Diabetes mellitus Essential hypertension, benign Hyperlipidemia TIA (transient ischemic attack) . Patient will benefit from skilled physical therapy to address these impairments, functional limitations, and participation restrictions and has good rehab potential to achieve therapy goals. Patient Instruction/Education this session: Patient, Spouse and daughter provided stroke specific education on Discharge recommendations, Recommended caregiver assist levels for safe transfers/functional mobility and Visual scanning techniques . Education provided in Verbal and Demonstration format, and demonstration of understanding with appropriate follow-up questions and report of no further education needed. All questions answered. Plan for next session: progress ambulation and environment navigation with visual scanning Goals: Patient will demonstrate independence with bed mobility Patient will be independently with sit/stand without a device Patient will ambulate 300' independently without device and be able to navigate doorways without running into left side. (progressing) Patient will ascend/descend 13 stairs with railing independently PT treatment consisted of the following to progress towards the above goal(s): PT Evaluation and Treatment Time PT Evaluation (Moderate) Time Entry: 15 Gait Training Time Entry: 15 Evaluating Therapist: Cielo Ba Additional Details: Co-evaluation/co-treatment performed?: Yes, simultaneous billable skilled care This co-evaluation session performed between PT and OT was beneficial, necessary and provided distinct services in establishing this person's individual plan of care. Medical complexity with functional deficits necessitated two skilled therapy disciplines working concurrently to determine each discipline's goals. This co-treatment was medically necessary due to patient's: Postural control I was assisted by YEMI Mercado for today's session. and I used gloves and facemask in today's patient interaction. Evaluation Complexity Components History: Moderate (1-2 personal factors and/or comorbidities) Body Systems Review: Moderate (Addressing a total of 3 or more elements) Clinical Presentation: Stable - unchanging or predictable (Low) Clinical Decision Making: Moderate Time In: 0910 Time Out: 0940 Total Visit Time: 30 minutes Total Treatment Time (skilled, billable minutes): 30 minutes Patient location at end of session: chair Alarms on at end of session: none Needs in reach. Upon discontinuation of Acute Care Physical Therapy Services or patient discharge from the hospital this note represents the current Physical Therapy Discharge Summary. Associated attestation - Jess Sanchez PT - 09/23/2022 3:35 PM EDT This note was reviewed and edited as needed to better reflect the patient's clinical status and the treatment plan Jess Sanchez PT, DPT License #: [id number] Pager #: [phone] Discharge Planning Patient Assessment Admission Assessment Patient Assessment Completed: Initial Anticipated discharge disposition: Home Reason for Admission: stroke Is the patient able to participate in the assessment?: Yes Information source: Patient, Spouse Information Source Name/Contact: Carin Santiago [phone] Demographics Verified and Updated: Yes Has the patient been admitted to any hospital in the last 30 days?: Transferred From Outside Hospital Advanced Care Planning Has the patient completed Advance Directives?: Completed, Not Available in Medical Record Copy of Advance Directives was requested?: Yes (family states PCP was just given documentation on 09/20/22; do not have it on them) Advance Directives Requested From: family (documentation given to PCP on 09/20/22; family does not currently have them) Legal Next of Kin Does the patient have a Guardian?: No Spouse: Yes Name and Contact information: Carin Santiago [phone] Adult Child(charanjit), List All Adult Children: Yes Name and Contact information: Opal Reese [phone] Would you like to add additional adult children?: No Patient Reports No Relatives by Blood or Adoption.: No Referral to Social Work to Identify Legal Next of Kin?: No Reviewed and Updated in Demographics? : Yes Outpatient Providers Does patient have a primary care physician? : Yes When was the patient's last PCP visit?: < 30 days Does the patient follow any specialists?: Yes ([facility] - [place], [place]) Reviewed and updated Care Team?: Yes Patient Care Team: Edvin Polanco MD as PCP - General (Family Medicine) Environment/Caregivers Is the patient from a facility or detention?: No Patient lives with: Spouse or Partner Living Environment: House How many steps does the patient have to navigate to enter or inside the home? : 3 Does the patient have a first floor set-up with bed and bathroom?: Yes Patient Caregiving Responsibilities: Self Patient-identified caregiver/support network: Family Who does the patient identify as a teachable caregiver(s)?: Spouse or Partner, Child(charanjit) - Independent Services Does the patient use a home health or hospice agency?: No Current with dialysis?: No Does the patient use any community programs or services?: No Does patient use DME? : none Does the patient use oxygen?: No Does patient use medical supplies? : none Anticipated Changes Related to Illness/Injury? : Unknown at this time Initial ADLs Prior to Arrival What is the patient's baseline physical functioning prior to this acute illness?: independent What is the patient's baseline cognitive functioning prior to this acute illness?: independent Is the patient's baseline functioning changed by this acute illness? : No Concerns with patient being able to care for themselves at home? : Unable to assess Are there therapy or specialists consults?: Yes Select consult type: PT, OT, ETCHER APPRENTICE Does the patient's home require any home modifications for discharge? : Unknown at this time CM to recommend therapy or other consults? : No Medication Management Does the patient have prescription insurance coverage? : Yes Is the patient on Anticoagulation? : No [id number] [place] [address] - [address] [place] [address]. [address] [address] [address] Does the patient or personnel representative express financial concerns? : No Employed?: Yes Coping/Stress Concerns about patient s coping and stress?: No Concerns about patient s caregiver s coping and stress?: No Values and Beliefs Cultural or bahai practices that may impact discharge planning and/or medical care?: No Initial Discharge Planning Anticipated discharge disposition: Home Transportation Available for Discharge: Private Vehicle, Family or Friend Anticipated DME: unknown at this time Anticipated Services at Discharge: Other (comment) (unknown; awaiting PT) Patient Assessment Completed: Initial Risk of Readmission: 3.1 Category Reference: High:16-100 Mod-High:10-16 Mod-Low: 5-10 Low: 0-5 Expected Discharge Date: 09/24/2022 Discharge Planning Summary Per FACILITY SUPERVISOR notes, home. Awaiting PT/OT eval. and recs. Doreen JACKSON, RN Clinical Clinical Assoc Department of Pharmacy Anticoagulant Progress Note Patient: Ari Santiago Room/Bed: E026/E026 Assessment/Plan: Patient's current weight is 98.3kg, BMI of ~31.6 kg/m2 using previously documented height of 176.5cm, and estimated creatinine clearance of 123 mL/min. Based on this, I have changed the enoxaparin subcutaneous dose to 40 mg every 24 hours. Name: Jag Ocasio RPH Phone: [phone] Date/Time: 09/21/2022 5:35 PM documented in this encounter [facility] 09-23-2022 Plan of care note Problem: OT - ADLs Goal: Toileting Description: Pt will navigate to bathroom & complete toileting task including clothing management with supervision and standby assistance for improved ability to safely complete self-care activities. Outcome: Ongoing Goal: Bathing Description: Pt will perform full body bathing/dressing routine with modified independence and supervision while seated for improved ability to complete self-care activities. Outcome: Ongoing Problem: OT - Visual Scanning Goal: Visual Scanning Functional Mobility Description: Pt will use appropriate visual scanning techniques with supervision and standby assistance 100% of the time during functional mobility to promote safety and success during daily routine. Outcome: Ongoing Goal: Visual Scanning ADL Description: Pt will employ use of visual compensatory strategies with less than 30% cues to increase participation and safety in ADLs. Outcome: Ongoing [facility] 09-23-2022 Plan of care note Problem: Patient Care Overview Goal: Plan of Care Review Outcome: Met This Shift Goal: Interdisciplinary Rounds/Family Conf Outcome: Met This Shift Problem: Patient Care Overview Goal: Individualization & Mutuality Outcome: Ongoing Problem: Stroke (Ischemic) (Adult) Goal: Signs and Symptoms of Listed Potential Problems Will be Absent, Minimized or Managed (Stroke) Description: Signs and symptoms of listed potential problems will be absent, minimized or managed by discharge/transition of care (reference Stroke (Ischemic) (Adult) CPG). Outcome: Ongoing Problem: Patient Care Overview Goal: Discharge Needs Assessment Outcome: Progressing Toward Goal [facility] 09-22-2022 Nurse Note Patient receiving class B hazardous medication. All precautions observed. Sign hung in room. Patient & family educated on keeping toilet covered & flushing twice after voiding. Patient & family verbalized understanding. [facility] 09-22-2022 Hospital Discharg e instructions James Ward, DOUGH PANNER-REINFORCING STEEL ERECTOR - 09/22/2022 7:16 AM EDT Please take these discharge instructions to your primary care doctor follow appointment to show them,keep them for your reference and refer to them often for follow up appointments.It is best to write your appointments on a personal calendar so you do not miss them,call if you need to change any appointments please. Education: What are the most common symptoms of stroke? The following are the most common symptoms of stroke. However, each individual may experience symptoms differently. If any of these symptoms are present, call 911 (or your local ambulance service) immediately. Treatment is most effective when started immediately. Symptoms may be sudden and include: -Weakness or numbness of the face, arm, or leg, especially on one side of the body -Confusion or difficulty speaking or understanding -Problems with vision such as dimness or loss of vision in one or both eyes -Dizziness or problems with balance or coordination -Problems with movement or walking -Severe headaches with no other known cause, especially if sudden onset All of the above warning signs may not occur with each stroke. Do not ignore any of the warning signs, even if they go away - take action immediately. The symptoms of stroke may resemble other medical conditions or problems. Always consult your physician for a diagnosis We have provided both written and verbal education to the patient and family regarding ischemic and hemorrhagic strokes. We have discussed the warning signs/symptoms as well as causes of stroke. We have discussed the importance of activating 911/EMS in the event of these symptoms. We have reviewed the patient's personal risk factors as well as education on reducing these risk factors. [facility] Personalized Stroke Treatment Plan My Stroke Type: [x] Ischemic Stroke (Blockage of blood flow to the brain) [] Hemorrhagic Stroke (Bleeding in the brain) [] TIA- Transient Ischemic Attack (mini-stroke) My Risk Factors Include: [x] High Blood Pressure [x] Diabetes [x] High Cholesterol [] Heart Disease [] Atrial Fibrillation (Irregular Heart Rate) [] Smoking [x] Obesity [] Clotting Disorder [] Alcohol Abuse [] Drug Abuse [] Prior History [] Family History [] Obstructive Sleep Apnea My Follow-Up Treatment Goals: [x] Blood Pressure < 140/90 [] Stop Smoking Immediately [x] LDL < 70 [x] HgA1C levels <7% [x] Decrease BMI to <25 [x] Take all ordered medications [x] Avoid non-prescription or over the counter medication not cleared by your physician [x] Limit Alcohol use to no more than 1 drink per day for females and 2 drinks per day for males [x] Do not drive until cleared [x] Follow up with PCP within a week of discharge to home [x] Follow-up with Neurovascular [x] Follow-up with Occupational,physical and speech therapy if ordered [x] Watch out for depression and seek treatment if needed CONTACTS FOR NEUROVASCULAR SERVICE: - You may call your neurovascular doctors office at [phone], if you have questions between 8:30 am and 4:30 pm. - For off hours or the weekend you may call the office or the hospital marsh buggy operator at and ask for the stroke resident economics analyst to be paged. - If you have any questions or needs, please call Nupur Bobby RN, stroke program director at [phone] Mon-Fri from 7-3 ? Any questions concerning your discharge instructions please call Case Management Office [phone] Patient Stroke Resources: [facility] Stroke Support [facility] Stroke Support Group is for stroke survivors, friends, and family members. Meets every Friday from 12:00PM to 1:00PM at [facility]), [address] [place] [address] Erika Rosales, at [phone]. If you are outside of the [facility], contact The [employer] at www.strokeassociation.org or 5-039-7-stroke, or for supports groups in your area. Also refer to the Stroke Education booklet you received as part of your stroke education while you were a patient for additional resources Additional Contacts: Evening and Weekend Contacts If you have questions or concerns during evening, weekend, or holiday hours, please call: -[facility] and [facility] marsh buggy operator at [phone]. -[facility] marsh buggy operator at [phone] Ask the marsh buggy operator to page the on-call doctor for Neurovascular service, they were responsible for your care while you were in the hospital. If you having an emergency, call 911. *In the event of an Emergency: If you have a physical or psychiatric emergency call 911 or go to your local emergency department. You should also call your outpatient provider's emergency number. Other reference numbers: [facility] Intake Office at 538-808-1254; [facility] at [phone]; or Suicide Prevention Hotline at 664-655-0312. *Helpful phone numbers: Free Crisis Hotline: 5-095-169-TALK ( ) Suicide Hotline: 555.494.6818 Seniors Suicide Hotline: 760.308.6041 [facility]: [phone] Mental Health of [place]: 388.456.2421 (free counseling) [employer] Access Hotline: 820-729-TQVZ (182-299-1215) 24-hour crisis text hotline: Text the word 4hope to 512-520 for crisis support. Texting this number is free if you have Verizon, [employer], [employer] or Sprint. [facility] Financial Assistance: If you want to learn more about these programs, please call .There are three programs to help you with the cost of your medical care: Medicaid, Hospital Care Assurance Program (HCAP) & elin If you are without Insurance and believe you may qualify for Medicaid/public assistance: The [facility] can now process alanis (TANF), food (SNAP) and Medicaid Applications over the phone. Please call 3-327-526[facility] (7568) and apply over the phone or apply online at www.benefits.[place].gov. Friday-Friday 8am-12pm noon. Medication Assistance Programs [place] [employer] members can buy 100+ common prescriptions for FREE, $3 or $6. Annual membership is $36 for individuals and $72 for families (up to 6 people, including pets). Sign up online or enroll at your nearest pharmacy! -[employer], web site can provide a significant number of coupons for medications at a much lower petit. OLIVER To - 09/22/2022 7:16 AM EDT Know your medicines Make sure you know why you are taking each medicine. Make a master list of all your medicines. Write down the medicine names and doctors' names. Include doses and side effects too. And write down why you take each medicine. Include all prescription and qofq-drb-mrkogop medicines, vitamins, and supplements. Keep this list up to date. Take a copy to each doctor visit. Know when you will run out of each medicine. Ask your pharmacist if there are ways the drugstore can remind you to refill your medicines so you do not run out. Write refill reminders on your calendar. Don't wait until you have a few pills left. Ask your pharmacist to plan your refills so that you can turkey picker all your medicines at the same time. This can mean fewer trips to the drugstore. If we have prescribed you a new medication during your stay, please contact with your primary physician for refills OLIVER To - 09/22/2022 7:16 AM EDT Activity -- Please follow these instructions: -Advance your activity as you can tolerate - You may walk all you want. You may go up and down the steps. Use the railing for support - It is normal for your energy level and sleep patterns to change after a stroke - Take rest periods during the day as needed - Complete recovery may take several weeks, months, up to a year. Patience is andrews. OLIVER To - 09/22/2022 7:16 AM EDT Current Diet Orders Procedures DIET CARB CONTROLLED Standing Status: Standing Number of Occurrences: 1 OLIVER To - 09/22/2022 7:16 AM EDT Notify Your Doctor if you have any of the following: NEUROLOGICAL CHANGES-- Change in alertness Increased sleepiness Nausea and vomiting New onset of numbness or weakness in arms or legs New problems with your bowels or bladder New or worse problems with balance or walking Seizures, new or worsening UNRELIEVED HEADACHE PAIN-- New or increased pain unrelieved with pain medications Pain associated with nausea and vomiting Pain associated with other symptoms QUESTIONS OR PROBLEMS-- Any questions or problems that you are unsure about Deep Vein Thrombosis Symptoms Call your doctor or nurse right away if you have any signs of blood clots such as -Tender, swollen or reddened areas anywhere in your leg. -Numbness or tingling in your lower leg or calf, or at the top of your leg or groin -Skin on you leg looks pale or blue or feels cold to touch -Chest pain or have trouble breathing -Fever or chills documented in this encounter [facility] 09-21-2022 Emergency department Note Report called to [facility]. Pt transported to room 10[facility] Emergency department Note Report called to [facility]. Pt transported to room 1082 with all belongings Attempted to call report to [facility]. Oncoming RN may call for report Received report on patient. A&Ox4, answering questions appropriately, and following commands. NIH as documented in flowsheets. States numbness in L hand is Better than it was . Resting in bed on monitor. Family at bedside. Call light provided Signout: Ari Santiago is a 61 y.o. male with a chief complaint of No chief complaint on file. received in sign-out. For a detailed history & physical please see the original ED Provider Note by the resident. Vitals: 09/21/22 1330 09/21/22 1400 09/21/22 1410 09/21/22 1415 BP: 119/68 119/68 Pulse: 79 90 78 81 Resp: 12 16 15 14 Temp: TempSrc: SpO2: 94% 98% 96% 97% ED Course as of 09/21/22 1554 Sat Sep 21, 2022 1507 SO - transfer for stroke. OSH obtained CTH. L sided hemianopsia. L sided discoordination and paresthesias. Admitted to neurovasc 1553 Called to the bedside due to concerns for worsening LUE weakness and paresthesias. NIH 5. Neurovasc team informed. Will replace IV and obtain CTA stat Pending labs/images/consults: 1. CTA brain/neck The expected disposition is: admit to neurovasc PCU Jennifer Bah MD Resident 09/21/22 1555 Images from the original note were not included. ED STAFFING NOTE CHIEF COMPLAINT No chief complaint on file. HPI Lc Santiago is a 61 y.o. male who presents as routine neurovascular consult for stroke. He had been previously seen at OSH on 09/16/22 with visual disturbance, headache, and facial droop/numbness and discharged after MRI being reassuring and symptoms started to resolve, though he reports he did have some residual facial numbness. He saw ophtho who was concerned by his eye exam that there was a stroke. Reports 11pm on 09/21/22 developed worsening facial numbness which spread to the left arm/leg, dizziness. Presented back to OSH and noted to have acute stroke and transferred. Reports headache improved. Denies chest pain, shortness of breath, fever, trauma Per transfer note: Clinical reason for transfer: Neuro evaluation. HPI: Patient presented 09/16 and was a stroke alert. Had left facial droop, visual loss in left eye. Full stroke work up completed and started on aspirin, amlodpine daily and was discharged. Patient presented again with headache and pressure behind his eye along with elevated blood pressure. Patient saw optho outpatient and despite his MRI being normal they said he had a stroke based on their findings in his left eye. PCP sent him back to the ED to determine if he needs another MRI. Family concerned for absent seizures throughout the day. Family wants evaluated for seizures but [facility] does not have EEG. Family reports that he just stops and stares. New mild tingling in arm and leg that started sometime yesterday. Patient has some confusion as well. VS: 140/90 86 18 97.9 94% on RA Pertinent Labs, EKG and images: MRI- negative. Labs pending. Call from ED [phone] Entered By: Jacinda Quintana RN Called to update that Radiology called to report new stroke in occipital lobe in R thalamus and L occipital lobe as well. Connected with Dr. Camargo via telephone conference call. No change in plan. Past Medical History: Diagnosis Date Diabetes mellitus Essential hypertension, benign Hyperlipidemia TIA (transient ischemic attack) No past surgical history on file. Review of systems including constitutional, skin, HEENT, eyes, CV, respiratory, GI, , MSK, endocrine, neurologic, psychiatric reviewed and negative except as noted above. PHYSICAL EXAM VITAL SIGNS: BP 152/90 Pulse 84 Temp 98.4 F (36.9 C) (Oral) Resp 14 SpO2 95% Constitutional: No acute distress. Non-toxic appearance. HENT: Atraumatic. Normocephalic. Phonation normal. Neck: Normal range of motion. Supple. Eyes: Conjunctiva normal. No discharge. PERRL Respiratory: No respiratory distress. No rales. No ronchi. No wheezes. No stridor. Normal air movement. Patient able to talk in full sentences. Cardiovascular: Regular rate and rhythm. No murmurs. No gallops. No rubs. GI: Non distended. Nontender. No rebound. No guarding. No masses. Musculoskeletal: Intact distal pulses. No edema. Integument: No erythema. No rash. No diaphoresis. No cyanosis. Neurologic: Alert & oriented x 3. Cranial nerves grossly intact. Psychiatric: Mood and affect are normal. Alert, awake and oriented x3. Speech is spontaneous with regular rate and rhythm and no dysarthria. Decreased left sided facial sensation, decreased sensation of the LUE and LLE. Comprehension and attention all intact. 5/5 strength in all extremities. Sensation otherwise intact to gross and light touch in all extremities. CN otherwise intact. Some LUE dysmetria. ED COURSE & MEDICAL DECISION MAKING On 09/21/2022 I saw and examined the patient. I discussed the history and examination with the resident/LUIZA and agree with the plan of care. DDx: acute CVA, TIA, dementia, stroke mimic: seizure, tumor, electrolyte abnormality, UTI Hemodynamically stable, afebrile. Exam with left sided numbness and some dysmetria of the LUE and hemianopsia. Otherwise neuro intact. Will obtain labs, EKG. Will consult neurovascular. Seen at OSH with concern for stroke per report on CT imaging. Anticipate admit. Update: Labs reassuring. Per neurovascular, admit to their service PCU. Robel Johansen MD Differential includes life-threatening causes as above. Medical Decision Making Amount and/or Complexity of Data Reviewed Independent Historian: Details: Family member External Data Reviewed: labs, radiology and notes. Labs: ordered. Decision-making details documented in ED Course. ECG/medicine tests: ordered. Discussion of management or test interpretation with external provider(s): Neurovascular Risk Decision regarding hospitalization. Medication list reviewed. I have personally seen and examined this patient. I have fully participated in the care of this patient. I have reviewed all pertinent clinical information, including history, physical exam and plan with the resident. Prior medical records were reviewed. All pertinent labs and imaging results were reviewed and interpreted by me. The patient was updated regarding findings, and was re-assessed during ED stay. Robel Johansen MD 09/21/22 1982 Robel Johansen MD 09/21/22 [id number] Per EMS report, pt into osh on Friday with stroke like symptoms, ct findings negative and pt kept for 24hour observation and discharged. On Friday he returned to ed for increasing headache and dizziness with no new diagnosis and discharged again. Pt seen by eye doctor on for decreased vision and determined to have had a cva to left eye due to loss of vision, pt returned to ed again today and was determined to have had an acute stroke that was misinterpreted by ct that was performed on Friday. [facility] EMERGENCY DEPARTMENT ENCOUNTER CHIEF CONCERN Transfer w/ concern for stroke HPI & REVIEW OF SYSTEMS Lc Magdalena Santiago is a 61 y.o. male patient with history of HTN, HLD, T2DM who presents as xfer from OSH after CT findings concerning for stroke. Per transfer note: Patient presented 09/16 and was a stroke alert. Had left facial droop, visual loss in left eye. Full stroke work up completed and started on aspirin, amlodpine daily and was discharged. Patient presented again with headache and pressure behind his eye along with elevated blood pressure. Patient saw optho outpatient and despite his MRI being normal they said he had a stroke based on their findings in his left eye. PCP sent him back to the ED to determine if he needs another MRI. Family concerned for absent seizures throughout the day. Family wants evaluated for seizures but [facility] does not have EEG. Family reports that he just stops and stares. CT today: Called to update that Radiology called to report new stroke in occipital lobe in R thalamus and L occipital lobe as well. Connected with Dr. Camargo via telephone conference call. No change in plan. Today is endorsing left-sided hemianopsia, left facial, arm,e diminished sensation. Reports noticed the sensation around 0 700 this morning so went to the local emergency department. He is denying fever, chills, shortness of breath, chest pain, palpitations, calf tenderness, swelling, abdominal pain LKW: L sensation deficiency onset 0700, 5 hours ago; L hemianopsia 3 days ago Blood thinners: none -Hx neurosurgery, head trauma or stroke in last 3 months? No -Uncontrolled HTN >185 mmHg SBP or > 110 mmHg DBP? No -History of intracranial hemorrhage? No -Known intracranial AV malformation, neoplasm, or aneurysm? No -Active internal bleeding? No -Suspected/confirmed endocarditis? No -Known bleeding diathesis, (plates <100k, heparin w/I 48h & elevated PTT, current use of anticoags?) No -blood glucose: 222 PAST MEDICAL HISTORY Past medical history: HTN, HLD, T2DM. Denies seizure, cancer, TBI history Past surgical history: has no past surgical history on file. Family history: family history is not on file. Social history: has no history on file for tobacco use, alcohol use, and drug use. MEDICATIONS. See chart. Reviewed. ALLERGIES has No Known Allergies. FOCUSED PERTINENT PHYSICAL EXAM Vital Signs:There were no vitals taken for this visit. Physical Exam Constitutional: Appearance: He is not ill-appearing. HENT: Head: Normocephalic and atraumatic. Mouth/Throat: Mouth: Mucous membranes are moist. Pharynx: No oropharyngeal exudate. Eyes: General: Visual field deficit (Left-sided hemianopsia) present. Extraocular Movements: Extraocular movements intact. Conjunctiva/sclera: Conjunctivae normal. Pupils: Pupils are equal, round, and reactive to light. Cardiovascular: Rate and Rhythm: Normal rate and regular rhythm. Pulses: Normal pulses. Pulmonary: Effort: Pulmonary effort is normal. No respiratory distress. Breath sounds: Normal breath sounds. Abdominal: Palpations: Abdomen is soft. Musculoskeletal: General: No tenderness. Cervical back: Normal range of motion. No tenderness. Right lower leg: No edema. Skin: General: Skin is warm and dry. Neurological: Mental Status: He is alert and oriented to person, place, and time. GCS: GCS eye subscore is 4. GCS verbal subscore is 5. GCS motor subscore is 6. Cranial Nerves: No dysarthria or facial asymmetry. Sensory: Sensory deficit (Endorses left-sided numbness however intact grossly to touch including extinction) present. Motor: Pronator drift (LUE) present. No weakness. Coordination: Coordination abnormal (L worse than R). Ykgygg-Ovvh-Alcjmc Test abnormal (L). Heel to Winter Test normal. Impaired rapid alternating movements (L worse than R). NIH 5 (L pronator drift, single limb ataxia, BL L hemianopsia) ASSESSMENT & PLAN ED COURSE & MEDICAL DECISION MAKING Brief Assessment: This a 61 y.o. male patient with PMHx of HTN, HLD, T2DM presenting with c/f stroke. Vitals upon arrival to ED WNL. Initial exam notable for NIH 5 (L pronator drift, single limb ataxia, BL L hemianopsia). The initial differential is stroke, TIA, hypoglycemia, migraine, GCA. Plan: With this differential in mind, initial testing and treatment plan comprises: Labs: chem, CBC, LFT Imaging: OSH completed CTH, MR stroke Consults: neurovasc Therapeutics: BP control Anticipated disposition: admit Medical Decision Making Medical Decision Making This is a 58-year-old gentleman transferred from outside hospital concern for ischemic stroke with left-sided hemianopsia that started several days ago, and left-sided sensation defect of left jaw, left arm, left leg that onset this morning. Initial neuro exam notable for NIH 5 (L pronator drift, L MILAN deficient, BL L hemianopsia). He will be admitted to the neurovascular service for additional workup and stabilization. Amount and/or Complexity of Data Reviewed Labs: ordered. Details: No significant leukocytosis, thrombocytosis, anemia Renal function largely within normal limits. ECG/medicine tests: ordered. Risk Decision regarding hospitalization. Impressions: Headache L hemianopsia Ischemic stroke Patient is in agreement with the above plan. I examined the patient myself and in conjunction with the attending and/or senior resident, ordered the above labs, therapeutics, and consultations. I staffed the patient with the attending physician and/or the senior resident. Pertinent chart review was performed. Our patient was reassessed throughout the ED encounter and any medically pertinent changes in patient's clinical condition are documented above. Deephti Yi MD Emergency Medicine PGY-1 [facility] Pager: [phone] Deepthi Yi MD Resident 09/21/22 1410 Bed: E026 Expected date: Expected time: Means of arrival: Comments: [facility]- Expected Reese documented in this encounter [facility] 09-21-2022 Emergency department Note Attempted to call report to [facility]. Oncoming RN may call [phone] for report [facility] 09-21-2022 Emergency department Note Received report on patient. A&Ox4, answering questions appropriately, and following commands. NIH as documented in flowsheets. States numbness in L hand is Better than it was . Resting in bed on monitor. Family at bedside. Call light provided [facility] 09-21-2022 Physician Emergency department Note Signout: Ari Santiago is a 61 y.o. male with a chief complaint of No chief complaint on file. received in sign-out. For a detailed history & physical please see the original ED Provider Note by the resident. Vitals: 09/21/22 1330 09/21/22 1400 09/21/22 1410 09/21/22 1415 BP: 119/68 119/68 Pulse: 79 90 78 81 Resp: 12 16 15 14 Temp: TempSrc: SpO2: 94% 98% 96% 97% ED Course as of 09/21/22 1554 Sat Sep 21, 2022 1507 SO - transfer for stroke. OSH obtained CTH. L sided hemianopsia. L sided discoordination and paresthesias. [facility] Called to the bedside due to concerns for worsening LUE weakness and paresthesias. NIH 5. Neurovasc team informed. Will replace IV and obtain CTA stat Pending labs/images/consults: 1. CTA brain/neck The expected disposition is: [facility] Jennifer Bah MD Resident 09/21/22 1555 [facility] Work Phone: 09-21-2022 Progress note Formatting of t his note might be different from the original. I certify that this patient requires inpatient services at this time. I anticipate the expected length of stay will include at least two midnights. Inpatient services are due to the following medical concerns stroke. Plans for post hospitalization care will be discharge to pending. [facility] 09-21-2022 Note Acute Coronary Syndr ome (ACS): Initial Evaluation and Management: [email or web address] [facility] 09-21-2022 Physician Emergency department Note Images from the original note were not included. ED STAFFING NOTE CHIEF COMPLAINT No chief complaint on file. HPI Lc Santiago is a 61 y.o. male who presents as routine neurovascular consult for stroke. He had been previously seen at OSH on 09/16/22 with visual disturbance, headache, and facial droop/numbness and discharged after MRI being reassuring and symptoms started to resolve, though he reports he did have some residual facial numbness. He saw ophtho who was concerned by his eye exam that there was a stroke. Reports 11pm on 09/21/22 developed worsening facial numbness which spread to the left arm/leg, dizziness. Presented back to OSH and noted to have acute stroke and transferred. Reports headache improved. Denies chest pain, shortness of breath, fever, trauma Per transfer note: Clinical reason for transfer: Neuro evaluation. HPI: Patient presented 09/16 and was a stroke alert. Had left facial droop, visual loss in left eye. Full stroke work up completed and started on aspirin, amlodpine daily and was discharged. Patient presented again with headache and pressure behind his eye along with elevated blood pressure. Patient saw optho outpatient and despite his MRI being normal they said he had a stroke based on their findings in his left eye. PCP sent him back to the ED to determine if he needs another MRI. Family concerned for absent seizures throughout the day. Family wants evaluated for seizures but [facility] does not have EEG. Family reports that he just stops and stares. New mild tingling in arm and leg that started sometime yesterday. Patient has some confusion as well. VS: 140/90 86 18 97.9 94% on RA Pertinent Labs, EKG and images: MRI- negative. Labs pending. Call from ED [phone] Entered By: Jacinda Quintana RN Called to update that Radiology called to report new stroke in occipital lobe in R thalamus and L occipital lobe as well. Connected with Dr. Camargo via telephone conference call. No change in plan. Past Medical History: Diagnosis Date Diabetes mellitus Essential hypertension, benign Hyperlipidemia TIA (transient ischemic attack) No past surgical history on file. Review of systems including constitutional, skin, HEENT, eyes, CV, respiratory, GI, , MSK, endocrine, neurologic, psychiatric reviewed and negative except as noted above. PHYSICAL EXAM VITAL SIGNS: BP 152/90 Pulse 84 Temp 98.4 F (36.9 C) (Oral) Resp 14 SpO2 95% Constitutional: No acute distress. Non-toxic appearance. HENT: Atraumatic. Normocephalic. Phonation normal. Neck: Normal range of motion. Supple. Eyes: Conjunctiva normal. No discharge. PERRL Respiratory: No respiratory distress. No rales. No ronchi. No wheezes. No stridor. Normal air movement. Patient able to talk in full sentences. Cardiovascular: Regular rate and rhythm. No murmurs. No gallops. No rubs. GI: Non distended. Nontender. No rebound. No guarding. No masses. Musculoskeletal: Intact distal pulses. No edema. Integument: No erythema. No rash. No diaphoresis. No cyanosis. Neurologic: Alert & oriented x 3. Cranial nerves grossly intact. Psychiatric: Mood and affect are normal. Alert, awake and oriented x3. Speech is spontaneous with regular rate and rhythm and no dysarthria. Decreased left sided facial sensation, decreased sensation of the LUE and LLE. Comprehension and attention all intact. 5/5 strength in all extremities. Sensation otherwise intact to gross and light touch in all extremities. CN otherwise intact. Some LUE dysmetria. ED COURSE & MEDICAL DECISION MAKING On 09/21/2022 I saw and examined the patient. I discussed the history and examination with the resident/LUIZA and agree with the plan of care. DDx: acute CVA, TIA, dementia, stroke mimic: seizure, tumor, electrolyte abnormality, UTI Hemodynamically stable, afebrile. Exam with left sided numbness and some dysmetria of the LUE and hemianopsia. Otherwise neuro intact. Will obtain labs, EKG. Will consult neurovascular. Seen at OSH with concern for stroke per report on CT imaging. Anticipate admit. Update: Labs reassuring. Per neurovascular, admit to their service PCU. Robel Johansen MD Differential includes life-threatening causes as above. Medical Decision Making Amount and/or Complexity of Data Reviewed Independent Historian: Details: Family member External Data Reviewed: labs, radiology and notes. Labs: ordered. Decision-making details documented in ED Course. ECG/medicine tests: ordered. Discussion of management or test interpretation with external provider(s): Neurovascular Risk Decision regarding hospitalization. Medication list reviewed. I have personally seen and examined this patient. I have fully participated in the care of this patient. I have reviewed all pertinent clinical information, including history, physical exam and plan with the resident. Prior medical records were reviewed. All pertinent labs and imaging results were reviewed and interpreted by me. The patient was updated regarding findings, and was re-assessed during ED stay. Robel Johansen MD 09/21/22 [id number] Robel Johansen MD 09/21/22 8583 [facility] Work Phone: 09-21-2022 Emergency department Note Per EMS report, pt into [facility]sh on Friday with stroke like symptoms, ct findings negative and pt kept for 24hour observation and discharged. On Friday he returned to ed for increasing headache and dizziness with no new diagnosis and discharged again. Pt seen by eye doctor on for decreased vision and determined to have had a cva to left eye due to loss of vision, pt returned to ed again today and was determined to have had an acute stroke that was misinterpreted by ct that was performed on Friday. [facility] Phys[facility] Emergency department Note EMERGENCY DEPARTMENT ENCOUNTER CHIEF CONCERN Transfer w/ concern for stroke HPI & REVIEW OF SYSTEMS Lc Santiago is a 61 y.o. male patient with history of HTN, HLD, T2DM who presents as xfer from OSH after CT findings concerning for stroke. Per transfer note: Patient presented 09/16 and was a stroke alert. Had left facial droop, visual loss in left eye. Full stroke work up completed and started on aspirin, amlodpine daily and was discharged. Patient presented again with headache and pressure behind his eye along with elevated blood pressure. Patient saw optho outpatient and despite his MRI being normal they said he had a stroke based on their findings in his left eye. PCP sent him back to the ED to determine if he needs another MRI. Family concerned for absent seizures throughout the day. Family wants evaluated for seizures but [facility] does not have EEG. Family reports that he just stops and stares. CT today: Called to update that Radiology called to report new stroke in occipital lobe in R thalamus and L occipital lobe as well. Connected with Dr. Camargo via telephone conference call. No change in plan. Today is endorsing left-sided hemianopsia, left facial, arm,e diminished sensation. Reports noticed the sensation around 0 700 this morning so went to the local emergency department. He is denying fever, chills, shortness of breath, chest pain, palpitations, calf tenderness, swelling, abdominal pain LKW: L sensation deficiency onset 0700, 5 hours ago; L hemianopsia 3 days ago Blood thinners: none -Hx neurosurgery, head trauma or stroke in last 3 months? No -Uncontrolled HTN >185 mmHg SBP or > 110 mmHg DBP? No -History of intracranial hemorrhage? No -Known intracranial AV malformation, neoplasm, or aneurysm? No -Active internal bleeding? No -Suspected/confirmed endocarditis? No -Known bleeding diathesis, (plates <100k, heparin w/I 48h & elevated PTT, current use of anticoags?) No -blood glucose: 222 PAST MEDICAL HISTORY Past medical history: HTN, HLD, T2DM. Denies seizure, cancer, TBI history Past surgical history: has no past surgical history on file. Family history: family history is not on file. Social history: has no history on file for tobacco use, alcohol use, and drug use. MEDICATIONS. See chart. Reviewed. ALLERGIES has No Known Allergies. FOCUSED PERTINENT PHYSICAL EXAM Vital Signs:There were no vitals taken for this visit. Physical Exam Constitutional: Appearance: He is not ill-appearing. HENT: Head: Normocephalic and atraumatic. Mouth/Throat: Mouth: Mucous membranes are moist. Pharynx: No oropharyngeal exudate. Eyes: General: Visual field deficit (Left-sided hemianopsia) present. Extraocular Movements: Extraocular movements intact. Conjunctiva/sclera: Conjunctivae normal. Pupils: Pupils are equal, round, and reactive to light. Cardiovascular: Rate and Rhythm: Normal rate and regular rhythm. Pulses: Normal pulses. Pulmonary: Effort: Pulmonary effort is normal. No respiratory distress. Breath sounds: Normal breath sounds. Abdominal: Palpations: Abdomen is soft. Musculoskeletal: General: No tenderness. Cervical back: Normal range of motion. No tenderness. Right lower leg: No edema. Skin: General: Skin is warm and dry. Neurological: Mental Status: He is alert and oriented to person, place, and time. GCS: GCS eye subscore is 4. GCS verbal subscore is 5. GCS motor subscore is 6. Cranial Nerves: No dysarthria or facial asymmetry. Sensory: Sensory deficit (Endorses left-sided numbness however intact grossly to touch including extinction) present. Motor: Pronator drift (LUE) present. No weakness. Coordination: Coordination abnormal (L worse than R). Fyezkt-Bpce-Cuuuuo Test abnormal (L). Heel to Winter Test normal. Impaired rapid alternating movements (L worse than R). NIH 5 (L pronator drift, single limb ataxia, BL L hemianopsia) ASSESSMENT & PLAN ED COURSE & MEDICAL DECISION MAKING Brief Assessment: This a 61 y.o. male patient with PMHx of HTN, HLD, T2DM presenting with c/f stroke. Vitals upon arrival to ED WNL. Initial exam notable for NIH 5 (L pronator drift, single limb ataxia, BL L hemianopsia). The initial differential is stroke, TIA, hypoglycemia, migraine, GCA. Plan: With this differential in mind, initial testing and treatment plan comprises: Labs: chem, CBC, LFT Imaging: OSH completed CTH, MR stroke Consults: neurovasc Therapeutics: BP control Anticipated disposition: admit Medical Decision Making Medical Decision Making This is a 58-year-old gentleman transferred from outside hospital concern for ischemic stroke with left-sided hemianopsia that started several days ago, and left-sided sensation defect of left jaw, left arm, left leg that onset this morning. Initial neuro exam notable for NIH 5 (L pronator drift, L MILAN deficient, BL L hemianopsia). He will be admitted to the neurovascular service for additional workup and stabilization. Amount and/or Complexity of Data Reviewed Labs: ordered. Details: No significant leukocytosis, thrombocytosis, anemia Renal function largely within normal limits. ECG/medicine tests: ordered. Risk Decision regarding hospitalization. Impressions: Headache L hemianopsia Ischemic stroke Patient is in agreement with the above plan. I examined the patient myself and in conjunction with the attending and/or senior resident, ordered the above labs, therapeutics, and consultations. I staffed the patient with the attending physician and/or the senior resident. Pertinent chart review was performed. Our patient was reassessed throughout the ED encounter and any medically pertinent changes in patient's clinical condition are documented above. Deepthi Yi MD Emergency Medicine PGY-1 [facility] Pager: [phone] Deepthi Yi MD Resident 09/21/22 9032 [facility] 09-21-2022 Emergency department Note Bed: E026 Expected date: Expected time: Means of arrival: Comments: [facility]- Expected Reese [facility] Hospital discharge follow-up- Primary Other follow-up examination residential (current) use of antithrombotics/antiplatelets History of medication noncompliance Personal history of noncompliance with medical treatment, presenting hazards to health documented in this encounter [facility] Reason for Referral Specialty Diagnoses / Procedures Referred By Pan bradshaw Referred To Contact Speech Therapy Diagnoses Ischemic stroke James Ward, DOUGH PANNER-REINFORCING STEEL ERECTOR [address] [place] [address] [facility] Speech Therapy [address] [place] [address] Referral ID Status Reason Start Date Expiration Date V isits Requested Visits Authorized [id number] New Request 09/23/2022 10/18/2023 1 1 Scheduling Instructions [facility] [address] [facility], 2nd [place] [address] Fax Outpatient Rehabilitation [facility] [place] [address] [place] [address] FAX Outpatient Rehabilitation Outpatient Care [address] [place] [address] FAX [facility] [address] [address] FAX [facility] [address] [place], [place] [id number] FAX Specialty Diagnoses / Procedures Referred By Pan bradshaw Referred To Contact Occupational Therapy Diagnoses Ischemic stroke James Ward, DOUGH PANNER-REINFORCING STEEL ERECTOR [address] [place] [address] Referral ID Status Reason Start Date Expiration Date V isits Requested Visits Authorized [id number] New Request 09/23/2022 10/18/2023 1 1 Scheduling Instructions [facility] [address] [facility] 2nd [place] [address] FAX [facility]patient [facility] [place] [address] [facility], [address] [place] [address] FAX [facility] [address] [address] FAX [facility]Upper [facility]rem[facility] Hand Therapy) [address] [facility] [facility] [address] FAX [facility] [address] [place] [address] FAX Outpatient [facility] Out[facility] [address] [place] [address] FAX Specialty Diagnoses / Procedures Referred By Pan bradshaw Referred To Contact Physical Therapy Diagnoses Ischemic stroke James Ward, DOUGH PANNER-[employer]INFORCING STEEL E[employer]OR [address] [place] [address] Referral ID Status Reason Start Date Expiration Date V isits Requested Visits Authorized [id number] New Request 09/23/2022 10/18/2023 1 1 Scheduling Instructions [facility] [address] [facility] [facility] [place] [address] Fax [facility] (Neck and Back Therapy) [address] [place], [place] [address] [phone] FAX [facility] [address] [place] [address] [phone] FAX [facility]patient [facility] [place] [address] [facility] [address] [place] [address] [phone] FAX [facility] [address] [place] [address] [phone] FAX Physical Therapy at [facility] [address] [place], [place] [address] [phone] FAX [facility] [address] [place], [place] [address] [phone] FAX Continued on next page Outpatient Rehabilitation Outpatient Care [address] [place] [address] [phone] FAX [facility] [address] [facility], [address] [place] [address] [phone] FAX Specialty Diagnoses / Procedures Referred By Pan bradshaw Referred To Contact Diagnoses Ischemic stroke Procedures ECHOCARDIOGRAM IL ECHO HEART XTHORACIC,COMPLETE W DOPPLER James Ward DOUGH PANNER[employer]INFORCING STEEL E[employer]OR [address] [place] [address] Referral ID Status Reason Start Date Expiration Date V isits Requested Visits Authorized [id number] Auth Not Needed 09/23/2022 10/18/2023 1 1 Specialty Diagnoses / Procedures Referred By Pan bradshaw Referred To Contact Sleep Medicine Diagnoses Ischemic stroke James Ward, DOUGH PANNER[employer]IN[employer]CING STEEL E[employer]OR [address] [place] [phone] Referral ID Status Reason Start Date Expiration Date V isits Requested Visits Authorized [id number] New Request 09/23/2022 10/18/2023 1 1 Specialty Diagnoses / Procedures Referred By Contac t Referred To Contact Occupational Therapy Diagnoses Cerebrovascular accident (CVA) due to stenosis of right posterior cerebral artery Hilda Matthews, DOUGH PANNER[employer]INFORCING STEEL E[employer]OR [address] [place] [phone] Referral ID Status Reason Start Date Expiration Date V isits Requested Visits Authorized [id number] New Request 09/22/2022 10/17/2023 1 1 Specialty Diagnoses / Procedures Referred By Contac t Referred To Contact Neurology Diagnoses Cerebrovascular accident (CVA) due to stenosis of right posterior cerebral artery Hilda Matthews, DOUGH PANNER-REINFORCING STEEL E[employer]OR [address] [place], [place] [phone] Referral ID Status Reason Start Date Expiration Date V isits Requested Visits Authorized [id number] New Request 09/22/2022 10/17/2023 1 1 Specialty Diagnoses / Procedures Referred By Contac t Referred To Contact Procedures PLATELET MONITORING PER PROTOCOL Tiffani Camargo MD [address] [place] [address] Referral ID Status Reason Start Date Expiration Date V isits Requested Visits Authorized [id number] Pending Review 09/21/2022 10/16/2023 1 1 Specialty Diagnoses / Procedures Referred By Contac t Referred To Contact Procedures DVT/VTE RISK ASSESSMENT Tiffani Camargo MD [address] [place], [place] [id number] Referral ID Status Reason Start Date Expiration Date V isits Requested Visits Authorized [id number] Pending Review 09/21/2022 10/16/2023 1 1 Advance Directives Latest Code Status on File Code Status Date Activated Date Inactivated Comments Full Code 09/21/2022 1:55 PM Latest Code Status on File Code Status Date Activated Date Inactivated Comments Full Code 09/21/2022 1:55 PM Summary Purpose Family History No Family History Records Found Additional Source Comments Reason for Visit (unrecogniz ed section and content) Referral ID Status Reason Start Date Expiration Date Visits Re quested Visits Authorized [id number] 1 1 Reason Comments Follow-up Scheduled Active and Recently Administ ered Medications (unrecognized section and content) Continuous Medication Order 09/21/2022 09/22/2022 09/23/2022 Sodium chloride 0.9% IV solution (CANCELED) Intravenous, at 75 mL/hr, CONTINUOUS, Starting on 09/21/22 at 1400, Until 09/22/22 at 0533 1456 ($$New Bag$$ - Provider: Daniel Rubi RN)1612 (Rate/Dose Verify - Provider: Opal Acevedo, DALLIN)2007 (Rate/Dose Verify - Provider: Opal Acevedo RN)2333 (Rate/Dose Verify - Provider: Opal Acevedo RN) 0000 (Rate/Dose Verify - Provider: Opal Acevedo, DALLIN)0459 (Rate/Dose Verify - Provider: Opal Acevedo, DALLIN)0459 (Paused - Provider: Opal Acevedo RN)0534 (Stopped - Provider: Opal Acevedo RN) PRN Medication Order 09/21/2022 09/22/2022 09/23/2022 Acetaminophen (TYLENOL) tablet 325 mg(Linked Group 4) 325 mg, Oral, EVERY 4 HOURS NEEDED, Starting on 09/21/22 at 1353, Until 09/23/22 at 1558, Mild Pain, Moderate Pain, Maximum dose of acetaminophen is 4000 mg from all sources in 24 hours. 1451 (See Alternative - Provider: Daniel Rubi RN)2043 (See Alternative - Provider: Romaine Melton RN) 0027 (See Alternative - Provider: Opal Acevedo, DALLIN)0047 (See Alternative - Provider: Opal Acevedo, DALLIN)0916 (See Alternative - Provider: Mayuri Mayes RN)2105 (See Alternative - Provider: Jag Ellison, DALLIN) 0402 (See Alternative - Provider: Jga Ellison, DALLIN) Acetaminophen (TYLENOL) tablet 325 mg(Linked Group 4) 325 mg, Per NG tube, EVERY 4 HOURS NEEDED, Starting on 09/21/22 at 1353, Until 09/23/22 at 1558, Mild Pain, Moderate Pain, Maximum dose of acetaminophen is 4000 mg from all sources in 24 hours. 145 (See Alternative - Provider: Daniel Rubi RN)2042 (See Alternative - Provider: Romaine Melton RN) 26 (See Alternative - Provider: Opal Acevedo RN)004 (See Alternative - Provider: Opal Acevedo RN)0916 (See Alternative - Provider: Mayuri Mayes RN)2104 (See Alternative - Provider: Jag Ellison RN) 040 (See Alternative - Provider: Jag Ellison RN) Acetaminophen (TYLENOL) tablet 650 mg(Linked Group 4) 650 mg, Oral, EVERY 4 HOURS NEEDED, Starting on 09/21/22 at 1353, Until Fri09/23/22 at 1558, Severe Pain, Oral temp > 99.5, Maximum dose of acetaminophen is 4000 mg from all sources in 24 hours. 145 (Given - Provider: Daniel Rubi RN)2042 (Given - Provider: Romaine Melton RN) 26 (Not Given - Provider: Opal Acevedo RN - Reason: Other - Comment: held at this time d/t prior dose)46 (See Alternative - Provider: Opal Acevedo RN)915 (Given - Provider: Mayuri Mayes RN)2104 (Given - Provider: Jag Ellison RN) 401 (Given - Provider: Jag Ellison RN) Acetaminophen (TYLENOL) tablet 650 mg(Linked Group 4) 650 mg, Per NG tube, EVERY 4 HOURS NEEDED, Starting on 09/21/22 at 1353, Until Fri09/23/22 at 1558, Severe Pain, Oral temp > 99.5, Maximum dose of acetaminophen is 4000 mg from all sources in 24 hours. 145 (See Alternative - Provider: Daniel Rubi RN)2042 (See Alternative - Provider: Romaine Melton RN) 26 (See Alternative - Provider: Opal Acevedo RN)46 (Given - Provider: Opal Acevedo RN)0916 (See Alternative - Provider: Mayuri Mayes RN)2104 (See Alternative - Provider: Jag Ellison RN) 040 (See Alternative - Provider: Jag Ellison RN) Dextrose 50% injection 7.5-25 g(Linked Group 2) 7.5-25 g, Intravenous, ADMINISTER DIRECTED, Starting on 09/21/22 at 1353, Until 09/23/22 at 1558, Blood glucose <80 mg/dL, For patients who are not alert, are NPO, or are on IV insulin infusion administer as directed per Hypoglycemia in Non- Adults Clinical Practice Guideline. For Blood Glucose: 60-79 mg/dL administer 7.5 gm (15ml); 45-59 mg/dL administer 12.5 gm (25ml); less than 45mg/dL administer 25gm (50ml). ++ If additional dextrose 50% needed, contact pharmacy or obtain from [facility] cart ++ glucose (GLUTOSE) 40 % oral gel 1-2 Tube(Linked Group 2) 1-2 Tube, Oral, ADMINISTER DIRECTED, Starting on 09/21/22 at 1353, Until 09/23/22 at 1558, Blood glucose <80 mg/dL, For patients who are alert, able to tolerate PO intake and with intact cognitive status administer as directed per Hypoglycemia in Non- Adults Clinical Practice Guideline. For Blood Glucose: 60-79 mg/dL administer 1 tube; 45-59 mg/dl administer 1.5 tubes; less than 45 mg/dL administer 2 tubes. Each tube of 37.5g delivers 15g of carbohydrate. hydrALAZINE (APRESOLINE) injection 10 mg(Linked Group 5) 10 mg, Intravenous, EVERY 1 HOUR NEEDED, Starting on 09/21/22 at 1353, Until 09/23/22 at 1558, Systolic Blood Pressure greater than 220 mmHg and heart rate LESS THAN 60 beats per minute., Use as initial dose. Higher dose may be administered if lower dose was previously documented as ineffective 10 minutes after administration and did not result in adverse effects (HR>90) hydrALAZINE (APRESOLINE) injection 20 mg(Linked Group 5) 20 mg, Intravenous, EVERY 1 HOUR NEEDED, Starting on 09/21/22 at 1353, Until 09/23/22 at 1558, Systolic Blood Pressure greater than 220 mmHg and heart rate LESS THAN 60 beats per minute., Higher dose may be administered if lower dose was previously documented as ineffective 10 minutes after administration and did not result in adverse effects (HR>90). Decrease back to lower dose if patient has adverse effects, or no PRN used in previous 3 hours Insulin lispro (HUMALOG) injection(Linked Group 2) Subcutaneous, NEEDED, Starting on 09/21/22 at 1353, Until Fri09/23/22 at 1558, Other, As needed for snacks, Insulin to carb ratio: Standard: 1 unit insulin = 10 grams carbs Correction Factor: not to be used with this order. Kwikpen: Prime pen before each injection; refer to Pen Priming and Care Handout for further details. Warning! Confirm patient. Insulin pen is for labeled individual patient use ONLY. Labetalol (NORMODYNE) injection 10 mg(Linked Group 6) 10 mg, Intravenous, EVERY 1 HOUR NEEDED, Starting on 09/21/22 at 1353, Until Fri09/23/22 at 1558, Systolic Blood Pressure greater than 220 mmHg and heart rate GREATER THAN 60 beats per minute., Use as initial dose. Higher dose may be administered if lower dose was previously documented as ineffective 10 minutes after administration and did not result in adverse effects (HR<60) For vials: labetalol should be treated as a SINGLE USE VIAL. Discard remaining contents after one use. Labetalol (NORMODYNE) injection 20 mg(Linked Group 6) 20 mg, Intravenous, EVERY 1 HOUR NEEDED, Starting on 09/21/22 at 1353, Until Fri09/23/22 at 1558, Systolic Blood Pressure greater than 220 mmHg and heart rate GREATER THAN 60 beats per minute., Higher dose may be administered if lower dose was previously documented as ineffective 10 minutes after administration and did not result in adverse effects (HR<60). Decrease back to lower dose if patient has adverse effects, or no PRN used in previous 3 hours For vials: labetalol should be treated as a SINGLE USE VIAL. Discard remaining contents after one use. Polyethylene glycol (MIRALAX) packet 17 g(Linked Group 7) 17 g, Oral, DAILY NEEDED, Starting on 09/21/22 at 1353, Until Fri09/23/22 at 1558, Constipation If No Bowel Movement in 48 Hours Polyethylene glycol (MIRALAX) packet 17 g(Linked Group 7) 17 g, Per NG tube, DAILY NEEDED, Starting on 09/21/22 at 1353, Until Fri09/23/22 at 1558, Constipation If No Bowel Movement in 48 Hours Prochlorperazine (COMPAZINE) injection 10 mg 10 mg, Intravenous, EVERY 6 HOURS NEEDED, Starting on 09/22/22 at 0051, Until 09/23/22 at 1558, Nausea / Vomiting, Headaches, For IV route: dilute dose with 10mL normal saline and give by slow IV push at a rate of 5mg/min. Maximum of 40mg/day. 0113 (Given - Provider: Opal Acevedo, RN)0916 (Given - Provider: Mayuri Mayes, DALLIN)2111 (Given - Provider: Jag Ellison, DALLIN) Sodium chloride (PF) 0.9 % injection 1-100 mL (COMPLETED) 1-100 mL, Intravenous, ONCE NEEDED, 1 dose, Starting on 09/21/22 at 1619, Until 09/21/22 at 1619, Flush, CT Procedure 1619 (Given - Provider: Mickey Cleveland) Linked Groups Order Group 1: aspirin chewable tablet 81 mgJump to med 81 mg, Oral, DAILY, First dose on 09/21/22 at 1430, Until Discontinued
May begin use of chewable aspirin when patient passes swallow test.
Or aspirin suppository 300 mgJump to med 300 mg, Rectal, DAILY, First dose on 09/21/22 at 1430, Until Discontinued
Use suppository until patient passes swallow test.
Group 2: Insulin lispro (HUMALOG) injectionJump to med Subcutaneous, 4 TIMES DAILY WITH MEALS & AT BEDTIME, First dose on 09/21/22 at 1700, Until Discontinued
Insulin to carb ratio: Standard: 1 unit insulin = 10 grams carbs every meal and at bedtime Correction Factor: 151-200 = 1 unit; 201-250 = 2 units; 251-300 = 3 units; 301-350 = 4 units; 351-400 = 5 units; Kwikpen: Prime pen before each injection; refer to Pen Priming and Care Handout for further details. Warning! Confirm patient. Insulin pen is for labeled individual patient use ONLY.
And Insulin lispro (HUMALOG) injectionJump to med Subcutaneous, NEEDED, Starting on 09/21/22 at 1353, Until 09/23/22 at 1558, Other, As needed for snacks
Insulin to carb ratio: Standard: 1 unit insulin = 10 grams carbs Correction Factor: not to be used with this order. Kwikpen: Prime pen before each injection; refer to Pen Priming and Care Handout for further details. Warning! Confirm patient. Insulin pen is for labeled individual patient use ONLY.
And BLOOD GLUCOSE (POC DEVICE) (COMPLETED) Routine, 4 TIMES DAILY BEFORE MEALS & AT BEDTIME, First occurrence on 09/21/22 at 1530
If any Blood Glucose (POC) is greater than 300mg/dl, then repeat Blood Glucose (POC) in 2 hours. If the initial blood glucose was greater than 300mg/dl and if second blood glucose is greater than 200md/dl, then notify Food And Nutrition Teacher. And BLOOD GLUCOSE (POC DEVICE) (CANCELED) Routine, DIRECTED, Starting on 09/21/22 at 1353, Until Specified
For all Blood Glucose LESS THAN 80 mg/dL, treat per Hypoglycemia in Non- Adults Clinical Practice Guideline (CPG) and recheck glucose 15 min after treatment. Repeat per CPG until glucose GREATER THAN 80 mg/dL. Once glucose IS GREATER THAN 80 mg/dL, recheck Blood Glucose every 1 hour x2, then resume as previously ordered. For Blood Glucose LESS THAN 80 mg/dL on admission OR LESS than 45 mg/dL at any time, obtain POC Blood Glucose every 4 hours for 6 occurrences AFTER treating per CPG. Obtain blood glucose for symptoms of hypoglycemia: sweating, shaking, fatigue, rapid pulse, slow thinking & dizziness. Notify physician w/results. Obtain blood glucose for symptoms of hyperglycemia: excessive thirst, blurred vision, excessive urination & tiredness. Notify physician w/results. If patient NPO, obtain POC Blood Glucose prior to administration of any insulin products. And COMMUNICATION ORDER FOR NURSING CARE: For Blood Glucose LESS THAN 80 mg/dl (CANCELED) Routine, CONTINUOUS, Starting on 09/21/22 at 1354, Until Specified
For Blood Glucose LESS THAN 80 mg/dl follow Hypoglycemia in Non- Adults Clinical Practice Guideline (CPG) And Dextrose 50% injection 7.5-25 gJump to med 7.5-25 g, Intravenous, ADMINISTER DIRECTED, Starting on 09/21/22 at 1353, Until 09/23/22 at 1558, Blood glucose <80 mg/dL
For patients who are not alert, are NPO, or are on IV insulin infusion administer as directed per Hypoglycemia in Non- Adults Clinical Practice Guideline. For Blood Glucose: 60-79 mg/dL administer 7.5 gm (15ml); 45-59 mg/dL administer 12.5 gm (25ml); less than 45mg/dL administer 25gm (50ml). ++ If additional dextrose 50% needed, contact pharmacy or obtain from [facility] cart ++
And glucose (GLUTOSE) 40 % oral gel 1-2 TubeJump to med 1-2 Tube, Oral, ADMINISTER DIRECTED, Starting on 09/21/22 at 1353, Until 09/23/22 at 1558, Blood glucose <80 mg/dL
For patients who are alert, able to tolerate PO intake and with intact cognitive status administer as directed per Hypoglycemia in Non- Adults Clinical Practice Guideline. For Blood Glucose: 60-79 mg/dL administer 1 tube; 45-59 mg/dl administer 1.5 tubes; less than 45 mg/dL administer 2 tubes. Each tube of 37.5g delivers 15g of carbohydrate.
And NOTIFY PHYSICIAN, Blood Glucose LESS THAN 80 mg/dl (CANCELED) Routine, CONTINUOUS, Starting on 09/21/22 at 1354, Until Specified
Who to Notify: Food And Nutrition Teacher
For all Blood Glucose LESS THAN 80 mg/dl, notify Food And Nutrition Teacher after treatment per Hypoglycemia in Non- Adults Clinical Practice Guideline And Carbohydrate counts with meals (CANCELED) Routine, CONTINUOUS, Starting on 09/21/22 at 1354, Until Specified
Carbohydrate counts are to be done after each patient meal and with snack. Group 3: Senna (SENOKOT) tablet 8.6 mgJump to med 8.6 mg, Oral, DAILY EVERY MORNING, First dose on 09/21/22 at 1400, Until Discontinued
Hold if BM in last 2 hours.
Or Senna (SENOKOT) tablet 8.6 mgJump to med 8.6 mg, Per NG tube, DAILY EVERY MORNING, First dose on 09/21/22 at 1400, Until Discontinued
Hold if BM in last 2 hours.
Group 4: Acetaminophen (TYLENOL) tablet 325 mgJump to med 325 mg, Oral, EVERY 4 HOURS NEEDED, Starting on 09/21/22 at 1353, Until 09/23/22 at 1558, Mild Pain, Moderate Pain
Maximum dose of acetaminophen is 4000 mg from all sources in 24 hours.
Or Acetaminophen (TYLENOL) tablet 325 mgJump to med 325 mg, Per NG tube, EVERY 4 HOURS NEEDED, Starting on 09/21/22 at 1353, Until 09/23/22 at 1558, Mild Pain, Moderate Pain
Maximum dose of acetaminophen is 4000 mg from all sources in 24 hours.
Or Acetaminophen (TYLENOL) tablet 650 mgJump to med 650 mg, Oral, EVERY 4 HOURS NEEDED, Starting on 09/21/22 at 1353, Until 09/23/22 at 1558, Severe Pain, Oral temp > 99.5
Maximum dose of acetaminophen is 4000 mg from all sources in 24 hours.
Or Acetaminophen (TYLENOL) tablet 650 mgJump to med 650 mg, Per NG tube, EVERY 4 HOURS NEEDED, Starting on 09/21/22 at 1353, Until 09/23/22 at 1558, Severe Pain, Oral temp > 99.5
Maximum dose of acetaminophen is 4000 mg from all sources in 24 hours.
Group 5: hydrALAZINE (APRESOLINE) injection 10 mgJump to med 10 mg, Intravenous, EVERY 1 HOUR NEEDED, Starting on 09/21/22 at 1353, Until 09/23/22 at 1558, Systolic Blood Pressure greater than 220 mmHg and heart rate LESS THAN 60 beats per minute.
Use as initial dose. Higher dose may be administered if lower dose was previously documented as ineffective 10 minutes after administration and did not result in adverse effects (HR>90)
Or hydrALAZINE (APRESOLINE) injection 20 mgJump to med 20 mg, Intravenous, EVERY 1 HOUR NEEDED, Starting on 09/21/22 at 1353, Until 09/23/22 at 1558, Systolic Blood Pressure greater than 220 mmHg and heart rate LESS THAN 60 beats per minute.
Higher dose may be administered if lower dose was previously documented as ineffective 10 minutes after administration and did not result in adverse effects (HR>90). Decrease back to lower dose if patient has adverse effects, or no PRN used in previous 3 hours
Group 6: Labetalol (NORMODYNE) injection 10 mgJump to med 10 mg, Intravenous, EVERY 1 HOUR NEEDED, Starting on 09/21/22 at 1353, Until 09/23/22 at 1558, Systolic Blood Pressure greater than 220 mmHg and heart rate GREATER THAN 60 beats per minute.
Use as initial dose. Higher dose may be administered if lower dose was previously documented as ineffective 10 minutes after administration and did not result in adverse effects (HR<60) For vials: labetalol should be treated as a SINGLE USE VIAL. Discard remaining contents after one use.
Or Labetalol (NORMODYNE) injection 20 mgJump to med 20 mg, Intravenous, EVERY 1 HOUR NEEDED, Starting on 09/21/22 at 1353, Until 09/23/22 at 1558, Systolic Blood Pressure greater than 220 mmHg and heart rate GREATER THAN 60 beats per minute.
Higher dose may be administered if lower dose was previously documented as ineffective 10 minutes after administration and did not result in adverse effects (HR<60). Decrease back to lower dose if patient has adverse effects, or no PRN used in previous 3 hours For vials: labetalol should be treated as a SINGLE USE VIAL. Discard remaining contents after one use.
Group 7: Polyethylene glycol (MIRALAX) packet 17 gJump to med 17 g, Oral, DAILY NEEDED, Starting on 09/21/22 at 1353, Until Fri09/23/22 at 1558, Constipation If No Bowel Movement in 48 Hours Or Polyethylene glycol (MIRALAX) packet 17 gJump to med 17 g, Per NG tube, DAILY NEEDED, Starting on 09/21/22 at 1353, Until 09/23/22 at 1558, Constipation If No Bowel Movement in 48 Hours Care Teams (unrecognized sec tion and content) Signals Collector/Analyst Relationship Specialty Start Date End Date Edvin Polanco MD [address] [place] [address] PCP - General Family Medicine 09/16/22 Ventura Wells MD [address] [place] [address] Psychiatry 11/01/22 (unrecognized sect ion and content) No Status Records Found INFORMATION SOURCE (unrecogn ized section and content) FOR RECORDS PERTAINING TO PATIENTS WHO ARE OR HAVE BEEN ENROLLED IN A CHEMICAL DEPENDENCY/SUBSTANCEABUSE PROGRAM, SOME INFORMATION MAY BE OMITTED. This clinical summary was aggregated from multiple sources. Caution should be exercised in using it in the provision of clinical care. This summary normalizes information from multiple sources, and as a consequence, information in this document may materially change the coding, format and clinical context of patient data. In addition, data may be omitted in some cases. CLINICAL DECISIONS SHOULD BE BASED ON THE PRIMARY CLINICAL RECORDS. [employer] provides no warranty or guarantee of the accuracy or completeness of information in this document.
[2023-04-28 15:22] LABS: PSA,Total- Diagnostic 4.73 ng/mL (0.0-4.0)
== END | disposition home or self-care (01) ==
PROVIDERS: PCP Family Medicine; Visit Provider Urology
DX: R97.20 Elevated prostate specific antigen [PSA] (principal)
CPT/HCPCS: 36415; 84153

== ENCOUNTER → 2023-06-05 | Outpatient (CLI) | payer OTHER, SELFPAY ==
--- OUTSIDE RECORDS SUMMARY | 2023-06-05 14:12 | XMS RPT_ITS | CCD ---
Author Name Unknown Address [address] [place] [address] Organization [facility] Care Team Providers Care Compliance Mgr Name Role Phone Edvin Polanco MD Primary [...] mouth 2 times daily. 0 10/18/2022 Active Ridgway-3 Fatty Acids (Ridgway-3 Microgel) 600 MG capsule (1 source) Ridgway-3 Fatty Acids (Ridgway-3 Microgel) 600 MG capsule Take 600 capsules [...] aftercare (1 source) Patient encounter status; Translations: [correction (current) use of antithrombotics/anti platelets] 11-25-2022 Episodic [...] 14:14-0400 Body height 177.8 cm Bassam Phillipadam ODD PIECE CHECKERMobilePro Work Phone: [facility] 11-01-2022 14:14-0400 Body mass index (BMI) [Ratio] 29.69 kg/m2 Bassam Hector KangaDo Work Phone: [facility] 11-01-2022 14:14-0400 Body temperature 98.01 [degF] Bassam Phillipadam KangaDo Work Phone: [facility] 11-01-2022 14:14-0400 Body weight 93.85 kg Bassam Hector KangaDo Work Phone: [facility] 11-01-2022 14:14-0400 Diastolic blood pressure 87 mm[Hg] Bassam Phillipadam KangaDo Work Phone: [facility] 11-01-2022 14:14-0400 Heart rate 92 /min Bassam Hector KangaDo Work Phone: [facility] 11-01-2022 14:14-0400 Systolic blood pressure 129 mm[Hg] Bassam Phillipadam KangaDo Work Phone: [facility] 09-23-2022 11:40-0400 SaO2% (BldA) [Mass fraction] 97 % Robel Johansen MD Work Phone: [facility] 09-23-2022 09:43-0400 Diastolic blood pressure 101 mm[Hg] Robel Johansen MD Work Phone: [facility] 09-23-2022 09:43-0400 Systolic blood pressure 158 mm[Hg] Robel Johansen MD Work Phone: [facility] 09-23-2022 09:30-0400 Heart rate 105 /min Robel Johansen MD Work Phone: [facility] 09-23-2022 09:20-0400 Respiratory rate 21 /min Robel Johansen MD Work Phone: [facility] 09-23-2022 07:46-0400 Body temperature 98.01 [degF] Robel Johansen MD Work Phone: [facility] 09-22-2022 06:01-0400 Body height 177.8 cm Robel Johansen MD Work Phone: [facility] 09-22-2022 06:01-0400 Body mass index (BMI) [Ratio] 34.15 kg/m2 Robel Johansen MD Work Phone: [facility] 09-22-2022 06:01-0400 Body weight 107.96 kg Robel Johansen MD Work Phone: [facility] Encounters Encounter Date Encounter Type Care Provider Facility Start: 11-01-2022 ambulatory [facility] Facility:[facility] Start: 11-01-2022 End: 11-01-2022 Office outpatient visit 40 minutes Bassam Hector ODD PIECE CHECKER-ABE TEACHER Work Phone: [facility] [place] Procedures Date Procedure Procedure Detail Performing Clinician Start: 09-23-2022 Glucose measurement, blood Tiffani Camargo MD Work Phone: Start: 09-23-2022 Glucose measurement, blood Tiffani Camargo MD Work Phone: Start: 09-23-2022 CONTINUOUS CARDIAC MONITORING STRIP Other Other Start: 09-23-2022 Electrolyte panel Inna Matthews ODD PIECE CHECKER-ABE TEACHER Work Phone: Start: 09-22-2022 Glucose measurement, blood [...] Work Phone: Start: 09-21-2022 RAINBOW DRAW Danie Johansen MD Work Phone: Start: 09-21-2022 Glucose measurement, blood Robel Johansen MD Work Phone: Plan of Treatment Date Care Activity Detail Author Start: 08-03-2028 Tetanus vaccination TETANUS [facility] Start: 09-23-2027 Lipid panel LIPID SCREENING [facility] Start: 09-23-2023 Lipid panel LIPIDS [facility] Start: 03-24-2023 Hemoglobin A1c measurement HBA1C TEST [facility] Start: 11-29-2022 Influenza vaccination [facility] Start: 11-01-2022 End: 11-01-2022 Patient encounter procedure 11/01/2022 2:20 PM EDT Office Visit [facility] [address] [place] [address] Bassam Hector, ODD PIECE CHECKER-ABE TEACHER [address] [facility] [address] [place] [address] [facility] [place] Start: 09-23-2022 End: 09-24-2023 Echocardiography ECHOCARDIOGRAM Echocardiography Routine Ischemic stroke Expected: 09/23/2022, Expires: 09/24/2023 [facility] Immunizations Immunization Date Immunization Notes Care Provider Silvestre jon 02-04-2018 influenza virus vaccine, unspecified formulation Robel Johansen MD Work Phone: [facility] Payers Date Payer Category Payer Unknown [id number] 2022-Present [address] [place] [address] [id number] 2022 Unknown [id number] 1960 Unknown [id number] 1960 Unknown [id number] 1960 Unknown [id number] Social History Date Type Detail Facility Start: 09-22-2022 Tobacco smoking status NHIS Never smoked tobacco [facility] Start: 09-22-2022 Tobacco use and exposure Smokeless tobacco non-user [facility] Start: 09-22-2022 End: 11-01-2022 History of Social function [facility] Start: 09-22-2022 End: 11-01-2022 Tobacco use panel [facility] Start: 1960 Sex Assigned At Not on file [facility] Start: 09-12-2022 End: 09-22-2022 Exposure to SARS-CoV-2 (event) Not sure [facility] NEGATED: Highlighted rowStart: NINF History of tobacco use Passive smoker [facility] Clinical Notes 09-21-2022 to 11-01-2022 Bassam Hector, JASON-ABE TEACHER - 11/01/2022 2:20 PM EDTPatient InstructionsNursing Notes - Jag Alvarez RN - 09/23/2022 1:56 PM EDTNursing Notes - Jag Alvarez RN - 09/23/2022 1:56 PM EDT Note Date & Type Note Facility 11-01-2022 History of Presen t illness Narrative [facility] Department of Neurology Section of Cerebrovascular Disease and Neurocritical Care Hospital Follow Up IDENTIFYING PATIENT INFORMATION: Ari Santiago MR# [id number] 11/01/2022 CHIEF COMPLAINT: Follow up after hospitalization [...] vision in L eye. He went to [place] where a CTH and CTA were reportedly [...] L hemianopsia. On 09/21, he went to [facility] where CTH showed acute R occipital and [...] Take 6 tabs by mouth every Friday Ridgway-3 Fatty Acids (Ridgway-3 Microgel) 600 MG capsule Take 600 capsules [...] Extinction and Inattention: 0 TOTAL: 1 Modified [facility]: 2 DATA: HgBA1c: Lab [...] stroke prevention. Would not recommend angioplasty/stenting, [facility] found no benefit of [facility]al [...] mmHg. BP management should aim to achieve residential control in a reasonable amount of time, [...] 42:227-276; (2) Purdy et al, Stroke 2006, 3204-1328; (3) Liz et al, Stroke 2006; 37: 577-617; (4) Olga Montero. KAMILLA 2003, [phone]; (5) Rajwinder, et al, Circulation 2001, 103-163; (6) Jorgensen, et al, Stroke 1999, 5690-2265;(7) ATP III. See also http:///nhlbi.nih.gov/guidelines/ cholesterol/index.htm documented in this encounter [facility] 11-01-2022 Instructions OLIVER Stewart - 11/01/2022 2:20 PM EDT ASA 81mg and Plavix 75mg for 90 days (until 12/20/22) Please send TTE results to [facility] documented in this encounter [facility] 09-23-2022 Nurse Note AVS completed with patient and family at bedside, all questions and concerns answered with discharge education reviewed and completed final NIH completed and charted per metric. IV successfully removed with no complications per policy and procedure. Patient escorted down by this RN via wheelchair, discharge successful. [facility] 09-23-2022 Miscellaneous Notes AVS completed with patient [...] discharge to pending. documented in this encounter [facility] 09-23-2022 Nurse Note Stroke patient education has been reviewed and all required elements are complete and personalized. Care plan documentation complete and patient adequate for discharge. Next dose medication details have been added to the AVS as appropriate. [facility] 09-23-2022 History of Presen t illness Narrative Acute Care CRM DEVELOPER Speech/Language/Cognitive Evaluation Best mode of Communication: spoken language (regular speech) Discharge Recommendations: Based on the below outcome measures/assessment score(s) and CRM DEVELOPER clinical judgment, discharge destination recommendation is: Deferred to PT/OT recomendations related to mobility; initial 24 hour supervision/assistance - with particular attention to medication/finance management. Barriers to discharge home: 1:1 assist needed for IADL's including medication management and finances Supporting factors for discharge setting: Impaired cognitive skills limiting independence Acute CRM DEVELOPER Outcomes Tracking Communicate basic wants and needs?: yes Demo insight/appreciation of deficits?: yes Complete basic problem solving?: yes Current therapy frequency recommendation in acute: Speech/Lang/Cog Therapy Frequency: no therapy warranted (in acute care setting) Clinical Impression: Ari Santiago presents with mild cognitive deficits, characterized by deficits in the areas of attention, immediate/delayed recall, and executive function/sequencing s/p acute R AIRSET CASTER stroke (R occipital and R thalamic on [...] Patient and patient's and daughter. Focus on CRM DEVELOPER role in plan of care as well [...] setting. The patient will benefit from outpatient CRM DEVELOPER services at discharge to target aforementioned impairments. [...] vision in L eye. He went to [place] where a CTH and CTA were reportedly [...] L hemianopsia. 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 Needs in reach. CRM DEVELOPER Evaluation and Treatment Time Speech Sound Production Eval W/ Lang Comp and Exp Time Entry: 25 Upon discontinuation of Acute Care Speech Therapy Services or patient discharge from the hospital this note represents the current Speech Therapy Discharge Summary Acute Care Speech-Language Pathology Note Received consult for swallow evaluation. However, pt passed [place] Swallow Screening by nursing. Swallow eval by CRM DEVELOPER will not be completed at this time unless this service notified of change in status or re-consult for swallow eval placed. CRM DEVELOPER to proceed with speech/language/cognitive evaluation per order. Thank you. 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 Daughter is a teacher and she has the summer off. 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 IADL History IADLs: independent Primary Language: [place] Home Management Skills: independent Medication Management: independent [...] noted Mobility Assessment: Supine to Sit Mobility Pratt Level: Supine->Sit: supervision Bed Features/Set-up: Supine->Sit: Head of bed elevated Skilled Rationale: Verbal cues, Cues for increased safety Skilled Intervention/Details: Supine->Sit: use for scanning left Transfer Assessment: Sit to Stand Transfer Pratt Level: Sit->Stand: contact guard assist Physical Assist: Sit->Stand: (1 person) Assistive Device: Sit->Stand: gait belt Skilled Rationale: Verbal cues, Hand placement, Technique of activity, Cues for increased safety Skilled Intervention/Details: Sit->Stand: Cues to assess/scan environment Stand to Sit Transfer Pratt Level: Stand->Sit: contact guard assist Physical Assist: Stand->Sit: (1 person) Assistive Device: Stand->Sit: gait belt, armed chair Skilled Rationale: Positioning, Hand placement, Verbal cues, Cues for increased safety Skilled Intervention/Details: Stand->Sit: Cues for visual scanning and proximity to chair Toilet Transfer Pratt Level: Toilet: stand-by assist Assistive Device: Toilet: gait belt, grab bars Skilled Rationale: Verbal cues, Technique of activity, Cues for increased safety Skilled Intervention/Details: Toilet: Cues to use visual compensatory strategies Functional Mobility: Functional Mobility Pratt Level: Functional Mobility/Gait: contact guard assist Physical [...] Fugl-May Score (out of 60): 57 CURRENT AM-PAC Daily Activity Inpatient Short Form Putting on/Taking [...] ADL Equipment Available: none 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 Daughter is a teacher and she has the summer off. 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 Objective/Observation: [...] toes Mobility Assessment: Supine to Sit Mobility Pratt Level: Supine->Sit: supervision Bed Features/Set-up: Supine->Sit: Head [...] safety Transfer Assessment: Sit to Stand Transfer Pratt Level: Sit->Stand: contact guard assist Assistive Device: Sit->Stand: gait belt Skilled Rationale: Positioning, Hand placement, Sequencing, Verbal cues, Cues for increased safety Stand to Sit Transfer Pratt Level: Stand->Sit: contact guard assist Assistive Device: Stand->Sit: gait belt Skilled Rationale: Positioning, Sequencing, Hand placement, Verbal cues, Cues for increased safety Skilled Intervention/Details: Stand->Sit: Cueing on slow movement to promote safety Gait/Functional Mobility: Gait Assessment Pratt Level: Gait: contact guard assist Assistive Device: [...] his left drifted path. Stairs: Stairs Assessment Pratt Level: Stair Negotiation: contact guard assist Assistive [...] a railin - A Little Assistance CURRENT AM[facility] Mobility Raw Score: 19 CURRENT AM-PAC Mobility Functional Limitation/Modifier: 41.77% Currently Impaired in [...] (Low) Clinical Decision Making: Moderate Time In: 10 Time Out: 0940 Total Visit Time: 30 [...] plan Jess Sanchez PT, DPT License #: [id number] Pager #: [phone] Discharge Planning Patient Assessment Admission Assessment Patient Assessment Completed: Initial Anticipated discharge disposition: Home Reason for Admission: stroke Is the patient able to participate in the assessment?: Yes Information source: Patient, Spouse Information Source Name/Contact: Carin Santiago [phone] Demographics Verified and Updated: Yes Has the [...] Yes Name and Contact information: Carin Santiago [phone] Adult Child(charanjit), List All Adult Children: Yes Name and Contact information: Opal Reese [phone] Would you like to add additional adult [...] any specialists?: Yes ([facility] [place], [place]) Reviewed and updated Care Team?: Yes Patient Care Team: Edvin Polanco MD as PCP - General (Family Medicine) Environment/Caregivers Is the patient from a facility or halfway?: No Patient lives with: Spouse or Partner [...] consults?: Yes Select consult type: PT, OT, CRM DEVELOPER Does the patient's home require any home modifications for discharge? : Unknown at this time CM to recommend therapy or other consults? : No Medication Management Does the patient have prescription insurance coverage? : Yes Is the patient on Anticoagulation? : No [id number] [place] [address] - [address] [place] [address] [address] Batch Weigher Does the patient or representative phlebotomy services express financial concerns? : No Employed?: Yes Coping/Stress Concerns about patient s coping and stress?: No Concerns about patient s caregiver s coping and stress?: No Values and Beliefs Cultural or baptism practices that may impact discharge planning and/or [...] Discharge Date: 09/24/2022 Discharge Planning Summary Per HOTEL ATTENDANT notes, home. Awaiting PT/OT eval. and recs. Doreen JACKSON RN Clinical [facility] Department of Pharmacy Anticoagulant Progress Note Patient: Ari Santiago Room/Bed: E026/E026 Assessment/Plan: Patient's current weight is 98.3kg, BMI of ~31.6 kg/m2 using previously documented height of 176.5cm, and estimated creatinine clearance of 123 mL/min. Based on this, I have changed the enoxaparin subcutaneous dose to 40 mg every 24 hours. Name: Jag Ocasio RPH Phone: [phone] Date/Time: 09/21/2022 5:35 PM documented in this encounter [facility] 09-23-2022 Plan of care note Problem: OT [...] participation and safety in ADLs. Outcome: Ongoing [facility] 09-23-2022 Plan of care note Problem: Patient [...] Discharge Needs Assessment Outcome: Progressing Toward Goal [facility] 09-22-2022 Nurse Note Patient receiving class B hazardous medication. All precautions observed. Sign hung in room. Patient & family educated on keeping toilet covered & flushing twice after voiding. Patient & family verbalized understanding. [facility] 09-22-2022 Hospital Discharg e instructions James Ward, ODD PIECE CHECKER-ABE TEACHER - 09/22/2022 7:16 AM EDT Please take [...] may call your neurovascular doctors office at [phone], if you have questions between 8:30 am and 4:30 pm. - For off hours or the weekend you may call the office or the hospital radius corner machine operator at and ask for the stroke resident supervisor functional testing to be paged. - If you have any questions or needs, please call Nupur Bobby RN, stroke aviation program manager at [phone] Mon-Fri from 09-30 ? Any questions concerning your discharge instructions please call Case Management Office [phone] Patient Stroke Resources: [facility] Stroke Support The [facility] Stroke Support Group is for stroke survivors, friends, and family members. Meets every Friday from 12:00PM to 1:00PM at [facility]), [address] [place] [address] Erika Rosales, at [phone]. If you are outside of the [facility], contact The [place] Stroke Association at www.strokeassociation.org or 1-953-7-stroke, or for supports groups in your area. Also refer to the Stroke Education booklet you received as part of your stroke education while you were a patient for additional resources Additional Contacts: Evening and Weekend Contacts If you have questions or concerns during evening, weekend, or holiday hours, please call: -[facility] radius corner machine operator at [phone]. -[facility] radius corner machine operator at [phone] Ask the radius corner machine operator to page the on-call doctor for [...] Other reference numbers: [facility] Intake Office at 646-993-7618; [facility] at [phone]; or Suicide Prevention Hotline at 744-124-2805. *Helpful phone numbers: Free Crisis Hotline: 3-248-899-TALK ( ) Suicide Hotline: 735.726.9624 Seniors Suicide Hotline: 978.409.1468 [facility] Youth: 431.525.9594 [facility] [place]: 678.862.8566 (free counseling) [employer] Access Hotline: 477-509-IOYI (108-056-3342) 24-hour crisis text hotline: Text the word 4hope to 251-935 for crisis support. Texting this number is [...] you may qualify for Medicaid/public assistance: The [facility] can now process alanis (TANF), food (SNAP) and Medicaid Applications over the phone. Please call [phone] ([phone]) and apply over the phone or apply online at www.benefits.[place].gov. Friday-Friday 8am-12pm noon. Medication Assistance Programs [employer] members can buy 100+ common prescriptions for FREE, $3 or $6. Annual membership is $36 for individuals and $72 for families (up to 6 people, including pets). Sign up online or enroll at your nearest pharmacy! -[employer], web site can provide a significant number [...] take each medicine. Include all prescription and cclk-fgw-spnjgni medicines, vitamins, and supplements. Keep this list [...] plan your refills so that you can mushroom picker all your medicines at the same [...] -Fever or chills documented in this encounter [facility] 09-21-2022 Emergency department Note Report called to [facility]. Pt transported to [facility] 1082 [facility] Emergency department Note Report called [...] MRI- negative. Labs pending. Call from ED [phone] Entered By: Jacinda Quintana RN Called to [...] during ED stay. Robel Johansen MD 09/21/22 0652 Robel Johansen MD 09/21/22 6144 Per EMS report, pt into [facility] on [...] Coordination: Coordination abnormal (L worse than R). Idpphx-Fvek-Zwdvqy Test abnormal (L). Heel to Winter Test [...] Deepthi Yi MD Emergency Medicine PGY-1 [facility] Pager: [phone] Deepthi Yi MD Resident 09/21/22 1410 Bed: E026 Expected date: Expected time: Means of arrival: Comments: [facility]- Expected Reese documented in this encounter [facility] 09-21-2022 Emergency department Note Attempted to call report to [facility]. Oncoming RN may call [phone] for report [facility] 09-21-2022 Emergency department Note Received report on patient. A&Ox4, answering questions appropriately, and following commands. NIH as documented in flowsheets. States numbness in L hand is Better than it was . Resting in bed on monitor. Family at bedside. Call light provided [facility] 09-21-2022 Physician Emergency department Note Signout: Ari [...] L sided discoordination and paresthesias. Admitted to neurovas 1553 Called to the bedside due to concerns for worsening LUE weakness and paresthesias. NIH 5. Neurovasc team informed. Will replace IV and obtain CTA stat Pending labs/images/consults: 1. CTA brain/neck The [facility] Jennifer Bah MD Resident 09/21/22 1555 [facility] Work Phone: 09-21-2022 Progress note Formatting of t his note might be different from the original. I certify that this patient requires inpatient services at this time. I anticipate the expected length of stay will include at least two midnights. Inpatient services are due to the following medical concerns stroke. Plans for post hospitalization care will be discharge to pending. [facility] 09-21-2022 Note Acute Coronary Syndr ome (ACS): Initial Evaluation and Management: [email or web address]/sites /ebm/Documents/Guidelines/Acute%2 0Coronary%20Syndrome.pdf#search=leeann laws [facility] 09-21-2022 Physician Emergency department Note Images from [...] have some residual facial numbness. He saw opho who was concerned by his eye exam [...] MRI- negative. Labs pending. Call from ED [phone] Entered By: Jacinda Quintana RN Called to [...] during ED stay. Robel Johansen MD 09/21/22 4212 Robel Johansen MD 09/21/22 9218 [facility] Work Phone: 09-21-2022 Emergency department Note [...] [facility] 09-21-2022 Physician Emergency department Note EMERGENCY DEPARTMENT [...] Coordination: Coordination abnormal (L worse than R). Nelpun-Vwrb-Ehfesf Test abnormal (L). 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 [place] [address] [facility] Speech Therapy [address] [place] [address] Referral ID Status Reason Start Date Expiration Date V isits Requested Visits Authorized [id number] New Request 09/23/2022 10/18/2023 1 1 Scheduling Instructions [facility] [address] [facility], 2nd [place] [address] Fax Outpatient Rehabilitation Outpatient [facility] [place] [address] [facility], [address] [place] [address] FAX Outpatient Rehabilitation Outpatient Care [address] [place] [address] FAX [facility] [address] [address] FAX [facility] [address] [place], [place] [id number] FAX Specialty Diagnoses / Procedures Referred By Pan bradshaw Referred To Contact Occupational Therapy Diagnoses Ischemic stroke James Ward ODD PIECE CHECKER-ABE TEACHER [address] [place] [address] Referral ID Status Reason Start Date Expiration Date V isits Requested Visits Authorized [id number] New Request 09/23/2022 10/18/2023 1 1 Scheduling Instructions [facility] [address] [facility], 2nd [place] [address] FAX Outpatient Rehabilitation Out[facility] [place] [address] [facility], [address] [place] [address] FAX [facility] at [address] [address] FAX [facility]Upper [facility]remity and Hand Therapy) [address] [facility], [address] [facility] [address] FAX [facility] [address] 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 [place] [address] Referral ID Status Reason Start Date Expiration Date V isits Requested Visits Authorized [id number] New Request 09/23/2022 10/18/2023 1 1 Scheduling Instructions [facility] [address] [facility], [facility] [place] [address] Fax [facility] (Neck and Back Therapy) [address] [place], [place] [address] [phone] FAX [facility] [address] [place] [address] [phone] FAX Outpatient Rehabilitation Outpatient [facility] [place] [address] [facility] [address] [place] [address] [phone] FAX [facility] [address] [place] [address] [phone] FAX Physical Therapy at [facility] [address] [place], [place] [address] [phone] FAX [facility] [address] [place], [place] [address] [phone] FAX Continued on next page Outpatient Rehabilitation Outpatient Care [address] [place] [address] [phone] FAX [facility] [address] [facility], [address] [place] [address] [phone] FAX Specialty Diagnoses / Procedures Referred By Pan bradshaw Referred To Contact Diagnoses Ischemic stroke Procedures ECHOCARDIOGRAM AK ECHO HEART XTHORACIC,COMPLETE W DOPPLER James Ward ODD PIECE CHECKER-ABE TEACHER 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 [place] [phone] Referral ID Status Reason Start Date Expiration Date V isits Requested Visits Authorized [id number] New Request 09/23/2022 10/18/2023 1 1 Specialty Diagnoses / Procedures Referred By Contac t Referred To Contact Occupational Therapy Diagnoses Cerebrovascular accident (CVA) due to stenosis of right posterior cerebral artery Hilda Matthews, ODD PIECE CHECKER-ABE TEACHER [address] [place] [phone] Referral ID Status Reason Start Date Expiration Date V isits Requested Visits Authorized [id number] New Request 09/22/2022 10/17/2023 1 1 Specialty Diagnoses / Procedures Referred By Contac t Referred To Contact Neurology Diagnoses Cerebrovascular accident (CVA) due to stenosis of right posterior cerebral artery Hilda Matthews, ODD PIECE CHECKER-ABE TEACHER [address] [place], [place] [phone] Referral ID Status Reason Start Date Expiration Date V isits Requested Visits Authorized [id number] New Request 09/22/2022 10/17/2023 1 1 Specialty Diagnoses / Procedures Referred By Contac t Referred To Contact Procedures PLATELET MONITORING PER PROTOCOL Tiffani Camargo MD [address] [place] [address] Referral ID Status Reason Start Date Expiration Date V isits Requested Visits Authorized [id number] Pending Review 09/21/2022 10/16/2023 1 1 Specialty Diagnoses / Procedures Referred By Contac t Referred To Contact Procedures DVT/VTE RISK ASSESSMENT Tiffani Camargo MD [address] [place], [place] [phone] Referral ID Status Reason Start Date Expiration Date V isits Requested Visits Authorized [id number] Pending Review 09/21/2022 10/16/2023 1 1 Advance [...] Expiration Date Visits Re quested Visits Authorized [id number] 1 1 Reason Comments Follow-up Scheduled Active [...] Ellison, DALLIN) 0402 (See Alternative - Provider: Jag Ellison, DALLIN) Acetaminophen (TYLENOL) tablet 325 mg(Linked [...] (See Alternative - Provider: Opal Acevedo RN)46 (See Alternative - Provider: Opal Acevedo RN)09 (See Alternative - Provider: Mayuri Mayes RN)2104 [...] 1451 (See Alternative - Provider: Daniel Rubi RN)2042 (See Alternative - Provider: Romaine Melton RN) 26 (See Alternative - Provider: Opal Acevedo RN)46 (Given - Provider: Opal Acevedo RN)0916 (See Alternative - Provider: Mayuri Mayes RN)2104 (See Alternative - Provider: Jag Ellison RN) 0402 (See Alternative - Provider: Jag Ellison RN) [...] 50% needed, contact pharmacy [facility] ++ glucose (GLUTOSE) 40 % oral gel 1-2 Tube(Linked Group 2) 1-2 Tube, Oral, ADMINISTER DIRECTED, Starting on 09/21/22 at 1353, Until Fri09/23/22 at 1558, Blood glucose <80 mg/dL, For [...] NEEDED, Starting on 09/22/22 at 0051, Until Fri09/23/22 at 1558, Nausea / Vomiting, Headaches, For [...] glucose is greater than 200md/dl, then notify Access [facility]. And BLOOD GLUCOSE (POC DEVICE) (CANCELED) Routine, [...] 50% needed, contact pharmacy [facility] cart ++
And glucose (GLUTOSE) 40 [...] at 1354, Until Specified
Who to Notify: Access Lead
For all Blood Glucose LESS THAN 80 mg/dl, notify Access Lead after treatment per Hypoglycemia in Non- Adults [...] Care Teams (unrecognized sec tion and content) Compliance Mgr Relationship Specialty Start Date End Date Edvin Polanco MD [address] [place] [address] PCP - General Family Medicine 09/16/22 Ventura Wells MD [facility] [place] [address] Psychiatry 11/01/22 (unrecognized sect ion [...] BE BASED ON THE PRIMARY CLINICAL RECORDS. [employer] provides no warranty or guarantee of the accuracy or completeness of information in this document.
[2023-06-05 15:56] LABS: Vitamin B12 354 pg/mL (211-911)
[2023-06-05 16:37] LABS: Cholesterol 122 mg/dL (200); High Density Lipoprotein 46 mg/dL; Iron 65 ug/dL (65-175); Iron Binding Capacity,Total 442 ug/dL (250-450); Thyroid Stim Hormone (TSH) 1.22 uIU/mL (0.358-3.74); Triglycerides 116 mg/dL; Very Low Density Lipoprotein 23 mg/dL (5-40)
== END | disposition home or self-care (01) ==
LOC: MTLAB 12:50
PROVIDERS: PCP Family Medicine; Referring Provider Family Medicine; Visit Provider Family Medicine
DX: E11.8 Type 2 diabetes mellitus with unspecified complications (principal); R53.83 Other fatigue
CPT/HCPCS: 36415; 80061; 82607; 82746; 83540; 83550; 84443

== ENCOUNTER → 2023-10-20 | Outpatient (CLI) | payer OTHER, SELFPAY ==
[2023-10-20 10:08] LABS: Mucous, Urine 0 SEEN /hpf (<or=2+); Squamous Epithelial Cells - UA 0 SEEN /hpf (0-5)
[2023-10-20 10:13] LABS: Color, Urine Yellow (Yellow); Glucose, Dipstick 1000 mg/dl (Normal); Ketone-Dipstick Negative (Negative); Leukocyte Esterase-Dipstick 500 /ul (Negative); Nitrite-Dipstick Positive (Negative); Occult Blood-Urine 250 /ul (Negative); Protein-Dipstick 500 mg/dl (Negative); Specific Gravity, Urine 1.015 (1.002-1.030); Urine Bilirubin Dipstick Negative (Negative); Urine Clarity Cloudy (Clear); Urine Urobilinogen Normal (Normal)
[2023-10-20 10:30] LABS: Bacteria 2+ /hpf (None Seen); Red Blood Cells-Urine 25-50 SEEN /hpf (0-5); White Blood Cells 25-50 SEEN /hpf (0-5)
== END | disposition home or self-care (01) ==
PROVIDERS: PCP Family Medicine; Referring Provider Nurse Practitioner Family; Visit Provider Nurse Practitioner Family
DX: R30.0 Dysuria (principal)
CPT/HCPCS: 81001; 87077; 87086; 87088; 87186

== ENCOUNTER → 2023-12-11 | Outpatient (CLI) | payer OTHER, SELFPAY ==
[2023-12-11 18:18] LABS: Microalbumin,Random Urine < 5.0 mg/L (NO RANGE EST.)
== END | disposition home or self-care (01) ==
LOC: MFPLAB 16:51
PROVIDERS: PCP Family Medicine; Visit Provider Family Medicine
DX: I10 Essential (primary) hypertension (principal)
CPT/HCPCS: 82043; 82570

== ENCOUNTER → 2024-03-18 | Outpatient (CLI) | payer OTHER, SELFPAY ==
[2024-03-18 12:49] LABS: Creatinine, Serum 1.21 mg/dL (0.70-1.30); EST Glomerular Filtration Rate 64 mL/min (>60); Est Glom Filt Rate - Afr Amer 77 mL/min (>60); PSA,Total- Diagnostic 7.37 ng/mL (0.0-4.0)
== END | disposition home or self-care (01) ==
PROVIDERS: PCP Family Medicine
DX: N28.9 Disorder of kidney and ureter, unspecified (principal); R97.20 Elevated prostate specific antigen [PSA]
CPT/HCPCS: 36415; 82565; 84153

== ENCOUNTER → 2024-05-07 | Outpatient (CLI) | payer OTHER, SELFPAY ==
[2024-05-07 10:24] LABS: PSA,Total- Diagnostic 7.26 ng/mL (0.0-4.0)
== END | disposition home or self-care (01) ==
LOC: MTLAB 07:53
PROVIDERS: PCP Family Medicine; Referring Provider Family Medicine; Visit Provider Family Medicine
DX: N40.0 Benign prostatic hyperplasia without lower urinary tract symptoms (principal); E11.8 Type 2 diabetes mellitus with unspecified complications; K76.0 Fatty (change of) liver, not elsewhere classified; E55.9 Vitamin D deficiency, unspecified
CPT/HCPCS: 36415; 84153

== ENCOUNTER → 2024-06-11 | Outpatient (CLI) | payer OTHER, SELFPAY ==
--- NOTE | 2024-06-11 10:54 | MRI_ITS ---
PROCEDURE: PELVIS W/WO CONTRAST (MRIPELWW), 06/11/2024 REASON FOR EXAM: ELEVATED PSA TECHNIQUE: Multisequence multiplanar MRI pelvis was performed with and without IV contrast. CONTRAST: 19 mL [place] COMPARISON: None FINDINGS: Note dynamic postcontrast imaging was not performed; an alternative PI-RADS algorithm was therefore utilized. Prostate size: 5.2 x 3.6 x 5.1 cm, estimated volume 50 mL. Transition zone: PI-RADS 2 findings. Peripheral Zone: Fairly prominent largely linear and wedge-shaped background changes of likely prostatitis (PI-RADS 2). Suspect an extruded transition zone nodule in the lateral aspect of the right mid anterior/posterior peripheral zone. Neurovascular bundles: Unremarkable. Seminal vesicles: Unremarkable. Bladder: Mild wall thickening and trabeculation suggesting chronic bladder outlet obstruction. 3.6 cm left posterolateral bladder diverticulum. Additional tiny 0.7 cm right posterolateral bladder diverticulum. Intraluminal protrusion of exophytic transition zone nodules. Lymph nodes: Unremarkable. Bones: No frankly destructive or suspicious bony lesions identified. Other: Diverticulosis. Small/moderate fat containing left inguinal hernia. Tiny fat containing right inguinal hernia. Suspect vasectomy. MRI/Pelvis W/WO Contrast IMPRESSION: 1. Mild prostatomegaly/BPH and fairly prominent sequela of likely prostatitis w ithout high risk lesion confidently identified (PI-RADS 2). 2. No overt pelvic lymphadenopathy. 3. Additional description as above. Reading Location: [id number]
== END | disposition home or self-care (01) ==
LOC: MRI 10:52
PROVIDERS: PCP Family Medicine; Referring Provider Urology; Visit Provider Urology
DX: R97.20 Elevated prostate specific antigen [PSA] (principal)
CPT/HCPCS: 72197; A9575

== ENCOUNTER → 2024-06-25 | Outpatient (CLI) | payer OTHER, SELFPAY ==
--- NOTE | 2024-06-25 08:33 | CT_ITS ---
PROCEDURE: ABDOMEN W/WO IV CONTRAST 06/25/2024 REASON FOR EXAM: L1-L2 LATERAL POSTERIOR VS. LATERAL ANTERIOR L1-L2 L LATERAL MASS TECHNIQUE: Abdomen CT with intravenous contrast. Coronal and Sagittal reconstruction series were provided. One or more dose reduction techniques were used (e.g., Automated exposure control, adjustment of the mA and/or kV according to patient size, use of iterative reconstruction technique. PATIENT PREPARATION: Per protocol ORAL CONTRAST TYPE: None. Loss at call bandage over us referral here from a chiropractor that felt something on the patient in the heads of the I have no idea why 2nd expansile rib lesion thick cortical 9 looks benign skull that an exostosis or enchondroma or outlined no exostosis or osteochondroma are supplemented are CONTRAST: VOLUME: 100mL IV RADIATION DOSE SUMMARY: CTDlvol: 17.33 mGy DLP: 775.00 mGycm COMPARISON: None. FINDINGS: Lung bases: Lung bases are clear. No pleural effusions. Liver: Unremarkable Gallbladder: Unremarkable Spleen: Normal Pancreas: Normal Adrenals: Normal Kidneys: Normal Bowel: Unremarkable Lymph nodes: None. Vasculature: Unremarkable Peritoneum / Retroperitoneum: No free air or free fluid. Bones: Right rib lesions with benign features with smooth sclerotic margin well- circumscribed benign/noninvasive characteristics of this right rib lesion. Osteochondroma versus exostosis versus other benign lesion Other: Fat containing left inguinal hernia. Very small fat containing umbilical hernia. This larger lesion appears to be located at right rib 10. Smaller more central lesion located at right rib 11 CT/Abdomen W/WO IV Contrast IMPRESSION: No acute findings. Fat containing left inguinal hernia 2 rib lesions identified both of which appear nonaggressive see above Reading Location: [facility]
[2024-06-25 08:52] LABS: CREATININE FINGERSTICK 1.1 mg/dL (0.70-1.30); EGFR FINGERSTICK > 60.0000 mL/min (>60)
== END | disposition home or self-care (01) ==
PROVIDERS: PCP Family Medicine; Referring Provider Family Medicine; Visit Provider Family Medicine
DX: R19.02 Left upper quadrant abdominal swelling, mass and lump (principal)
CPT/HCPCS: 74170; Q9967

== ENCOUNTER → 2024-08-27 | Outpatient (CLI) | payer MEDICARE, OTHER, SELFPAY ==
[2024-08-27 15:08] LABS: Absolute Lymphocyte Count 1.36 X10^3/uL (0.83-4.51); Absolute Neutrophil Count 5.9 X10^3/uL (2.0-7.7); Basophil# 0.03 X10^3/uL; Basophil% 0.4 % (0-1); Eosinophils% 2.5 % (0-5); Hemoglobin 15.8 g/dL (13.0-16.5); Lymphocyte # 1.36 X10^3/ul (0.83-4.51); Lymphocyte % 16.8 % (19-41); Mean Corp Hgb Conc 33.6 g/dL (32-36); Mean Corpuscular Hgb 31.9 pg (27.0-32.0); Mean Corpuscular Volume 94.8 fL (80-94); Monocyte# 0.52 X10^3/uL; Monocyte% 6.4 % (0-10); NRBC Flagged by Analyzer 0 % (0-5); Platelet Count 227 K/mm3 (150-450); RBC Distribution Width CV 13.7 % (11.6-14.6); RBC Distribution Width SD 47.4 fl (35.1-43.9); Red Blood Count 4.96 M/mm3 (4.6-6.2); White Blood Count 8.1 K/mm3 (4.4-11.0)
[2024-08-27 15:51] LABS: Microalbumin,Random Urine < 12.0 mg/L (NO RANGE EST.); Microalbumin:Creatinine Ratio UNABLE TO CALCULATE mg/g CRE
[2024-08-27 16:28] LABS: Hemoglobin A1c 6.8 % (<=5.6)
[2024-08-27 16:42] LABS: ALB/GLOB Ratio 1.8 RATIO (0.9-2.4); AST(SGOT) 22 U/L (<=37); Alanine Aminotransfer ALT/SGPT 31 U/L (<=46); Albumin, Serum 4.9 g/dL (3.4-4.8); Alkaline Phosphatase 133 U/L (40-129); Anion Gap 16 (5-15); BUN 15 mg/dL (4-19); BUN/Creat Ratio 16.1 RATIO (10-20); Calcium,Total 9.8 mg/dL (7.6-11.0); Carbon Dioxide 21.5 mmol/L (21.0-32.0); Chloride 99 mmol/L (98-108); EST Glomerular Filtration Rate 94 (>60); Globulin 2.8 g/dL (2.2-4.2); Glucose 165 mg/dL (70-99); Potassium 3.6 mmol/L (3.3-5.1); Protein, Total 7.7 g/dL (5.9-8.4); Sodium Level 137 mmol/L (133-145)
[2024-08-30 16:08] LABS: PROEL- A/G Ratio 1.3 (0.7-1.7); PROEL- Albumin 4.1 g/dL (2.9-4.4); PROEL- Alpha-1 Globulin 0.3 g/dL (0.0-0.4); PROEL- Alpha-2 Globulin 0.8 g/dL (0.4-1.0); PROEL- Beta Globulin 1.3 g/dL (0.7-1.3); PROEL- Gamma Globulin 0.7 g/dL (0.4-1.8); PROEL- Globulin, Total 3.1 g/dL (2.2-3.9); PROEL- TOTAL PROTEIN 7.2 g/dL (6.0-8.5); PROEL-M-Spike Not Observed g/dL (Not Observed)
== END | disposition home or self-care (01) ==
PROVIDERS: PCP Family Medicine; Referring Provider Family Medicine; Visit Provider Family Medicine
DX: D16.9 Benign neoplasm of bone and articular cartilage, unspecified (principal); E11.8 Type 2 diabetes mellitus with unspecified complications
CPT/HCPCS: 36415; 80053; 82043; 82570; 83036; 84165; 84403; 85025

== ENCOUNTER → 2024-12-17 | Outpatient (CLI) | payer MEDICARE, OTHER, SELFPAY ==
[2024-12-17 13:18] LABS: PSA,Total - Annual Screen 5.03 ng/mL (0.02-4.00)
== END | disposition home or self-care (01) ==
LOC: MFPLAB 10:01
PROVIDERS: PCP Family Medicine; Referring Provider Nurse Practitioner; Visit Provider Nurse Practitioner
DX: R97.20 Elevated prostate specific antigen [PSA] (principal)
CPT/HCPCS: 36415; 84153; G0103

== ENCOUNTER → 2025-01-12 | Outpatient (CLI) | payer MEDICARE, OTHER, SELFPAY ==
--- NOTE | 2025-01-12 09:30 | CT_ITS ---
PROCEDURE: EXTREMITY LOWER WITHOUT CONTRA 01/12/2025 REASON FOR EXAM: KNEE PAIN Pre-surgical planning. [facility] protocol. TECHNIQUE: Procedure Code: CTELWO Modality: CT Procedure: EXTREMITY LOWER WITHOUT CONTRA left Coronal and Sagittal reconstruction series were provided. One or more dose reduction techniques were used (e.g., Automated exposure control, adjustment of the mA and/or kV according to patient size, use of iterative reconstruction technique. RADIATION DOSE SUMMARY: CTDlvol: 55 mGy DLP: 1205 mGycm COMPARISON: None FINDINGS: Bones: The visualized left hip, knee and ankle are intact without acute fracture or dislocation. Joints: Moderate to severe tricompartmental knee degenerative changes. Soft Tissues: Trace/small joint knee joint effusion. Small fat containing left inguinal hernia. Moderate size left posterior urinary bladder diverticulum. The remainder of the unenhanced soft tissues are grossly unremarkable CT/Extremity Lower without Contra IMPRESSION: 1. No acute osseous abnormality for this pre-surgical planning CT as above. 2. Incidentally noted, moderate to large left posterior urinary bladder diver ticulum. Reading Location: [facility]
[2025-01-12 17:08] LABS: Magnesium 1.6 mg/dL (1.5-2.2)
== END | disposition home or self-care (01) ==
LOC: CT 09:08
PROVIDERS: Anesthesiology; PCP Family Medicine; Referring Provider Student in an Organized Health Care Education/Training Program; Visit Provider Student in an Organized Health Care Education/Training Program
DX: Z01.818 Encounter for other preprocedural examination (principal); M25.562 Pain in left knee
CPT/HCPCS: 73700; 83735

== ENCOUNTER 2025-01-27 13:13 | Observation (INO) | payer MEDICARE, SELFPAY ==
--- NOTE | 2025-01-12 09:01 | EKG12_ITS ---
Test Reason : PRE OP Blood Pressure : */* mmHG Vent. Rate : 69 BPM Atrial Rate : 69 BPM P-R Int : 212 ms QRS Dur : 84 ms QT Int : 376 ms P-R-T Axes : 34 7 55 degrees QTcB Int : 402 ms Sinus rhythm with 1st degree A-V block Otherwise normal ECG Confirmed by JANA ZHU, OSEI ([id number]), web editor JEAN LENNON ([id number]) on 01/13/2025 6:30:36 AM Referred By: Aaron Davis Confirmed By: OSEI BATES MD
[2025-01-12 09:52] LABS: Hematocrit 41.9 % (40-54); Hemoglobin 14.5 g/dL (13.0-16.5); Immature Granulocytes Count 0.020 X10^3/uL (0.0-0.0); Mean Corp Hgb Conc 34.6 g/dL (32-36); Mean Corpuscular Volume 92.1 fL (80-94); Mean Platelet Vol. 9.6 fl (6.2-12.0); NRBC Flagged by Analyzer 0 % (0-5); Platelet Count 180 K/mm3 (150-450); RBC Distribution Width CV 14.0 % (11.6-14.6); RBC Distribution Width SD 47.4 fl (35.1-43.9); Red Blood Count 4.55 M/mm3 (4.6-6.2); White Blood Count 6.1 K/mm3 (4.4-11.0)
[2025-01-12 10:34] LABS: Albumin, Serum 4.5 g/dL (3.4-4.8); Anion Gap 12 (5-15); BUN 20 mg/dL (4-19); BUN/Creat Ratio 22.4 RATIO (10-20); Calcium,Total 9.8 mg/dL (7.6-11.0); Carbon Dioxide 23.8 mmol/L (21.0-32.0); Chloride 105 mmol/L (98-108); Glucose 134 mg/dL (70-99); Potassium 4.1 mmol/L (3.3-5.1)
--- NOTE | 2025-01-12 17:35 | PAT.ANESEVAL ---
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 When Was Last Pacemaker Check QUESTION #4 FULL TEXT: You/Your Family Experience fever (hyperthermia) with Anesthesia Last Oral Intake Last Oral intake: Last Oral Intake NPO since Meds taken in AM with sips of water? 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 Female No 01/12/25 15:50 HX of Motion Sickness Yes 01/12/25 15:50 HX of N/V After Surgery No 01/12/25 15:50 Non-Smoker Yes 01/12/25 15:50 Duration of Surgery greater Yes 01/12/25 15:50 than 60 minutes Number of Risk Factors 3 01/12/25 15:50 PONV Score Moderate Risk 01/12/25 15:50 Height & Weight Height & Weight: Anesthesia: Height & Weight Height 5 ft 10 in 10/18/23 10:23 Respiratory Assessment Respiratory Assessment - railroad yard worker: Respiratory Tract Infection Hx - railroad yard worker Hx Respiratory Tract Infection No 01/12/25 15:50 STOP Sleep Apnea STOP Sleep Apnea - railroad yard worker: STOP Sleep Apnea - railroad yard worker Hx Hypertension Yes: CONTROLLED WITH MED 01/12/25 15:50 Hx Sleep Apnea Yes 01/12/25 15:50 CPAP Yes 01/12/25 15:50 BIPAP No 01/12/25 15:50 Do you snore loudly (louder than talking or can be heard Do you often feel tired/ fatigued/ sleepy during daytime? Has anyone observed you stop breathing during sleep? STOP Results Positive 01/12/25 15:50 QUESTION #5 FULL TEXT : Do you snore loudly (louder than talking or can be heard through closed doors)? 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 Specify any problems Hx of Preganancy in last 3 N/A 01/12/25 15:50 Months Nurse Filling Out Transfusion DSCHRIBER 01/12/25 15:50 & Questions: Date: 01/12/25 01/12/25 15:50 Time: 15:56 01/12/25 15:50 Patient unable to answer at this time (ie. confused, unrespo /Reproduction History /Reproductive History - railroad yard worker: /Reproductive Hx- railroad yard worker Hx Now No 01/12/25 15:50 Gestational Age (in weeks): EDC: Hx Hx Para Hx Section SAB No 01/12/25 15:50 PFSH Medical History (Updated 01/12/25 @ 16:08 by Isabela Suarez) Wears glasses Alcohol use Ambulates with cane Rheumatoid arthritis Prostate disease Fatty liver Restless legs Back pain Dietary restriction History of diverticulitis Gastric reflux Former smoker Shortness of breath on exertion CPAP (continuous positive airway pressure) dependence History of pain when walking Stroke/cerebrovascular accident History of echocardiogram High cholesterol HTN (hypertension) Diabetes Home Medications Medication Instructions Recorded Last Taken Type leucovorin calcium 5 mg tablet 5 mg PO HANKS 09/16/22 Unknown History methotrexate sodium 2.5 mg tablet 15 mg PO HANKS 09/16/22 Unknown History amlodipine 10 mg tablet (Norvasc) 10 mg PO DAILY #30 tabs 09/17/22 Unknown Rx aspirin 81 mg chewable tablet 81 mg PO BREAKFAST 30 days #30 tabs 09/17/22 Unknown Rx atorvastatin 80 mg tablet 80 mg PO QHS 30 days #30 tabs 09/17/22 Unknown Rx metformin 500 mg tablet 500 mg PO BID 09/21/22 Unknown History ramipril 1.25 mg capsule 1.25 mg PO QHS 09/21/22 Unknown History acetaminophen 325 mg capsule 650 mg PO Q4H PRN pain 01/12/25 Unknown History dapagliflozin propanediol 10 mg 10 mg PO DAILY 01/12/25 Unknown History tablet (Farxiga) diphenhydramine 25 2 tab PO QHS 01/12/25 Unknown History mg-acetaminophen 500 mg tablet loratadine 10 mg tablet (Claritin) 10 mg PO DAILY PRN allergy symptoms 01/12/25 Unknown History omega 7-puy-ule-fish oil 1,200 mg 2 cap PO DAILY 01/12/25 Unknown History (144 mg-216 mg) capsule (Fish Oil) omeprazole 20 mg capsule,delayed 20 mg PO DAILY 01/12/25 Unknown History release tamsulosin 0.4 mg capsule 0.4 mg PO QHS 01/12/25 Unknown History Allergy/AdvReac Type Severity Reaction Status Date / Time No Known Allergies Allergy Verified 01/12/25 15:37 Family History Other CVA (cerebral vascular accident) Diabetes Surgical History (Updated 01/12/25 @ 16:08 by Isabela Suarez) History of vasectomy Hx of colonoscopy Hx of tonsillectomy Social History Smoking Status: Former smoker Audit: Pertinent Findings Pertinent Findings EKG Perinent findings: EKG September 16/2023. Sinus rhythm with premature atrial complexes Echo (EF%) pertinent findings: Echo 10/02/2022. The estimated ejection fraction is 65%. No evidence for diastolic dysfunction. Recommendation Anesthesia Recommendation Anesthesia recommendation: OPTIMIZED for anesthesia
[2025-01-27] VITALS (14 sets, daily range): BP systolic 115–154; BP diastolic 64–87; PULSE 68–87; RESP 16–18; TEMP 36.6–37.1; O2SAT 93–97; BMI 29.2
[2025-01-27] MEDS: Magnesium 2 GM for ERAS IV (09:17)
[2025-01-27] MEDS: LR 1,000 ML - BOLUS PREOP 999 ML IV (09:17)
--- NOTE | 2025-01-27 09:52 | PRE.ANES_ITS ---
ASA Classification* ASA Classification ASA Classification: 3 Assessment & Plan Anesthesia* Anesthesia Assessment Anesthesia Assessment: Discussed sedation and/or anesthesia options, risks, benefits, and alternatives with patient/parents/legal guardian/POA. Questions invited. The patient/parents/legal guardian/POA seems to understand and agrees to proceed with anesthesia plan. Reviewed the physical assessment, medical history, allergy history and patient home medications list prior to surgery/procedure/anesthetic and documented any changes. Performed airway and anesthesia risk assessments. Anesthesia Type Anesthesia Type: Spinal (General Backup) and Block Anesthesia Focused Assessment* Temperature: 98.7 F Pulse Rate: 75 Blood Pressure: 154/87 Respiratory Rate: 16 Pulse Ox: 97 Airway Assessment Mouth opens: >3 cm Mallampati Score: II Labs Anesthesia Preop lab: CBC WBC, (4.4-11.0) 6.1 K/mm3 01/12/25, 09:36 RBC, (4.6-6.2) 4.55 M/mm3 L 01/12/25, 09:36 Hgb, (13.0-16.5) 14.5 g/dL 01/12/25, 09:36 Hct, (40-54) 41.9 % 01/12/25, 09:36 Plt Count, (150-450) 180 K/mm3 01/12/25, 09:36 CHEMISTRY Potassium, (3.3-5.1) 4.1 mmol/L 01/12/25, 09:36 Sodium, (133-145) 140 mmol/L 01/12/25, 09:36 Magnesium, (1.5-2.2) 1.6 mg/dL 01/12/25, 16:17 BUN, (4-19) 20 mg/dL H 01/12/25, 09:36 Creatinine, (0.70-1.20) 0.88 mg/dL 01/12/25, 09:36 Glucose, (70-99) 134 mg/dL H 01/12/25, 09:36 POC Glucose, (74-106) 215 mg/dL H Today, 09:18 TSH, (0.358-3.74) 1.22 uIU/mL 06/05/23, 12:50 COAG PT, (11.7-14.9) 12.6 SECONDS 09/16/22, 19:40 Pre-Assessment Diagnosis/Proposed Procedure Planned Operative Procedure(s): ERAS ROBOTIC ASSISTED LEFT TOTAL KNEE ARTHROPLASTY Anesthesia History Anesthesia History - [facility]: Anesthesia History - [facility] attendant Hx Hospitalization No 01/12/25 15:50 Any Problems With Anesthesia No 01/12/25 15:50 Cholinesterase deficiency No 01/12/25 15:50 You/Your Family Experience No 01/12/25 15:50 fever (hyperthermia) with Relationship Recent Exposure to Contagious No 01/27/25 09:20 Disease Does patient have nerve No 01/12/25 15:50 stimulator Patient instructed to have device shut off --Does patient have Pacemaker No 01/27/25 09:20 or ICD? When Was Last Pacemaker Check QUESTION #4 FULL TEXT: You/Your Family Experience fever (hyperthermia) with Anesthesia Last Oral Intake Last Oral intake: Last Oral Intake NPO since 06:30 01/27/25 09:20 Meds taken in AM with sips of Yes 01/27/25 09:20 water? Meds patient instructed to omeprazole, amlodipine, 01/27/25 09:20 take am of surgery PONV PONV - [facility] attendant: PONV - [facility] attendant Female No 01/12/25 15:50 HX of Motion Sickness Yes 01/12/25 15:50 HX of N/V After Surgery No 01/12/25 15:50 Non-Smoker Yes 01/12/25 15:50 Duration of Surgery greater Yes 01/12/25 15:50 than 60 minutes Number of Risk Factors 3 01/12/25 15:50 PONV Score Moderate Risk 01/12/25 15:50 Height & Weight Height & Weight: Anesthesia: Height & Weight Height 5 ft 9 in 01/27/25 09:20 Weight: 90 kg 01/27/25 09:20 Body Mass Index (BMI) 29.2 01/27/25 09:20 Respiratory Assessment Respiratory Assessment - [facility] attendant: Respiratory Tract Infection Hx - [facility] attendant Hx Respiratory Tract Infection No 01/12/25 15:50 STOP Sleep Apnea STOP Sleep Apnea - [facility] attendant: STOP Sleep Apnea - [facility] attendant Hx Hypertension Yes: CONTROLLED WITH MED 01/12/25 15:50 Hx Sleep Apnea Yes 01/12/25 15:50 CPAP Yes 01/12/25 15:50 BIPAP No 01/12/25 15:50 Do you snore loudly (louder than talking or can be heard Do you often feel tired/ fatigued/ sleepy during daytime? Has anyone observed you stop breathing during sleep? STOP Results Positive 01/12/25 15:50 QUESTION #5 FULL TEXT : Do you snore loudly (louder than talking or can be heard through closed doors)? 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 Specify any problems Hx of Preganancy in last 3 N/A 01/12/25 15:50 Months Nurse Filling Out Transfusion DSCHRIBER 01/12/25 15:50 & Questions: Date: 01/12/25 01/12/25 15:50 Time: 15:56 01/12/25 15:50 Patient unable to answer at this time (ie. confused, unrespo /Reproduction History /Reproductive History - [facility] attendant: /Reproductive Hx- [facility] attendant Hx Now No 01/12/25 15:50 Gestational Age (in weeks): EDC: Hx Hx Para Hx Section SAB No 01/12/25 15:50 Active Medications Active Medications: Current Medications Generic Name Dose Route Start Last Admin Trade Name Freq PRN Reason Stop Dose Admin Lactated Ringer's 1,000 mls @ 999 mls/hr 01/27/25 09:15 01/27/25 09:17 IV 01/27/25 10:15 999 mls/hr .Q1H1M MARY Administration Cefazolin Sodium 2 gm/ Sodium 110 mls @ 150 mls/hr 01/27/25 09:15 Chloride IV 01/27/25 09:58 INTRAOP ONE Lactated Ringer's 1,000 mls @ 999 mls/hr 01/27/25 10:15 IV 01/27/25 11:15 .Q1H1M MARY Lactated Ringer's 1,000 mls @ 125 mls/hr 01/27/25 11:15 IV 01/27/25 19:14 .Q8H MARY Insulin Human Lispro 1 - 6 unit 01/27/25 09:15 01/27/25 09:47 Insulin Lispro 100 Unit/Ml Insuln.Pen SC 01/27/25 15:15 1 u Q4H PRN PRN Administration BG>/= 180, SEE PROTOCOL Protocol PFS Medical History (Updated 01/12/25 @ 16:08 by Isabela Suarez) Wears glasses Alcohol use Ambulates with cane Rheumatoid arthritis Prostate disease Fatty liver Restless legs Back pain Dietary restriction History of diverticulitis Gastric reflux Former smoker Shortness of breath on exertion CPAP (continuous positive airway pressure) dependence History of pain when walking Stroke/cerebrovascular accident History of echocardiogram High cholesterol HTN (hypertension) Diabetes Home Medications Medication Instructions Recorded Last Taken Type leucovorin calcium 5 mg tablet 5 mg PO HANKS 09/16/22 History methotrexate sodium 2.5 mg tablet 15 mg PO HANKS 09/16/22 01/23/25 History amlodipine 10 mg tablet (Norvasc) 10 mg PO DAILY #30 t abs 09/17/22 01/27/25 Rx aspirin 81 mg chewable tablet 81 mg PO BREAKFAST 30 da ys #30 tabs 09/17/22 01/23/25 Rx atorvastatin 80 mg tablet 80 mg PO QHS 30 days #30 tab s 09/17/22 01/26/25 Rx metformin 500 mg tablet 500 mg PO BID 09/21/2201/27 History ramipril 1.25 mg capsule 1.25 mg PO QHS 09/21/2212/30 History acetaminophen 325 mg capsule 650 mg PO Q4H PRN pain 01/26/25 History dapagliflozin propanediol 10 mg 10 mg PO DAILY 5 01/23/25 History tablet (Farxiga) diphenhydramine 25 2 tab PO QHS 01/12/25 History mg-acetaminophen 500 mg tablet loratadine 10 mg tablet (Claritin) 10 mg PO DAILY PRN allergy symptoms 01/12/25 01/26/25 History omega 3-twz-dlq-fish oil 1,200 mg 2 cap PO DAILY 01/1201/23/25 History (144 mg-216 mg) capsule (Fish Oil) omeprazole 20 mg capsule,delayed 20 mg PO DAILY 01/27/25 History release tamsulosin 0.4 mg capsule 0.4 mg PO QHS 01/12/2501/26 History Allergy/AdvReac Type Severity Reaction Status Date / Time No Known Allergies Allergy Verified 01/27/25 08:47 Family History Other CVA (cerebral vascular accident) Diabetes Surgical History (Updated 01/12/25 @ 16:08 by Isabela Suarez) History of vasectomy Hx of colonoscopy Hx of tonsillectomy Social History Smoking Status: Former smoker Review of Systems (Anesthesia) ROS Narrative System reviewed and no additional complaints, except as documented.
[2025-01-27] MEDS: Midazolam 2 MG/2 ML Syringe IV (10:56)
[2025-01-27] MEDS: Cefazolin 1 GM/5 ML Vial 2 GM IV (11:18)
[2025-01-27] MEDS: Lidocaine 1% (5 ml sdv) 5 ML Vial 8 ML IV (11:24)
[2025-01-27] MEDS: TRANEXAMIC ACID 1,000 MG/10 ML ML 2000 MG IV (12:22)
[2025-01-27] MEDS: JPS (Morphine 10mg/ml) OPERA.SITE (12:30)
[2025-01-27] MEDS: LR 1,000 ML - BOLUS POSTOP 999 ML IV (13:00)
--- NOTE | 2025-01-27 13:10 | PCM.POST.ANE ---
Anesthesia: Postop Eval I Current Vital Signs Temperature: 97.9 F Pulse Rate: 87 Blood Pressure: 124/64 Respiratory Rate: 16 Pulse Ox: 95 Assessment Airway patent: Yes Spontaneous unlabored respirations: Yes nausea: No Vomiting: No Anesthesia Complication: No Fluid Hydration Crystalloid volume administer (ml): 1,600 Total IV fluid infused: 1,600 Progress Note Anesthesia document: Postop Eval 1 completed: Yes
--- NOTE | 2025-01-27 13:22 | RAD_ITS ---
PROCEDURE: KNEE 1 OR 2 VIEWS 01/27/2025 REASON FOR EXAM: L TKA POST OP TECHNIQUE: Procedure Code: Right modality: DX Procedure: KNEE 1 OR 2 VIEWS Laterality: Left knee COMPARISON: None FINDINGS: The patient is status post total knee replacement. There is good alignment. Postoperative soft tissue changes. RAD/Knee 1 or 2 Views IMPRESSION: Status post left total knee replacement. There is good alignment. Postoperative soft tissue changes. Reading Location: [facility]
[2025-01-27] MEDS: LR 1,000 ML - 125 ML/HR (POST BOLUS) POST OP IV (15:29)
--- NOTE | 2025-01-27 15:31 | PCM.CONS.GEN ---
Assessment & Plan Assessment/Plan (1) Status post left knee replacement: PLAN: Plan Patient is a 64-year-old male who presented to [facility] on 01/27/2025 for planned left knee replacement. Medicine consulted postoperatively for medical management. 1. Left knee osteoarthritis – Orthopedic surgery primary. S/p left total knee arthroplasty with Dr. Davis on 01/27. Tolerated procedure well, no intraoperative complications noted. Postoperative pain control, DVT prophylaxis and further management per orthopedics. PT/OT/case management consulted. Follow-up a.m. labs. 2. Postoperative urinary retention, history of BPH with obstructive symptoms – Patient with acute urinary retention requiring straight cath x 1 with improvement in abdominal pain this afternoon. Will need to monitor bladder scans overnight and plan to straight cath as needed, can hopefully avoid Prieto placement. Continue home Flomax. 3. History of CVA, hypertension, hyperlipidemia – History of CVA suspected secondary to right posterior cerebral artery stenosis in 2022. Vascular surgery followed then, no surgical needs, medical therapy was recommended. Patient with no recurrent issues since then. Normotensive postoperatively. Treating with baby aspirin twice daily for DVT prophylaxis as below. Continue home atorvastatin, amlodipine, and ramipril. 4. Type 2 diabetes mellitus – Recent A1c 6.5% on 01/12. Will treat with sliding scale insulin with meals while inpatient. Will be fine to resume home regimen on discharge. 5. Rheumatoid arthritis – Stable. Hold home weekly leucovorin and methotrexate during hospitalization, okay to resume on discharge. 6. GERD – Continue home PPI. DVT prophylaxis: Baby aspirin twice daily per orthopedics Total clinical time spent by myself addressing the patient's medical issues, reviewing all the data, and collaborating with patient's care team: 42 minutes. HPI Consult Data Date of Consult: 01/27/25 HPI Narrative Reason for Consultation: Postoperative medical management HPI Narrative: ARI LEIGH, is a 64 M who presented to [facility] on 01/27/2025 for planned orthopedic procedure. Medicine consulted postoperatively for medical management. Patient had left knee total arthroplasty done with Dr. Davis this afternoon. Tolerated procedure well, no intraoperative complications noted. I saw the patient at bedside this evening postoperatively. He was sitting back comfortably in bedside chair, conversing normally, in no acute distress. Noted that the numbness in his knee was starting to wear off and he was having mild pain and aching. He did have significant abdominal discomfort earlier this afternoon and required straight cath x 1 and notes he felt much improved after this. No other acute concerns this time. [facility] Medical History (Updated 01/12/25 @ 16:08 by Isabela Suarez) Wears glasses Alcohol use Ambulates with cane Rheumatoid arthritis Prostate disease Fatty liver Restless legs Back pain Dietary restriction History of diverticulitis Gastric reflux Former smoker Shortness of breath on exertion CPAP (continuous positive airway pressure) dependence History of pain when walking Stroke/cerebrovascular accident History of echocardiogram High cholesterol HTN (hypertension) Diabetes Home Medications Medication Instructions Recorded Last Taken Type leucovorin calcium 5 mg tablet 5 mg PO HANKS 09/16/22 01/23/25 History methotrexate sodium 2.5 mg tablet 15 mg PO HANKS 09/16/22 01/23/25 History amlodipine 10 mg tablet (Norvasc) 10 mg PO DAILY #30 tabs 09/17/22 01/27/25 Rx aspirin 81 mg chewable tablet 81 mg PO BREAKFAST 30 days #30 tabs 09/17/22 01/23/25 Rx atorvastatin 80 mg tablet 80 mg PO QHS 30 days #30 tabs 09/17/22 01/26/25 Rx metformin 500 mg tablet 500 mg PO BID 09/21/22 01/27/25 History ramipril 1.25 mg capsule 1.25 mg PO QHS 09/21/22 01/26/25 History acetaminophen 325 mg capsule 650 mg PO Q4H PRN pain 01/12/25 01/26/25 History dapagliflozin propanediol 10 mg 10 mg PO DAILY 01/12/25 01/23/25 History tablet (Farxiga) diphenhydramine 25 2 tab PO QHS 01/12/25 01/26/25 History mg-acetaminophen 500 mg tablet loratadine 10 mg tablet (Claritin) 10 mg PO DAILY PRN allergy symptoms 01/12/25 01/26/25 History omega 1-wmh-rhv-fish oil 1,200 mg 2 cap PO DAILY 01/12/25 01/23/25 History (144 mg-216 mg) capsule (Fish Oil) omeprazole 20 mg capsule,delayed 20 mg PO DAILY 01/12/25 01/27/25 History release tamsulosin 0.4 mg capsule 0.4 mg PO QHS 01/12/25 01/26/25 History Allergy/AdvReac Type Severity Reaction Status Date / Time No Known Allergies Allergy Verified 01/27/25 08:47 Family History Other CVA (cerebral vascular accident) Diabetes Surgical History (Updated 01/27/25 @ 18:[address] Mark Vernon, DO) History of vasectomy Hx of colonoscopy Hx of tonsillectomy Social History Smoking Status: Former smoker ROS Constitutional Constitutional: Denies chills, fatigue, fever(s) or weakness Cardiovascular Cardiovascular: Denies chest pain Respiratory/Chest Respiratory/Chest: Denies shortness of breath at rest Gastrointestinal Gastrointestinal: Denies abdominal pain Genitourinary Genitourinary: Reports difficulty urinating; Denies dysuria Musculoskeletal Musculoskeletal: Reports joint pain; Denies myalgias Neurologic Neurologic: Denies dizziness, focal weakness, headache(s), numbness or tingling Physical Exam Const alert, oriented x3, no apparent distress and average body habitus Constitutional Narrative: Pleasant upper middle-age male, sitting up comfortably in bedside chair, conversing normally, in no acute distress. General Appearance: cooperative and comfortable HEENT normocephalic, head/scalp atraumatic, hearing grossly normal bilaterally, nasal mucous membranes and turbinates normal and moist oral mucous membranes Eyes PERRL, EOMs intact bilaterally and conjunctivae normal Neck full ROM Chest inspection of chest normal Resp normal respiratory effort, normal air movement, no use of accessory muscles and clear to auscultation bilaterally Cardio regular rate, regular rhythm, no murmurs and peripheral pulses 2+ throughout GI normal to inspection, nondistended, normoactive bowel sounds, soft to palpation, non-tender and non-distended Back/Spine normal ROM Extremity Extremity Narrative: Left knee with surgical dressing and ice pack in place. Skin no rashes or lesions noted Neuro moves all extremities and no focal motor deficits Psych mental status grossly normal Lab / Micro Data 01/12/25 09:36 01/12/25 09:36 Labs: Laboratory Results - last 24 hr 01/27/25 09:18: POC Glucose 215 H Imaging Radiology Impression Knee X-Ray 01/27/25 13:22 IMPRESSION: Status post left total knee replacement. There is good alignment. Postoperative soft tissue changes. Reading Location: [id number] Charges/Coding Visit Charges Inpatient E&M: 62306 Subs Hosp L2
[2025-01-27] MEDS: Ensure Surgery 237 ML LIQUID PO (16:06)
--- NOTE | 2025-01-27 16:16 | POSTOPAN2_ITS ---
Anesthesia Postop Eval I Sum Postop Eval Completion status Anesthesia document: Postop Eval 1 completed: Yes Anesthesia Postop Eval I Summary Anesthesia Postop Eval I Summary: Anesthesia Postop Eval I: Assessment Summary Airway patent Yes 01/27/25 13:10 PIG CASTING MACHINE OPERATOR.[email or web address] Spontaneous unlabored Yes 01/27/25 13:10 PIG CASTING MACHINE OPERATOR.TNES respirations Mental status nausea No 01/27/25 13:10 PIG CASTING MACHINE OPERATOR.TNES Vomiting No 01/27/25 13:10 PIG CASTING MACHINE OPERATOR.TNES Anesthesia Postop Eval I: Fluid Summary Crystalloid volume administer 1,600 01/27/25 13:10 PIG CASTING MACHINE OPERATOR.TNES (ml) Colloids volume administered ( ml) Blood Product volume administered (ml) Total IV fluid infused 1,600 01/27/25 13:10 PIG CASTING MACHINE OPERATOR.TNES Anesthesia Postop Eval I: Summary Notes Anesthesia Complication No 01/27/25 13:10 PIG CASTING MACHINE OPERATOR.TNES Anesthesia Complication Comment: Post-operative progress note Anesthesia: Postop Eval II Evaluation Mental status: Awake and Calm Pain Level: 0 nausea: No Vomiting: No Complications Anesthesia Complication: No
--- NOTE | 2025-01-27 16:16 | PCM.POSTANE2 ---
Anesthesia Postop Eval I Sum Postop Eval Completion status Anesthesia document: Postop Eval 1 completed: Yes Anesthesia Postop Eval I Summary Anesthesia Postop Eval I Summary: Anesthesia Postop Eval I: Assessment Summary Airway patent Yes 01/27/25 13:10 ACTIVITIES [email or web address] Spontaneous unlabored Yes 01/27/25 13:10 ACTIVITIES [email or web address].[email or web address] respirations Mental status nausea No 01/27/25 13:10 ACTIVITIES [email or web address].[email or web address] Vomiting No 01/27/25 13:10 ACTIVITIES [email or web address].[email or web address] Anesthesia Postop Eval I: Fluid Summary Crystalloid volume administer 1,600 01/27/25 13:10 ACTIVITIES [email or web address].TNES (ml) Colloids volume administered ( ml) Blood Product volume administered (ml) Total IV fluid infused 1,600 01/27/25 13:10 ACTIVITIES [email or web address] Anesthesia Postop Eval I: Summary Notes Anesthesia Complication No 01/27/25 13:10 ACTIVITIES [email or web address] Anesthesia Complication Comment: Post-operative progress note Anesthesia: Postop Eval II Evaluation Mental status: Awake and Calm Pain Level: 0 nausea: No Vomiting: No Complications Anesthesia Complication: No
--- NOTE | 2025-01-27 17:58 | NURSING ---
CRIMINAL DEFENSE ATTORNEY documentation reviewed.
--- NOTE | 2025-01-27 18:08 | PCM.OPRPT ---
Operative Report (Standard) Operative Information Date of Procedure: 01/27/25 Pre-Operative Diagnosis: Left knee osteoarthritis Post-Operative Diagnosis: Left knee osteoarthritis Surgery/Procedure Performed: Robotic arm assisted left total knee arthroplasty silk screen painter: Yes Customer Service Operator: Cristiana Rivers Tasks completed by assistant professor of theater: Opening & closing, Implanting device, Hemostasis: Electrocautery and Retracting Type of Anesthesia: Spinal/Supplemental RN Documented Start/Stop Times: Operation Date: 01/27/25 10:45 Case Time Into Pre-Op 01/27/25 08:47 Anesthesia Start 01/27/25 11:18 Into Room 01/27/25 11:18 Procedure Start 01/27/25 11:42 Procedure End 01/27/25 12:49 Anesthesia End 01/27/25 12:56 Out of Room 01/27/25 12:56 Into Recovery 01/27/25 12:58 Out of Recovery 01/27/25 14:11 Procedure Start Time: 11:42 Procedure Stop Time: 12:49 Select all DRAINS/GRAFTS/IMPLANTS that apply: Implanted device Implanted device details: [place] press-fit triathlon 4 CR femur, 4 press-fit tibia, CS 9 mm polyethylene Estimated Blood Loss: 50 cc Specimen collected: No Description of surgery: Patient was identified in the preoperative holding area by name, medical record number, and date of . Informed set was confirmed with the patient. The operative knee was marked with a surgical marker. At time of his procedure, patient brought to the operative suite and positioned supine a standard operating table. Anesthesia then administered a spinal anesthetic. He was then repositioned in the supine position with all bony prominences well-padded. We then placed a well-padded pneumatic tourniquet on the left upper thigh. The left upper extremity was brought across patient's chest throughout the procedure. We then prepped and draped the left lower extremity in a normal, sterile orthopedic fashion. We performed a timeout with all parties in attendance in agreement with the side, site, operation be performed. No concerns were voiced and would like to proceed with surgery. 2 g Ancef was administered prior to the incision by anesthesia staff as well as 1 g IV TXA. First exsanguinated the left lower extremity with a Esmarch bandage. Tourniquet was inflated to 250 mmHg for approximately 45 minutes. Esmarch was removed. I planned a standard midline approach to the left knee approximately 15 cm in length. Skin was sharply incised with a 10 blade scalpel developing full-thickness layers down to the retinaculum. Layers were developed identifying the VMO. I then planned a standard medial parapatellar arthrotomy performed in flexion. The anterior horn of the medial meniscus was released. Hoffa's fat pad was then released. I then everted the patella in extension and brought the knee into 90 degrees of flexion. The anterior horn of the lateral meniscus was then released. The ACL was split in its mid substance with a 10 blade. We then brought the knee back into extension. 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 I then placed pins in the metaphyseal distal femur medial to lateral for the Vadim arrays. In similar fashion, I made a 2 cm incision approximately a handsbreadth distal to the tibial tubercle along the medial aspect of the tibia, drilling 2 bicortical pins for the tibial array. The knee was brought into flexion. The patella was subluxed laterally but not everted. Medial lateral retractors were placed. We then utilized the Last.fm software to confirm our planned surgical procedure and oriented with the patient's osseous anatomy. All checks with the Last.fm system were confirmed. Patient had a significant fixed varus deformity after performing stress examination utilizing the Last.fm software. We elected to place the tibial baseplate in approximately 3 degrees of varus to allow for appropriate balancing. Sawblade was then brought in. I first started with the tibial cut, ensuring protection of the MCL and patellar tendon. A tibial wafer was then excised. I then proceeded to make the posterior femoral, anterior, anterior chamfer cuts with the same blade. Ligaments were protected with [employer] retractors. Sawblade was then exchanged to perform the distal femoral and posterior chamfer cuts. The robot was then removed from the surgical field. Remaining loose bone and meniscus was excised carefully. Posterior osteophytes were removed from the distal femur with a curved osteotome and rongeur. Trial components were then placed. Balance was excellent in both extension and 90 degrees flexion. No mid flexion instability was apparent. Tracking was excellent. We then marked for tibial baseplate. Distal femoral pegs were drilled. Tibial keel was punched. Trials were removed. Periarticular block was administered. The wound was copiously irrigated with normal saline solution. Tourniquet was deflated. Hemostasis was excellent. An additional 1 g TXA was administered IV. Tibial and subsequently femoral components were impacted in standard fashion with good time 0 pullout strength. I selected a size 9 mm polyethylene which was placed and impacted per pumper gager recommendations. Final components appeared very well balanced with excellent range of motion. There was no significant remaining flexion contracture. The wound was copiously irrigated with normal saline solution. Capsule was closed watertight with #1 strata fix barbed suture. Deeper report muscle layer was reapproximated with 0 Vicryl suture. Dermis was reapproximated buried interrupted 2-0 Vicryl suture. Skin was finally reapproximated alfredo. Patient tolerated the procedure well without apparent complication. He was safely awakened in the operative suite, transferred to his hospital bed and subsequently to PACU in stable condition. Need for skilled assistant chief train dispatcher: Cristiana Rivers PA-C was critical to the outcome of the case. During the course of the procedure the physician assistant chief train dispatcher played a vital role. Her intimate knowledge of my steps in the procedure aided in safe and expedient completion of the procedure. The PA played a vital role in positioning particularly in obtaining the appropriate positioning. The PA was also vital in the retraction of soft tissues during the exposure and projecting vital structures. The PA was also vital and protecting soft tissues during times of bony cuts. She also played a vital role in closure with my direct supervision. The PA was also important during reduction and dislocation of the joint and trials intraoperatively. Post Operative Plan: Patient will be placed in observation overnight due to comorbidities including CVA, diabetes mellitus and rheumatoid arthritis. Weightbearing: Range of motion and weightbearing as tolerated left lower extremity. Antibiotics: Ancef 2 g every 8 hours x 3 doses. 1 week doxycycline upon discharge due to comorbidities meeting indication for prolonged prophylactic course. DVT Prophylaxis: Multimodal with aspirin twice daily, SCDs, ELVA hose and early mobilization Prieto: None Dressing: Maintain silver dressing x5 days X-Rays: 2-week x-rays in the office. Follow-up: 2 weeks in my office for staple removal Surgical Findings: Fixed varus deformity left knee. Stable left knee following final implantation with excellent tracking. Complications Complications: No Admit VTE Documentation VTE Present on Admission: No VTE Mechan Device Prophylaxis: SCD's and Thigh High ELVA Hose VTE Pharm Prophylaxis ordered?: Yes
[2025-01-27] MEDS: Cefazolin 2 GM in 0.9% Normal Saline (100mL Bag) 100 ML IV (18:38)
[2025-01-27] MEDS: Senna/Docusate Sodium 1 Tablet 2 TABLET PO (21:29)
[2025-01-28 01:31] VITALS: BP 150/78; PULSE 67; RESP 18; TEMP 36.2; O2SAT 94
[2025-01-28] MEDS: Cefazolin 2 GM in 0.9% Normal Saline (100mL Bag) 100 ML IV ×2 (01:47→10:12)
[2025-01-28 06:20] VITALS: BP 146/79; PULSE 71; RESP 18; TEMP 36.4; O2SAT 97
[2025-01-28] MEDS: Ensure Surgery 237 ML LIQUID PO (07:49)
[2025-01-28] MEDS: Senna/Docusate Sodium 1 Tablet 2 TABLET PO (07:52)
[2025-01-28 08:00] VITALS: BP 147/83; PULSE 75; RESP 18; TEMP 36.3; O2SAT 98
--- NOTE | 2025-01-28 08:39 | PN.HOSP_ITS ---
Subjective Subjective Doing well postoperative, no issues overnight. Pain is controlled Objective Data Objective Data Vital Signs: Vital Signs Temp Pulse Resp BP Pulse Ox O2 Del Method O2 Flow Rate 97.3 F L 75 18 147/83 H 98 Room Air 5 01/28/25 08:00 01/28/25 08:00 01/28/25 08:00 01/28/25 08:00 01/28/25 08:00 01/28/25 08:00 01/27/25 15:18 Oxygen Flow Rate (L/min) 5 Oxygen Delivery Method Room Air Weight: 198 lb 6.656 oz Body Mass Index (BMI) 29.2 Intake & Output: Intake and Output for Last 24 Hours 01/27/25 01/28/25 01/29/25 03:59 03:59 03:59 Intake Total 5324 / 5324 300 / 300 Output Total 1600 / 1600 Balance 3724 / 3724 300 / 300 Lab / Micro Data 01/12/25 09:36 01/12/25 09:36 Labs: Laboratory Results - last 24 hr 01/27/25 09:18: POC Glucose 215 H 01/27/25 13:23: POC Glucose 175 H 01/27/25 16:03: POC Glucose 257 H 01/27/25 21:23: POC Glucose 440 H 01/28/25 06:26: POC Glucose 242 H Micro: Microbiology 01/12/25 09:36 Nasal Secretion Nasal Screen MRSA/MSSA - Final Radiography Diagnostic Testing: Radiology Impression Knee X-Ray 01/27/25 13:22 IMPRESSION: Status post left total knee replacement. There is good alignment. Postoperative soft tissue changes. Reading Location: [facility] Physical Exam Narrative General: Alert, Oriented x3, Cooperative, No apparent distress HEENT: Atraumatic, PERRLA, EOMI, Normocephalic Oral: Moist Mucosa Neck: Supple, No JVD Lungs: Diminished, Normal air movement, No rhonchi, No wheeze, No rales Cardiovascular: Regular rate, Regular Rhythm, Normal S1, Normal S2, No murmurs Abdomen: Soft, Non Tender, Non-Distended, No Hepato-splenomegaly Extremities: No edema, Capillary Refill Less than 3 Seconds Skin: Dressing CDI Musculoskeletal: Tenderness above his left knee surgery Neurological: No focal neurological deficits, moves all extremities, sensation intact Psych/Mental Status: Normal Affect, Appropriate Assessment & Plan Assessment/Plan (1) Status post left knee replacement: PLAN: Plan 1. Left knee osteoarthritis status post total knee arthroplasty on 01/27/2025/postoperative urinary retention – PT/OT – Pain management per primary – Medically stable for discharge, he does appear to be voiding on his own now had a straight cath yesterday after surgery – DVT per primary 2. Essential HTN/HLD/history of CVA – Blood pressure stable – Resume his home blood pressure medications – Will monitor and make adjustments as necessary – Continue with his Lipitor 3. DM2 – Sliding scale insulin – Accu-Cheks – Resume his home diabetic medications on discharge 4. Rheumatoid arthritis – Stable – Can resume his home medications when discharged 5. GERD – Stable – Continue with his PPI DVT: Per Ortho Charges/Coding Visit Charges Office Visits / Consults: 84270 OV L3 Est 20min
[2025-01-28] MEDS: 0.9% Saline Lock 10 ML Syringe IV (10:12)
--- NOTE | 2025-01-28 11:39 | PCM.DC.SUM ---
Providers Date of Admission: 01/27/25 Date of Discharge: 01/28/25 Primary Care Physician: Dr. Juan Polanco MD Consultations 01/27/25 13:12 Consult: Hospitalist Routine Consulting Provider: Mark Vernon Reason for Consult: post op medical management EMERGENT Consult: No MD Notified: Yes Date Notified: 01/27/25 Time Notified: 15:20 Method of Notification: Text Reason For Visit: ERAS, ROBOTIC ASSISTED LEFT TOTAL KNEE ARTHROPLAST Diagnosis Discharge Diagnosis (1) Status post left knee replacement: Status: Acute Code(s): Z96.652 - Presence of left artificial knee joint Plan: 1. Will continue PT today. Weightbearing as tolerated 2. plan for discharge this afternoon following PT 3. Patient will follow up for post op appointment as previously scheduled in 2 weeks 4. Patient has outpatient PT appointment Friday 5. DVT prophylaxis : Aspirin 81 mg twice daily x 4 weeks 6. Pain control: patient instructed to take tylenol 500mg 2 tablets TID. and oxycodone 1-2 tablets every 4-6 hours only as needed for pain control. 7. Patient also given a prescription of meloxicam, Pepcid, senna as well as doxycycline 100 mg twice daily x 1 week. 8. ok to remove post op dressing. post op day 5 Medications at Discharge Home Medications leucovorin calcium 5 mg tablet 5 mg PO HANKS 09/16/22 methotrexate sodium 2.5 mg tablet 15 mg PO HANKS 09/16/22 amlodipine 10 mg tablet (Norvasc) 10 mg PO DAILY #30 tabs 09/17/22 aspirin 81 mg chewable tablet 81 mg PO BREAKFAST 30 days #30 tabs 09/17/22 Held on 01/28/25. Instructions: Resume on 02/27/25. atorvastatin 80 mg tablet 80 mg PO QHS 30 days #30 tabs 09/17/22 metformin 500 mg tablet 500 mg PO BID 09/21/22 ramipril 1.25 mg capsule 1.25 mg PO QHS 09/21/22 acetaminophen 325 mg capsule 650 mg PO Q4H PRN pain 01/12/25 Held on 01/28/25. Instructions: Resume on 02/27/25. dapagliflozin propanediol 10 mg tablet (Farxiga) 10 mg PO DAILY 01/12/25 diphenhydramine 25 mg-acetaminophen 500 mg tablet 2 tab PO QHS 01/12/25 Held on 01/28/25. Instructions: Resume on 02/27/25. loratadine 10 mg tablet (Claritin) 10 mg PO DAILY PRN allergy symptoms 01/12/25 omega 1-aie-grp-fish oil 1,200 mg (144 mg-216 mg) capsule (Fish Oil) 2 cap PO DAILY 01/12/25 omeprazole 20 mg capsule,delayed release 20 mg PO DAILY 01/12/25 tamsulosin 0.4 mg capsule 0.4 mg PO QHS 01/12/25 acetaminophen 500 mg tablet 1,000 mg (2 x 500 mg) PO Q8H #120 tabs 01/28/25 aspirin 81 mg chewable tablet 81 mg PO BID 4 weeks #56 tabs 01/28/25 doxycycline hyclate 100 mg capsule 100 mg PO BID 7 days #14 caps 01/28/25 oxycodone 5 mg tablet 5 - 10 mg (1 - 2 x 5 mg) PO .q4-6hrs prn PRN Pain Score 4-10 7 days #60 tabs 01/28/25 sennosides 8.6 mg-docusate sodium 50 mg tablet (Stimulant Laxative Plus) 2 tab PO BID #14 tabs 01/28/25 Hospital Course Operations total knee replacement (left) Summary of Care Provided Hospital Course: Patient is s/p robotic assisted left total knee arthroplasty with Dr. Davis 01/27/2025. Patient resting comfortably in bed. Rates pain 2/ 10 at rest. With movement 4/10. States taking Tylenol and oxycodone and ice help to relieve pain. Patient has been up with therapy. Walking with the assit of a walker. Afebrile, no chest pain, shortness of breath, negative calf pain/ erythema, and no other signs of DVT. Physical Exam Narrative Patient resting comfortably in bed No signs of acute distress Satting well on room air Limb is warm to touch, Sensation intact throughout entire lower extremity, including saphenous, sural, superficial and deep peroneal, and tibial distribution. DP/PT pulses bounding. Dorsiflexion plantarflexion strength 5/5 Dressing clear dry intact Calf nontender to palpation, no erythema, no edema. Negative Homans Weight / BMI Weight Weight: 90 kg Body Mass Index (BMI) 29.2 ABG / Lab / Microbiology Data 01/12/25 09:36 01/12/25 09:36 Laboratory: Laboratory Results - last 24 hr 01/27/25 13:23: POC Glucose 175 H 01/27/25 16:03: POC Glucose 257 H 01/27/25 21:23: POC Glucose 440 H 01/28/25 06:26: POC Glucose 242 H 01/28/25 11:13: POC Glucose 306 H Microbiology: Microbiology 01/12/25 09:36 Nasal Secretion Nasal Screen MRSA/MSSA - Final Radiography Diagnostic Testing: Radiology Impression Knee X-Ray 01/27/25 13:22 IMPRESSION: Status post left total knee replacement. There is good alignment. Postoperative soft tissue changes. Reading Location: [id number] Instructions Discharge Activity: Return to Normal Activity and May Shower Weight Bearing Status: Weight bearing as tolerated Keep extremity elevated above heart level: Operative Extremity Call your doctor if your incision/area has: Continuous Slow Oozing, Sudden Increased Bleeding, Increased Pain/ Swelling, Increased Redness, Foul Smelling Discharge and Swelling at the incision site Call your doctor if you observe: Fever of 101 or Higher, Inability to urinate, Inability to have a bowel movement, Dizziness, Chest pain, Increased palpitations (irregular heartbeat), Calf discomfort and Uncontrolled pain Remove Dressing in: 1 week Cleanse incision/area with: Soap & Water and Keep Dressing Clean & Dry DC O2, CPAP, BIPAP Needs Home O2 Discharge instructions: No DC home with Oxygen: No When: 2 weeks as previously scheduled Meaningful Use Info Meaningful Use Meaningful Use Diagnoses (Choose all that apply): None applicable Discharge Plan Admission Admit Date/Time: 01/27/25 13:13 Attending Provider: Aaron Davis Primary Care Provider: Juan Polanco Consulting Providers: Aaron Hdez Discharge Orders/Prescriptions Prescriptions: New acetaminophen 500 mg Tablet 1,000 mg PO Q8H Qty: 120 0RF aspirin 81 mg Tablet,Chewable 81 mg PO BID 28 Days Qty: 56 0RF sennosides-docusate sodium [Stimulant Laxative Plus] 8.6-50 mg Tablet 2 tab PO BID Qty: 14 0RF oxycodone 5 mg Tablet 5 - 10 mg PO .q4-6hrs prn PRN (Reason: Pain Score 4-10) 7 Days Qty: 60 0RF doxycycline hyclate 100 mg capsule 100 mg PO BID 7 Days Qty: 14 0RF Continued methotrexate sodium 2.5 mg tablet 15 mg PO HANKS Rx Instructions: FRIDAY leucovorin calcium 5 mg tablet 5 mg PO HANKS Rx Instructions: FRIDAY atorvastatin 80 mg Tablet 80 mg PO QHS 30 Days Qty: 30 0RF amlodipine [Norvasc] 10 mg tablet 10 mg PO DAILY Qty: 30 0RF metformin 500 mg Tablet 500 mg PO BID ramipril 1.25 mg capsule 1.25 mg PO QHS dapagliflozin propanediol [Farxiga] 10 mg tablet 10 mg PO DAILY tamsulosin 0.4 mg capsule 0.4 mg PO QHS omega 4-tjq-bld-fish oil [Fish Oil] 1,200 (144-216) mg capsule 2 cap PO DAILY omeprazole 20 mg capsule,delayed release(DR/EC) 20 mg PO DAILY loratadine [Claritin] 10 mg tablet 10 mg PO DAILY PRN (Reason: allergy symptoms) Held aspirin 81 mg Tablet,Chewable 81 mg PO BREAKFAST 30 Days Qty: 30 0RF Hold Instructions: Resume on 02/27/25. acetaminophen 325 mg capsule 650 mg PO Q4H PRN (Reason: pain) Hold Instructions: Resume on 02/27/25. diphenhydramine-acetaminophen 25-500 mg tablet 2 tab PO QHS Hold Instructions: Resume on 02/27/25. Referrals / Follow Up: Juan Polanco MD [Primary Care Provider, Family Practice] Disposition Disposition (needs filled in before D/C Order can be placed): Home, Self Care
--- NOTE | 2025-01-28 12:50 | CASEMGMT ---
Pt with dc order placed. Noted therapy stanislav. DALLIN CM into pt room, pt sitting up in chair with visitor at bedside. Pt has FWW in the room. Pt states he has therapy set up at [facility] on Friday. Pt denies any homegoing needs at this time, he is ready for dc.
[2025-01-28 13:21] VITALS: BP 132/69; PULSE 69; RESP 16; TEMP 37.1; O2SAT 96
--- NOTE | 2025-01-28 13:33 | PHA.DC_ITS ---
Pharmacy [place] Med Reconciliation Pharmacy Service has performed discharge medication reconciliation for this patient. The patient's discharge medication list was reviewed for discrepancies and discrepancies were resolved. Medications at Discharge Home Medications leucovorin calcium 5 mg tablet 5 mg PO HANKS 09/16/22 methotrexate sodium 2.5 mg tablet 15 mg PO HANKS 09/16/22 amlodipine 10 mg tablet (Norvasc) 10 mg PO DAILY #30 tabs 09/17/22 aspirin 81 mg chewable tablet 81 mg PO BREAKFAST 30 days #30 tabs 09/17/22 Held on 01/28/25. Instructions: Resume on 02/27/25. atorvastatin 80 mg tablet 80 mg PO QHS 30 days #30 tabs 09/17/22 metformin 500 mg tablet 500 mg PO BID 09/21/22 ramipril 1.25 mg capsule 1.25 mg PO QHS 09/21/22 acetaminophen 325 mg capsule 650 mg PO Q4H PRN pain 01/12/25 Held on 01/28/25. Instructions: Resume on 02/27/25. dapagliflozin propanediol 10 mg tablet (Farxiga) 10 mg PO DAILY 01/12/25 diphenhydramine 25 mg-acetaminophen 500 mg tablet 2 tab PO QHS 01/12/25 Held on 01/28/25. Instructions: Resume on 02/27/25. loratadine 10 mg tablet (Claritin) 10 mg PO DAILY PRN allergy symptoms 01/12/25 omega 2-pky-vnz-fish oil 1,200 mg (144 mg-216 mg) capsule (Fish Oil) 2 cap PO DAILY 01/12/25 omeprazole 20 mg capsule,delayed release 20 mg PO DAILY 01/12/25 tamsulosin 0.4 mg capsule 0.4 mg PO QHS 01/12/25 acetaminophen 500 mg tablet 1,000 mg (2 x 500 mg) PO Q8H #120 tabs 01/28/25 aspirin 81 mg chewable tablet 81 mg PO BID 4 weeks #56 tabs 01/28/25 doxycycline hyclate 100 mg capsule 100 mg PO BID 7 days #14 caps 01/28/25 oxycodone 5 mg tablet 5 - 10 mg (1 - 2 x 5 mg) PO .q4-6hrs prn PRN Pain Score 4- 10 7 days #60 tabs 01/28/25 sennosides 8.6 mg-docusate sodium 50 mg tablet (Stimulant Laxative Plus) 2 tab PO BID #14 tabs 01/28/25
== END 2025-01-28 13:00 | disposition home or self-care (01) ==
LOC: SDC 13:37 → MS3 13:37
PROVIDERS: Admitting Provider Student in an Organized Health Care Education/Training Program; PCP Family Medicine; Referring Provider Student in an Organized Health Care Education/Training Program; Visit Provider Student in an Organized Health Care Education/Training Program
DX: M17.12 Unilateral primary osteoarthritis, left knee (principal); M06.9 Rheumatoid arthritis, unspecified; E11.9 Type 2 diabetes mellitus without complications; E78.00 Pure hypercholesterolemia, unspecified; Z79.82 Long term (current) use of aspirin; Z87.891 Personal history of nicotine dependence; I10 Essential (primary) hypertension; M21.162 Varus deformity, not elsewhere classified, left knee; Z79.84 Long term (current) use of oral hypoglycemic drugs; Z79.899 Other long term (current) drug therapy; K21.9 Gastro-esophageal reflux disease without esophagitis; N40.1 Benign prostatic hyperplasia with lower urinary tract symptoms; N13.8 Other obstructive and reflux uropathy; R33.8 Other retention of urine
CPT/HCPCS: 27447; S2900; 01402; 36415; 73560; 80048; 82040; 82962; 83036; 85025; 87081; 93005; 94668; 96361; 96365; 96366; 97110; 97116; 97162; 97166; 97530; 99221; C1776; A4216; G0378